=== PATIENT | female | born 1945 | race Caucasian/White ===

== ENCOUNTER 2017-07-25 07:26 | Emergency (ER) | payer MEDICARE, OTHER ==
[~2017-07-25] VITALS: Ht 144.8 cm; Wt 59.0 kg
--- OUTSIDE RECORDS SUMMARY | 2017-07-25 07:32 | XMS REPORT | Continuity of Care Document ---
Author Author [facility] Organization [facility] Address Unknown Phone Unavailable Allergies There is no data. Medications There is no data. Problems There is no data. Procedures There is no data. Results There is no data. Encounters ACCT No. Visit Date/Time Discharge Status Pt. Type Provider Facility Loc./Unit Complaint [id number] 01/31/2017 09:52:42 01/31/2017 23:59:59 [facility] Outpatient Rianna Monsalve [id number] 09/21/2015 13:25:23 09/21/2015 23:59:59 [facility] Outpatient Armando Guillaume [id number] 07/14/2015 10:42:11 07/14/2015 23:59:59 [facility] Outpatient Shama Hutton
--- OUTSIDE RECORDS SUMMARY | 2017-07-25 07:32 | XMS REPORT ---
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 Medications Active Name Start Date Estimated Completion Date SIG Comments alprazolam 0.5 mg oral tablet 01/31/2017 05/01/2017 TAKE 1/2 TO 1 TABLET DAILY IF NEEDED FOR ANXIETY levothyroxine 75 mcg oral tablet 2017 07/30/2017 take 1 tablet (75 mcg) by oral route once daily for 90 days losartan 50 mg oral tablet 2017 07/30/2017 take 1 tablet (50 mg) by oral route once daily for 90 days lovastatin 10 mg oral tablet 2017 07/30/2017 take 1 tablet (10 mg) by oral route once daily with the evening meal for 90 days Name Start Date Expiration Date SIG Comments lovastatin 10 mg oral tablet 09/07/2016 12/06/2016 take 1 tablet (10 mg) by oral route once daily with the evening meal for 90 days Problem List Not available. Vital Signs Date Time BP-Sys(mm[Hg] BP-Alia(mm[Hg]) HR(bpm) RR(rpm) Temp WT HT HC BMI BSA BMI Percentile O2 Sat(%) 01/31/2017 8:59:00 AM 130 mmHg 78 mmHg 78 bpm 18 rpm 97.5 F 135 lbs 58 in 28.21 kg/m2 1.58 m2 97 % Social History Name Description Comments Tobacco Former smoker smoked for years- quit 2009 Alcohol Use - Rare wine 3 or 4 a year Caffeine Current every day Exercises regularly walks daily retired History of Procedures Date Ordered Description Order Status 01/31/2017 12:00 AM Annual wellness visit, Medicare *Subsequent Visits* Reviewed 01/31/2017 12:00 AM Annual depression screening, 15 minutes Reviewed 01/31/2017 12:00 AM LIPID PANEL Reviewed 01/31/2017 12:00 AM COMPLETE CBC W/AUTO DIFF WBC Reviewed 01/31/2017 12:00 AM COMPREHEN METABOLIC PANEL Reviewed 01/31/2017 12:00 AM ROUTINE VENIPUNCTURE Reviewed 01/31/2017 12:00 AM ASSAY OF MAGNESIUM Reviewed 01/31/2017 12:00 AM ASSAY TRIIODOTHYRONINE (T3) Reviewed 01/31/2017 12:00 AM ASSAY OF FREE THYROXINE Reviewed 01/31/2017 12:00 AM ASSAY THYROID STIM HORMONE Reviewed Results Summary Date and Description Results 07/02/2015 8:05 AM TROPONIN-I AD <0.04 ng/mL 07/02/2015 2:00 PM TROPONIN-I AD <0.04 ng/mL 01/31/2017 9:35 AM WBC 6.0 RBC 4.40 HGB 13.40 g/dLHCT 39.30 %MCV 89.0 fLMCH 30.50 pgMCHC 34.10 g/dLRDW SD 39 RDW CV 11.90 %MPV 9.90 fLPLT 287 NRBC# 0.00 NRBC% 0.0 %NEUT 68.50 %%LYMP 20.50 %%MONO 8.80 %%EOS 1.50 %%BASO 0.50 %#NEUT 4.14 #LYMP 1.24 #MONO 0.53 #EOS 0.09 #BASO 0.03 MANUAL DIFF NOT IND GLUCOSE 102.0 mg/dLSODIUM 132.0 mmol/LPOTASSIUM 4.70 mmol/LCHLORIDE 99.0 mmol/LCO2 26.0 mmol/LBUN 8.0 mg/dLCREATININE 0.80 mg/dLSGOT/AST 16.0 IU/LSGPT/ALT 22.0 IU/LALK PHOS 101.0 IU/LTOTAL PROTEIN 6.90 g/dLALBUMIN 4.30 g/dLTOTAL BILI 0.60 mg/ dLCALCIUM 9.40 mg/dLAGE 71 GFR NonAA 71 GFR AA 86 eGFR >60 mL/min/1.73meGFR AA * >60 TRIGLYCERIDES 176.0 mg/dLCHOLESTEROL 234.0 mg/dLHDL 42.0 mg/dLTOT CHOL/ HDL 5.6 LDL (CALC) 157.0 mg/dLMAGNESIUM 2.10 mg/dLT3 TOTAL 94.0 ng/dLFREE T4 1.22 TSH 0.840 uIU/mL History Of Immunizations Not available. 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
--- OUTSIDE RECORDS SUMMARY | 2017-07-25 07:32 | XMS REPORT | CCD ---
Author Author RAJENDRA RADHA MITCHKelly Organization Unknown Address [address] [place] [id number] Care Team Providers Care Medical Reception Specialist Name Role Phone ANGIE DUNN, JULIET Valladares Attphymandy JULIET ADAMS MD Vital Signs Unknown or Not Available. Allergies Allergy Code Allergy Type Reaction Status CLEOCIN 20271224 Drug allergy Active CODEINE 2669 Drug allergy Active Procedures Procedure Code Procedure Type Date CX CHEST [address] 09/26/2015 TROPONIN-I ADV 231653950 SNOMED CT 09/26/[address] 09/26/2015 D DIMER QUANT 016226147 SNOMED CT 09/26/2015 COMPREHENSIVE METABOLIC PANEL 845710351 SNOMED CT 2015 CBC W/ AUTO DIFF (RFLX MAN DIFF IF IND) 3333019 SNOMED CT 09/26/[address] 09/26/2015 ^CBC W/AUTO DIFF 3150090 SNOMED CT 09/26/2015 History of Immunizations Unknown or Not Available. Problems Problem Code Start Date Resolved Date Status CHEST PAIN, RULE OUT ACUTE MYOCARDIAL INFARCTION 39585 Active Results COMPREHENSIVE METABOLIC PANEL - Collect Date/Time: 09/26/2015 14:05 Test Name Code Test Result Test Units Test Ref Range GLUCOSE 2345-7 93 MG/DL L=70 H=100 SODIUM 2951-2 132 MEQ/L L=135 H=148 POTASSIUM 2823-3 3.8 MEQ/L L=3.5 H=5.3 CHLORIDE 2075-0 98 MEQ/L L=96 H=110 CO2 2028-9 23 MEQ/L L=22 H=29 BUN 3094-0 8 MG/DL L=8 H=22 CREATININE 2160-0 0.7 MG/DL L=0.6 H=1.6 SGOT/AST 1920-8 14 IU/L L=10 H=40 SGPT/ALT 1742-6 19 IU/L L=8 H=54 ALK PHOS 6768-6 113 IU/L L=35 H=115 TOTAL PROTEIN 2885-2 7.4 G/DL L=5.5 H=8.5 ALBUMIN 1751-7 4.6 G/DL L=3.1 H=5.4 TOTAL BILI 1975-2 0.5 MG/DL L=0.0 H=1.5 CALCIUM 36662-8 9.7 MG/DL L=8.2 H=10.6 AGE 70 yrs GFR NonAA 83 GFR AA 101 eGFR >60 N/A eGFR AA* >60 N/A CBC W/ AUTO DIFF (RFLX MAN DIFF IF IND) - Collect Date/Time: 09/26/2015 14:05 Test Name Code Test Result Test Units Test Ref Range WBC 21867-3 8.1 TH/CMM L=4.5 H=10.8 RBC 789-8 4.79 ML/CMM L=4.20 H=5.40 HGB 718-7 14.6 G/DL L=12.0 H=16.0 HCT 4544-3 42.0 % L=37.0 H=47.0 MCV 88 FL L=81 H=99 MCH 30.5 PG L=27.0 H=33.0 MCHC 34.8 G/DL L=31.0 H=36.0 RDW SD 40 FL L=36 H=50 RDW CV 12.4 % L=0.0 H=14.8 MPV 9.3 FL L=9.3 H=12.5 PLT 777-3 278 TH/CMM L=130 H=440 NRBC# 0.00 TH/CMM L=0.00 H=0.00 NRBC% 0.0 /100WBC L=0.0 H=2.0 %NEUT 72.9 % %LYMP 19.0 % %MONO 7.1 % %EOS 0.9 % %BASO 0.1 % #NEUT 5.92 TH/CMM L=2.10 H=8.20 #LYMP 1.54 TH/CMM L=0.90 H=5.20 #MONO 0.58 TH/CMM L=0.16 H=1.00 #EOS 0.07 TH/CMM L=0.00 H=0.80 #BASO 0.01 TH/CMM L=0.00 H=0.20 MANUAL DIFF NOT IND N/A D DIMER QUANT - Collect Date/Time: 09/26/2015 14:05 Test Name Code Test Result Test Units Test Ref Range D-DIMER QUANT 28927-9 0.37 MG/L FEU L=0.00 H= 0.50 PT/PTT - Collect Date/Time: 09/26/2015 14:05 Test Name Code Test Result Test Units Test Ref Range PROTIME 00084-6 10.2 SEC L=9.9 H=11.9 INR 0.9 PTT 3173-2 27.4 SEC L=22.2 H=37.2 BNP - Collect Date/Time: 09/26/2015 14:05 Test Name Code Test Result Test Units Test Ref Range BNP 65511-0 13 PG/ML L=0 H=100 TROPONIN-I ADV - Collect Date/Time: 09/26/2015 14:05 Test Name Code Test Result Test Units [place] [address]-3 <0.04 ng/mL L=0.04 H= 0.40 MAGNESIUM - Collect Date/Time: 09/26/2015 14:05 Test Name Code Test Result Test Units Test Ref Range MAGNESIUM 14100-5 2.4 MG/DL L=1.7 H=2.8 Active Medications Medication Code Dose Units Frequency Route Modification Start Date/Time Aspirin 81MG Oral Tablet, Enteric Coated 972393 81 MILLIGRAMS DAILY ORAL 07/02/2015 15:03 Prescription Detail 81 MILLIGRAMS ORAL DAILY Ciprofloxacin 500MG Oral Tablet 791285 500 MILLIGRAMS TWO TIMES A DAY BY MOUTH 07/02/2015 15:03 Prescription Detail 500 MILLIGRAMS BY MOUTH TWO TIMES A DAYx 5 days Levothroid 75MCG Oral Tablet 930743 75 MCG DAILY ORAL 07/02/2015 15:03 Prescription Detail 75 MCG ORAL DAILY except on Monday when 2 tabs ( 150mcg) Lovastatin 10MG Oral Tablet 648004 10 MILLIGRAMS DAILY ORAL 07/02/2015 15:03 Prescription Detail 10 MILLIGRAMS ORAL DAILY Medications Administered During Visit Unknown or Not Available. Encounters Encounter Diagnosis Diagnosis Code Start Date Essential hypertension 73144167 09/26/2015 Social History Smoking Status Code Start Date End Date Never smoker [id number] Patient Decision Aids Unknown or Not Available. Discharge Instructions You were admitted to [facility] on 09/26/2015 13:24 with a principal diagnosis of Essential (primary) hypertension You had the following tests done: BNP CBC W/ AUTO DIFF (RFLX MAN DIFF IF IND) COMPREHENSIVE METABOLIC PANEL D DIMER QUANT MAGNESIUM PT/PTT TROPONIN-I ADV You were discharged from [facility] on 09/26/2015 16:43 Should you have any questions prior to discharge, please contact a member of your healthcare team. If you have left the hospital and have any questions, please contact your primary care physician. Chief Complaint and Reason For Visit Chief Complaint Date of Onset HIGH BLOOD PRESSURE Function Status Unknown or Not Available. Plan of Care Unknown or Not Available. Referral/Transition of Care Unknown or Not Available.
[2017-07-25] MEDS ORDERED: NS IV 1000 ML 1,000 ML IV ONE (07:40)
[2017-07-25] MEDS ORDERED: PROMETHAZINE INJ 25 MG/ML (PHENERGAN) AMP IVP ONE (07:45)
[2017-07-25 08:02] LABS: BASOPHILS % (AUTO) 0 % (0-10); EOSINOPHILS # (AUTO) 0.1 10^3/uL (0.0-0.3); EOSINOPHILS % (AUTO) 1 % (0-10); HEMATOCRIT 39 % (35-52); HEMOGLOBIN 13.4 G/DL (11.5-16.0); LYMPHOCYTES # (AUTO) 1.2 X 10^3 (1.0-4.0); LYMPHOCYTES % (AUTO) 13 % (12-44); MEAN CORPUSCULAR HEMOGLOBIN 30 PG (25-34); MEAN CORPUSCULAR HGB CONC 35 G/DL (32-36); MEAN CORPUSCULAR VOLUME 87 FL (80-99); MEAN PLATELET VOLUME 9.1 FL (7.4-10.4); MONOCYTES # (AUTO) 0.9 X 10^3 (0.0-1.0); MONOCYTES % (AUTO) 10 % (0-12); NEUTROPHILS # (AUTO) 6.8 X 10^3 (1.8-7.8); NEUTROPHILS % (AUTO) 76 % (42-75); PLATELET COUNT 289 10^3/uL (130-400); RED BLOOD COUNT 4.44 10^6/uL (4.35-5.85); RED CELL DISTRIBUTION WIDTH 12.1 % (10.0-14.5); WHITE BLOOD COUNT 8.9 10^3/uL (4.3-11.0)
[2017-07-25 08:19] LABS: ALANINE AMINOTRANSFERASE 25 U/L (0-55); ALKALINE PHOSPHATASE 103 U/L (40-136); BILIRUBIN,TOTAL 0.7 MG/DL (0.1-1.0); BUN/CREATININE RATIO 13; CALCIUM 9.3 MG/DL (8.5-10.1); CARBON DIOXIDE 25 MMOL/L (21-32); CHLORIDE 98 MMOL/L (98-107); CREATININE SERUM 0.77 MG/DL (0.60-1.30); GFR ESTIMATED > 60; GLUCOSE 119 MG/DL (70-105); MAGNESIUM 2.1 MG/DL (1.8-2.4); SODIUM 133 MMOL/L (135-145); TOTAL PROTEIN 6.9 GM/DL (6.4-8.2)
[2017-07-25] MEDS ORDERED: ALPR0.5T7 PO (08:25)
[2017-07-25] MEDS ORDERED: LEVO75TA6 PO (08:25)
[2017-07-25] MEDS ORDERED: LOSA50TA36 PO (08:25)
[2017-07-25] MEDS ORDERED: LOVA10TA PO (08:25)
[2017-07-25 08:40] LABS: FREE T4 (FREE THYROXINE) 1.11 NG/DL (0.70-1.48)
--- NOTE | 2017-07-25 09:10 | Diagnostic Imaging Report ---
CLINICAL INDICATION: Patient reports nausea/dizziness starting at 0430 hours. EXAM: Portable chest x-ray upright view. COMPARISONS: None. FINDINGS: Lungs/pleura: There is suspected mild left basilar atelectasis versus scarring. Otherwise, lungs are clear. There is no pneumothorax. There is no pleural effusion. Mediastinum: Unremarkable. Pulmonary vasculature: Unremarkable. Heart: Unremarkable. Bones/extrathoracic soft tissue: There are degenerative spurs involving the bilateral acromioclavicular joints. IMPRESSION: Suspected mild left basilar atelectasis versus scarring. Otherwise, there is no radiographic evidence of acute cardiopulmonary process. Dictated by: Dictated on workstation # [id number]
[2017-07-25 09:30] LABS: BILIRUBIN,URINE NEGATIVE (NEGATIVE); CLARITY,URINE CLEAR; COLOR,URINE YELLOW; GLUCOSE, URINE (UA) NEGATIVE (NEGATIVE); KETONES,URINE NEGATIVE (NEGATIVE); LEUKOCYTE ESTERASE ,URINE NEGATIVE (NEGATIVE); NITRITE,URINE NEGATIVE (NEGATIVE); PH,URINE 8 (5-9); PROTEIN,URINE NEGATIVE (NEGATIVE); UROBILINOGEN,URINE NORMAL (NORMAL)
[2017-07-25 09:46] LABS: AMORPHOUS SEDIMENT,UR FEW AMOR PHOSPHATE /LPF; BACTERIA,URINE NEGATIVE /HPF; SQUAMOUS EPITHELIAL CELL,UR 0-2 /HPF
--- NOTE | 2017-07-25 10:28 | ED Syncope ---
General Chief Complaint: Dizziness/Syncope Stated Complaint: WEAKNESS,SYNCOPE Nursing Triage Note: pt reports nausea/dizziness starting at 0430 am. Source of Information: Patient, EMS Exam Limitations: No Limitations History of Present Illness Time Seen by Provider: 07:29 Initial Comments This 72-year-old woman presents to emergency room via EMS after having fairly sudden onset of dizziness and suspected syncope at home. She woke at 04:00 with a severe cramp in her leg. She thinks she then lost consciousness, possibly because of passing out secondary to pain. She was sweaty and nauseated during the episode. EMS reports fingerstick blood sugar was 136. Temperature was 95.9. Zofran 4 mg was administered. Patient reports still feeling lightheaded. She denies any shortness of air or chest pain. She lost urine during the episode. There was no evidence of seizure-like activity or postictal state. She feels a little weak and chilled. She denies signs of infection such as cough or dysuria. She has had no prior episodes. Allergies and Home Medications Allergies Coded Allergies: codeine (Verified Allergy, Unknown, 07/25/17) Home Medications Alprazolam 0.5 Mg Tablet, 0.25 MG PO PRN, (Reported) Levothyroxine Sodium 75 Mcg Tablet, 75 MCG PO DAILY, (Reported) Losartan Potassium 50 Mg Tablet, 50 MG PO DAILY, (Reported) Lovastatin 10 Mg Tablet, 10 MG PO DAILY, (Reported) Constitutional: see HPI EENTM: no symptoms reported Respiratory: no symptoms reported Cardiovascular: see HPI, syncope Gastrointestinal: see HPI Genitourinary: see HPI : No Musculoskeletal: see HPI Skin: no symptoms reported Psychiatric/Neurological: No Symptoms Reported Past Fjiivsy-Dmydaj-Afombn Hx Patient Social History Alcohol Use: Rarely Uses Recreational Drug Use: No Smoking Status: Former Smoker Former Smoker, Quit: Aug 03, 2009 2nd Hand Smoke Exposure: No Recent Foreign Travel: No Contact w/Someone Who Travel: No Recent Infectious Disease Expo: No Recent Hopitalizations: No Physical Abuse: No Sexual Abuse: No Mistreated: No Fear: No Surgeries History of Surgeries: Yes (r shoulder, r/l carpal tunnel, r hand ) Surgeries: Hysterectomy, Oophorectomy, Orthopedic Respiratory History of Respiratory Disorde: No Cardiovascular History of Cardiac Disorders: Yes Cardiac Disorders: High Cholesterol, Hypertension Neurological History of Neurological Disord: No Genitourinary History of Genitourinary Disor: No Gastrointestinal History of Gastrointestinal Di: No Musculoskeletal History of Musculoskeletal Dis: No Endocrine History of Endocrine Disorders: Yes Endocrine Disorders: Hypothyroidsim HEENT History of HEENT Disorders: No Cancer History of Cancer: No Psychosocial History of Psychiatric Problem: Yes Behavioral Health Disorders: Anxiety Suicide Risk Score: 0 Blood Transfusions History of Blood Disorders: No Adverse Reaction to a Blood Tr: No Physical Exam Vital Signs Vital Sign - Last 12Hours 07/25/17 07:45 Temp 97.2 Pulse 64 Resp 15 B/P (MAP) 173/94 (120) Pulse Ox 99 Capillary Refill : Less Than 3 Seconds General Appearance: No Apparent Distress, WD/WN HEENT: PERRL/EOMI, Normal ENT Inspection, Other (Referring somewhat dry. Tympanic membrane's obscured by cerumen bilaterally) Neck: Normal Inspection, Non Tender, Supple, No Carotid Bruit, No JVD Cardiovascular: Regular Rate, Rhythm, No Edema, No Murmur, Normal Peripheral Pulses Respiratory: Lungs Clear, Normal Breath Sounds, No Accessory Muscle Use, No Respiratory Distress Gastrointestinal: Normal Bowel Sounds, Non Tender, Soft Back: Normal Inspection Extremities: Normal Inspection, Non Tender, No Calf Tenderness, No Pedal Edema , Other (Negative Nichole. 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 Norm as Tested Cranial Nerves: Normal Hearing, Normal Speech, PERRL Motor/Sensory: No Motor Deficit, No Sensory Deficit, No Pronator Drift Skin: Normal Color, Warm/Dry Progress/Results/Core Measures Results/Orders Lab Results Laboratory Tests Test 07/25/17 07:52 07/25/17 09:25 Range/Units White Blood Count 8.9 4.3-11.0 10^3/uL Red Blood Count 4.44 4.35-5.85 10^6/uL Hemoglobin 13.4 11.5-16.0 G/DL Hematocrit 39 35-52 % Mean Corpuscular Volume 87 80-99 FL Mean Corpuscular Hemoglobin 30 25-34 PG Mean Corpuscular Hemoglobin Concent 35 32-36 G/DL Red Cell Distribution Width 12.1 10.0-14.5 % Platelet Count 289 130-400 10^3/uL Mean Platelet Volume 9.1 7.4-10.4 FL Neutrophils (%) (Auto) 76 H 42-75 % Lymphocytes (%) (Auto) 13 12-44 % Monocytes (%) (Auto) 10 0-12 % Eosinophils (%) (Auto) 1 0-10 % Basophils (%) (Auto) 0 0-10 % Neutrophils # (Auto) 6.8 1.8-7.8 X 10^3 Lymphocytes # (Auto) 1.2 1.0-4.0 X 10^3 Monocytes # (Auto) 0.9 0.0-1.0 X 10^3 Eosinophils # (Auto) 0.1 0.0-0.3 10^3/uL Basophils # (Auto) 0.0 0.0-0.1 10^3/uL Sodium Level 133 L 135-145 MMOL/L Potassium Level 5.0 3.6-5.0 MMOL/L Chloride Level 98 98-107 MMOL/L Carbon Dioxide Level 25 21-32 MMOL/L Anion Gap 10 5-14 MMOL/L Blood Urea Nitrogen 10 7-18 MG/DL Creatinine 0.77 0.60-1.30 MG/DL Estimat Glomerular Filtration Rate > 60 BUN/Creatinine Ratio 13 Glucose Level 119 H 70-105 MG/DL Calcium Level 9.3 8.5-10.1 MG/DL Magnesium Level 2.1 1.8-2.4 MG/DL Total Bilirubin 0.7 0.1-1.0 MG/DL Aspartate Amino Transf (AST/SGOT) 17 5-34 U/L Alanine Aminotransferase (ALT/SGPT) 25 0-55 U/L Alkaline Phosphatase 103 40-136 U/L Troponin I < 0.30 <0.30 NG/ML Total Protein 6.9 6.4-8.2 GM/DL Albumin 4.0 3.2-4.5 GM/DL Thyroid Stimulating Hormone (TSH) 4.93 0.35-4.94 UIU/ML Free Thyroxine 1.11 0.70-1.48 NG/DL Urine Color YELLOW Urine Clarity CLEAR Urine pH 8 5-9 Urine Specific Henry 1.015 L 1.016-1.022 Urine Protein NEGATIVE NEGATIVE Urine Glucose (UA) NEGATIVE NEGATIVE Urine Ketones NEGATIVE NEGATIVE Urine Nitrite NEGATIVE NEGATIVE Urine Bilirubin NEGATIVE NEGATIVE Urine Urobilinogen NORMAL NORMAL MG/DL Urine Leukocyte Esterase NEGATIVE NEGATIVE Urine RBC (Auto) NEGATIVE NEGATIVE Urine RBC NONE /HPF Urine WBC NONE /HPF Urine Squamous Epithelial Cells 0-2 /HPF Urine Crystals PRESENT H /LPF Urine Amorphous Sediment FEW KEMAR PHOSPHATE H /LPF Urine Bacteria NEGATIVE /HPF Urine Casts NONE /LPF Urine Mucus NEGATIVE /LPF Urine Culture Indicated NO Micro Results Microbiology 07/25/17 Influenza Types A,B Antigen (BETH) - Final, Complete My Orders Orders - KATARZYNA MITTAL MD Cbc With Automated Diff (07/25/17 07:40) Comprehensive Metabolic Panel (07/25/17 07:40) Magnesium (07/25/17 07:40) Thyroid Stimulating Hormone (07/25/17 07:40) Troponin I (07/25/17 07:40) Ua Culture If Indicated (07/25/17 07:40) Free T4 (Free Thyroxine) (07/25/17 07:40) Saline Lock/Iv-Start (07/25/17 07:40) Ns Iv 1000 Ml (Sodium Chloride 0.9%) (07/25/17 07:40) Promethazine Injection (Phenergan Injec (07/25/17 07:45) Ekg Tracing (07/25/17 07:40) Monitor-Rhythm Ecg Trace Only (07/25/17 07:40) Influenza A And B Antigens (07/25/17 07:46) Saline Lock/Iv-Start (07/25/17 07:46) Chest 1 View, Ap/Pa Only (07/25/17 08:48) Medications Given in ED Current Medications Medications Dose Ordered Sig/Fátima Route Start Time Stop Time Status Last Admin Dose Admin Promethazine HCl 12.5 mg ONCE ONCE IVP 07/25/17 07:45 07/25/17 07:46 DC 07/25/17 08:12 12.5 MG Sodium Chloride 1,000 ml @ 0 mls/hr Q0M ONCE IV 07/25/17 07:40 07/25/17 07:46 DC 07/25/17 08:12 0 MLS/HR Vital Signs/I&O Vital Sign - Last 12Hours 07/25/17 07/25/17 07:45 11:05 Temp 97.2 98.6 Pulse 64 72 Resp 15 16 B/P (MAP) 173/94 (120) Pulse Ox 99 98 Blood Pressure Mean: 120 Progress Note : Progress Note Workup was unremarkable. Promethazine was given for residual nausea. Patient received a liter of IV fluids. Lightheadedness resolved. She was able to ambulate with out neurologic deficit. She does have some difficulty ambulating due to chronic left foot pain. She is ultimately discharged in stable condition. ECG Initial ECG Impression Date: Jul 25, 2017 Initial ECG Impression Time: 07:31 Initial ECG Rate: 64 Initial ECG Rhythm: Normal Sinus Initial ECG Intervals: Normal Initial ECG Impression: Normal Comment Normal sinus rhythm with no ST elevation or depression. No abnormal intervals or axis deviation. Diagnostic Imaging Diagonstic Imaging: Xray Plain Films/CT/US/NM/MRI: chest Comments Chest x-ray viewed by me. Report reviewed. See report below: NAME: NOEMI [facility] REC#: [id number] PT STATUS: DEP ER : 1945 PHYSICIAN: KATARZYNA MITTAL MD ADMIT DATE: 07/25/17/ER Signed Date of Exam: 07/25/17 CHEST 1 VIEW, AP/PA ONLY CLINICAL INDICATION: Patient reports nausea/dizziness starting at 0430 hours. EXAM: Portable chest x-ray upright view. COMPARISONS: None. FINDINGS: Lungs/pleura: There is suspected mild left basilar atelectasis versus scarring. Otherwise, lungs are clear. There is no pneumothorax. There is no pleural effusion. Mediastinum: Unremarkable. Pulmonary vasculature: Unremarkable. Heart: Unremarkable. Bones/extrathoracic soft tissue: There are degenerative spurs involving the bilateral acromioclavicular joints. IMPRESSION: Suspected mild left basilar atelectasis versus scarring. Otherwise, there is no radiographic evidence of acute cardiopulmonary process. Dictated by: Dictated on workstation # [id number] Dict: 07/25/17 0907 Trans: 07/25/17 1718 Interpreted by: CAMRON PRIETO MD Departure Impression Impression: Primary Impression: Syncope Qualified Codes: R55 - Syncope and collapse Additional Impressions: Lightheadedness Nausea Cerumen impaction Qualified Codes: H61.20 - Impacted cerumen, unspecified ear Left foot pain Disposition: 01 HOME, SELF-CARE Condition: Improved Departure-Patient Inst. Decision time for Depature: 10:20 Referrals: NO,LOCAL PHYSICIAN (PCP) Primary Care Physician CHEYENNE TOLEDO DPM Patient Instructions: Syncope (Fainting) (DC) Add. Discharge Instructions: Follow-up with your primary care provider as soon as possible. Return to the emergency room if you have worsening symptoms again. Drink plenty of clear liquids and continue your medications as previously prescribed. Follow-up with a theater education teacher for your left foot pain and overriding toes. Use an [id number] earwax removal drops for your cerumen impaction. All discharge instructions reviewed with patient and/or family. Voiced understanding. KATARZYNA MITTAL MD Jul 25, 2017 10:28
[2017-07-25 11:05] VITALS: BP 142/60
== END 2017-07-25 10:51 | disposition home or self-care (01) ==
LOC: ER 07:29
DX: R55 Syncope and collapse (principal); R42 Dizziness and giddiness; H61.20 Impacted cerumen, unspecified ear; R11.0 Nausea; M79.672 Pain in left foot; F41.9 Anxiety disorder, unspecified; E03.9 Hypothyroidism, unspecified; E78.00 Pure hypercholesterolemia, unspecified; I10 Essential (primary) hypertension; Z90.710 Acquired absence of both cervix and uterus; Z87.891 Personal history of nicotine dependence
CPT/HCPCS: 36415; 71045; 80053; 81000; 83735; 84439; 84443; 84484; 85025; 87804; 93005; 93041

== ENCOUNTER → 2017-09-30 | Outpatient (CLI) | payer MEDICARE, OTHER ==
[~2017-09-30] MED LIST: ALPR0.5T7 PO; LEVO75TA6 PO; LOSA50TA36 PO; LOVA10TA PO
--- NOTE | 2017-09-30 16:31 | Diagnostic Imaging Report ---
EXAM: Lumbar spine - 2-3 views. INDICATION: Fall. COMPARISON: None. FINDINGS: There are five lumbar type vertebral bodies. Normal alignment. Vertebral body heights are preserved. Mild diffuse degenerative endplate changes and lower lumbar facet arthropathy. Sacroiliac joints are unremarkable. The sacrum is normal, where seen. IMPRESSION: Mild spondylotic changes in the lumbar spine. No acute osseous findings. Dictated by: Dictated on workstation # [id number]
--- NOTE | 2017-09-30 16:32 | Diagnostic Imaging Report ---
EXAM: PELVIS WITH RIGHT HIP 2-3VIEWS INDICATION: FALL COMPARISON: None. FINDINGS: No fracture or malalignment. Mild degenerative changes in the visualized lower lumbar spine and pubic symphysis. Large amount of stool throughout the visualized colon. Soft tissue shadows are otherwise unremarkable. IMPRESSION: No acute radiographic findings in the pelvis. Dictated by: Dictated on workstation # [id number]
== END ==
LOC: RAD 15:25
PROVIDERS: ATTEND Nurse Practitioner Family
DX: M47.816 Spondylosis without myelopathy or radiculopathy, lumbar region (principal); R10.2 Pelvic and perineal pain; W19.XXXA Unspecified fall, initial encounter
CPT/HCPCS: 72100

== ENCOUNTER 2018-01-09 14:58 | Outpatient (RCR) | payer MEDICARE, OTHER ==
[~2018-01-09 14:58] MED LIST changes: +AMLO5TAB2 PO; +ASPI-586 PO; +ASPI-983 PO; +CHOL100048 PO; +FISH1CAP15 PO; +GABA-486 PO; +LEVOTHROID; +MULT-593 PO
== END 2018-01-09 17:08 | disposition home or self-care (01) ==
PROVIDERS: ATTEND Family Medicine
DX: M54.41 Lumbago with sciatica, right side (principal); R53.1 Weakness

== ENCOUNTER → 2018-04-12 | Outpatient (CLI) | payer MEDICARE, OTHER ==
[~2018-04-12] MED LIST changes: -AMLO5TAB2 PO; +AMLO5TAB7 PO; -LOSA50TA36 PO; +LOSA50TA7 PO
--- NOTE | 2018-04-12 16:26 | Diagnostic Imaging Report ---
EXAMINATION: Lumbar spine at 11:07 a.m. INDICATION: Fell, back pain. FINDINGS: AP, lateral, and spot lateral views were obtained. The lateral view shows the vertebral body heights and alignment to be generally within normal limits and similar to the prior exam of 09/30/2017. There is no fracture or acute bony abnormality evident. The osseous structures do seem demineralized however. There is no sign of a paraspinal mass. There is moderate symmetrical sclerosis of the sacroiliac joints. The sacrum and coccyx where visualized show no abnormality. IMPRESSION: 1. There is no evidence for an acute bony abnormality. 2. If clinical concern regarding an acute or subacute abnormality persists and further imaging is desired, then MRI will be recommended. Dictated by: Dictated on workstation # [id number]
--- NOTE | 2018-04-12 18:11 | Diagnostic Imaging Report ---
EXAMINATION: Right shoulder at 11:07 a.m. INDICATION: Fell, shoulder pain. FINDINGS: Three views were obtained. There is no fracture, dislocation, or acute bony abnormality evident. There is moderate degenerative disease involving the glenohumeral joint and the acromioclavicular joint does seem widened. This finding is similar to the prior chest exam of 11/10/2017. I suspect that this appearance is related to a long-standing acromioclavicular separation. The soft tissues are unremarkable. IMPRESSION: There is no evidence for an acute bony abnormality. Dictated by: Dictated on workstation # [id number]
== END ==
LOC: RAD 10:15
PROVIDERS: ATTEND Nurse Practitioner Family
DX: M25.511 Pain in right shoulder (principal); M54.5 Low back pain; W19.XXXA Unspecified fall, initial encounter
CPT/HCPCS: 72100; 73030

== ENCOUNTER 2018-07-10 09:31 | Outpatient (RCR) | payer MEDICARE, OTHER | END 2018-07-10 10:23 | disposition home or self-care (01) | PROVIDERS: ATTEND Nurse Practitioner Family | DX: M54.5 Low back pain (principal); M25.511 Pain in right shoulder ==

== ENCOUNTER 2018-10-31 09:36 | Emergency (ER) | payer MEDICARE, OTHER ==
[~2018-10-31] VITALS: Ht 160 cm; Wt 56.7 kg
[~2018-10-31 09:36] MED LIST changes: -AMLO5TAB7 PO; +AMLO5TAB9 PO; +LOSA50TA63 PO; -LOSA50TA7 PO
--- OUTSIDE RECORDS SUMMARY | 2018-10-31 09:42 | XMS REPORT | CCD ---
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 Name Role Phone PP Unavailable CCM Unavailable Summary Purpose Interface Exchange Insurance Providers Payer name Policy type / Coverage type Covered libertarian ID Effective Begin Date Effective End Date [employer] Medicare Part B [id number] Unknown [employer] Medicare Part B [id number] Unknown Family history Sister Diagnosis Age At Onset Breast cancer Unknown Depression Unknown Hypertension Unknown Alcoholism Unknown Cancer Unknown Mother Diagnosis Age At Onset kidney disease Unknown Hypertension Unknown Arthritis Unknown Osteoporosis Unknown Father Diagnosis Age At Onset Skin cancer Unknown Hypertension Unknown Brother Diagnosis Age At Onset Hypertension Unknown Social History Social History Element Codes Description Effective Dates Marital status Unknown 11/17/2017 Number of children Unknown 3 11/17/2017 Employment Unknown Retired 11/17/[address]: 6805850 Former smoker Quit in 200911/17/[address]: 200984819 Never drinks alcohol 11/17/2017 Allergies, Adverse Reactions, Alerts Substance Reaction Codes Entered Date Inactivated Date Status * NO KNOWN ENVIRONMENTAL ALLERGIES Unknown 11/17/2017 No Inactive Date Active * OTHER REACTION - SEE ANSWER BOX "[place]" Unknown 11/17/2017 No Inactive Date Active * NO KNOWN FOOD ALLERGIES Unknown 11/17/2017 No Inactive Date Active CODEINE RxNorm: 2670 11/17/2017 No Inactive Date Active Past Medical History Illness Codes Condition Status Onset Date Resolved Date Essential (primary) hypertension ICD-9: 401.1 ICD-10: I10 Active 11/17/2017 Unknown Hypothyroidism, unspecified ICD-9: 244.9 ICD-10: E03.9 Active 04/12/2018 Unknown Mixed hyperlipidemia ICD-9: 272.2 ICD-10: E78.2 Active 11/17/2017 Unknown Nasal congestion ICD-9 : 478.19 ICD-10: R09.81 Active 10/09/2018 Unknown Hypothryroidism Unknown Active 04/12/2018 Unknown Hypo-osmolality and hyponatremia ICD-9: 276.1 ICD-10: E87.1 Active 11/17/2017 Unknown Low back pain ICD-9: 724.2 ICD-10: M54.5 Active 04/12/2018 Unknown Pain in right shoulder ICD-9: 719.41 ICD-10: M25.511 Active 01/09/2018 Unknown Hyperlipidemia Unknown Active 11/17/2017 Unknown Hypertension Unknown Active 11/17/2017 Unknown Hypothyroid Unknown Active 11/17/2017 Unknown Problems Condition Codes Effective Dates Condition Status Essential (primary) hypertension ICD-9: 401.1 ICD-10: I10 11/17/2017 Active Hypothyroidism, unspecified ICD-9: 244.9 ICD-10: E03.9 04/12/2018 Active Mixed hyperlipidemia ICD-9: 272.2 ICD-10: E78.2 11/17/2017 Active Nasal congestion ICD-9 : 478.19 ICD-10: R09.81 10/09/2018 Active Hypothryroidism Unknown 04/12/2018 Active Hypo-osmolality and hyponatremia ICD-9: 276.1 ICD-10: E87.1 11/17/2017 Active Low back pain ICD-9: 724.2 ICD-10: M54.5 04/12/2018 Active Pain in right shoulder ICD-9: 719.41 ICD-10: M25.511 01/09/2018 Active Hyperlipidemia Unknown 11/17/2017 Active Hypertension Unknown 11/17/2017 Active Hypothyroid Unknown 11/17/2017 Active Medications Medication Codes Instructions Start Date Stop Date Status Fill Instructions amlodipine 5 mg tablet RxNorm: 122890 TAKE 1 & 1/2 (ONE & ONE-HALF) TABLETS BY MOUTH ONCE DAILY 08/01/2018 No Stop Date Active lovastatin 10 mg tablet RxNorm: 817984 1 Tablet(s) PO daily 10/201706/20/2019 Active levothyroxine 75 mcg tablet RxNorm: 983596 1 Tablet(s) PO daily 04/13/2018 08/10/2018 Inactive levothyroxine 75 mcg tablet RxNorm: 820375 1 Tablet(s) PO daily 04/13/2018 04/12/2018 Inactive alprazolam 0.5 mg tablet RxNorm: 176127 1/2-1 Tablet(s) PO QDAY PRN 01/09/2018 No Stop Date Active amlodipine 5 mg tablet RxNorm: 944458 1.5 Tablet(s) PO daily 07/07/2018 Inactive dose change to 1.5 tab daily levothyroxine 88 mcg tablet RxNorm: 832227 1 Tablet(s) PO daily 12/08/2017 06/05/2018 Inactive amlodipine 5 mg tablet RxNorm: 874385 1.5 Tablet(s) PO daily 01/08/2018 Inactive dose change to 1.5 tab daily amlodipine 5 mg tablet RxNorm: 629875 1 Tablet(s) PO daily 04/201812/07/2017 Inactive d/c order for 10mg dose amlodipine 10 mg tablet RxNorm: 836292 1 Tablet(s) PO daily 02/201811/29/2017 Inactive aspirin 81 mg effervescent tablet RxNorm: 5484199 1 Tablet(s) PO daily No Start Date Active multivitamin with minerals capsule RxNorm: 1 Capsule(s) PO daily No Start Date Active Vitamin D3 1,000 unit tablet RxNorm: 663117 1 Tablet(s) PO daily No Start Date Active fish oil-dha-epa 1,200 mg-144 mg-216 mg capsule RxNorm: 1 Capsule(s) PO daily No Start Date Active lovastatin 10 mg tablet RxNorm: 986897 1 Tablet(s) PO daily No Start Date 06/25/2018 Inactive alprazolam 0.5 mg tablet RxNorm: 408670 1/2-1 Tablet(s) PO QDAY PRN No Start Date 01/08/2018 Inactive levothyroxine 88 mcg tablet RxNorm: 457347 1 Tablet(s) PO daily No Start Date 12/07/2017 Inactive gabapentin 100 mg capsule RxNorm: 147655 1 Capsule(s) PO QHS No Start Date 04/11/2018 Inactive amlodipine 5 mg tablet RxNorm: 847705 1 Tablet(s) PO daily No Start Date 11/27/2017 Inactive Medication Administered No Medication Administered data Immunizations Vaccine Codes Date Status Influenza CVX: 141 03/24/2017 completed Pneumococcal CVX: 33 01/22/2016 completed Tetanus, Diptheria, Pertussis CVX: 113 completed Tetanus/Diptheria CVX: 113 01/22/1992 completed Assessments Condition Codes Effective Dates Nasal congestion ICD-10: R09.81 ICD-9: 478.19 10/09/2018 Mixed hyperlipidemia ICD-10: E78.2 ICD-9: 272.2 10/09/2018 Hypothyroidism, unspecified ICD-10: E03.9 ICD-9: 244.9 10/09/2018 Essential (primary) hypertension ICD-10: I10 ICD-9: 401.1 10/09/2018 Low back pain ICD-10: M54.5 ICD-9: 724.2 04/12/2018 Pain in right shoulder ICD-10: M25.511 ICD-9: 719.41 04/12/2018 Hypo-osmolality and hyponatremia ICD-10: E87.1 ICD-9: 276.1 12/08/2017 Reason For Visit Reason For Visit Effective Dates Notes hypertension 10/09/2018 hypertension 04/12/2018 hypertension 01/09/2018 hypertension 12/08/2017 hypertension 11/28/2017 hypertension 11/17/2017 Results Observation Observation Code Item Item Code Result Date Comp Metabolic Ooi325 NA 138 mEq/L 10/09/2018 Comp Metabolic Npz769 K 4.1 mEq/L 10/09/2018 Comp Metabolic Hnh006 CL 103 mEq/L 10/09/2018 Comp Metabolic Wtu507 CO2 29.0 mEq/L 10/09/2018 Comp Metabolic Muf346 ANION GAP 10 10/09/2018 Comp Metabolic Rjk661 GLUCOSE 99 mg/dL 10/09/2018 Comp Metabolic Ngi629 Creat 0.8 mg/dL 10/09/2018 Comp Metabolic Ubs373 eGFR 79 ml/min/1.73m2 10/09/2018 Comp Metabolic Rfl804 BUN 13 mg/dL 10/09/2018 Comp Metabolic Hgl180 B/C Ratio 17.1 Ratio 10/09/2018 Comp Metabolic Ato921 CALCIUM 9.5 mg/dL 10/09/2018 Comp Metabolic Vxz084 ALK PHOS 112 U/L 10/09/2018 Comp Metabolic Szi042 AST(SGOT) 14 U/L 10/09/2018 Comp Metabolic Els543 ALT(SGPT) 17 U/L 10/09/2018 Comp Metabolic Tqw682 BILI T 0.5 mg/dL 10/09/2018 Comp Metabolic Kkj042 ALBUMIN 4.1 g/dL 10/09/2018 Comp Metabolic Alo753 TPRO 6.5 g/dL 10/09/2018 Comp Metabolic Cjs754 GLOB 2.4 g/dL 10/09/2018 Comp Metabolic Poy821 A/G Ratio 1.8 Ratio 10/09/2018 Comp Metabolic Vkx296 Osmo 276 mOsmo 10/09/2018 Free T4 Dcn676 FREE T4 1.09 ng/dL 10/09/2018 Tsh Ord6 TSH (3rd IS) 1.12 uIU/mL 10/09/2018 Cbc With Differential Ord2 WBC 9.77 K/ul 10/09/2018 Cbc With Differential Ord2 RBC 4.49 M/ul 10/09/2018 Cbc With Differential Ord2 HGB 13.5 g/dl 10/09/2018 Cbc With Differential Ord2 HCT 39.9 % 10/09/2018 Cbc With Differential Ord2 Neut% 75.2 % 10/09/2018 Cbc With Differential Ord2 Lymph% 14.4 % 10/09/2018 Cbc With Differential Ord2 MCV 88.9 fl 10/09/2018 Cbc With Differential Ord2 [place]% 8.6 % 10/09/2018 Cbc With Differential Ord2 MCH 30.1 pg 10/09/2018 Cbc With Differential Ord2 Eos% 1.7 % 10/09/2018 Cbc With Differential Ord2 MCHC 33.8 pg 10/09/2018 Cbc With Differential Ord2 PLT 307 K/ul 10/09/2018 Cbc With Differential Ord2 Baso% 0.1 % 10/09/2018 Cbc With Differential Ord2 Neut ABS# 7.34 K/ul 10/09/2018 Cbc With Differential Ord2 RDW 12.8 % 10/09/2018 Cbc With Differential Ord2 Lymph ABS# 1.41 K/ul 10/09/2018 Cbc With Differential Ord2 [place] ABS# 0.8 K/ul 10/09/2018 Cbc With Differential Ord2 Eos ABS# 0.2 K/ul 10/09/2018 Cbc With Differential Ord2 Baso ABS# 0.0 K/ul 10/09/2018 Lipid Ord30 CHOL 212 mg/dL 10/09/2018 Lipid Ord30 HDL 47.0 mg/dl 10/09/2018 Lipid Ord30 TRIG 175 mg/dL 10/09/2018 Lipid Ord30 LDL 130 mg/dL 10/09/2018 Lipid Ord30 C/HDL 4.5 Ratio 10/09/2018 Tsh Ord6 TSH (3rd IS) 0.06 uIU/mL 04/12/2018 Free T4 Ixh875 FREE T4 1.38 ng/dL 04/12/2018 Lipid Ord30 CHOL 199 mg/dL 04/12/2018 Lipid Ord30 HDL 42.0 mg/dl 04/12/2018 Lipid Ord30 TRIG 141 mg/dL 04/12/2018 Lipid Ord30 LDL 129 mg/dL 04/12/2018 Lipid Ord30 C/HDL 4.7 Ratio 04/12/2018 Cbc With Differential Ord2 WBC 5.00 K/ul 04/12/2018 Cbc With Differential Ord2 RBC 4.64 M/ul 04/12/2018 Cbc With Differential Ord2 HGB 13.5 g/dl 04/12/2018 Cbc With Differential Ord2 HCT 40.6 % 04/12/2018 Cbc With Differential Ord2 Neut% 59.6 % 04/12/2018 Cbc With Differential Ord2 MCV 87.5 fl 04/12/2018 Cbc With Differential Ord2 Lymph% 26.0 % 04/12/2018 Cbc With Differential Ord2 MCH 29.1 pg 04/12/2018 Cbc With Differential Ord2 [place]% 11.0 % 04/12/2018 Cbc With Differential Ord2 MCHC 33.3 pg 04/12/2018 Cbc With Differential Ord2 Eos% 3.2 % 04/12/2018 Cbc With Differential Ord2 PLT 289 K/ul 04/12/2018 Cbc With Differential Ord2 Baso% 0.2 % 04/12/2018 Cbc With Differential Ord2 RDW 12.9 % 04/12/2018 Cbc With Differential Ord2 Neut ABS# 2.98 K/ul 04/12/2018 Cbc With Differential Ord2 Lymph ABS# 1.30 K/ul 04/12/2018 Cbc With Differential Ord2 [place] ABS# 0.6 K/ul 04/12/2018 Cbc With Differential Ord2 Eos ABS# 0.2 K/ul 04/12/2018 Cbc With Differential Ord2 Baso ABS# 0.0 K/ul 04/12/2018 Comp Metabolic Gzd771 NA 141 mEq/L 04/12/2018 Comp Metabolic Hzo631 K 3.9 mEq/L 04/12/2018 Comp Metabolic Vwy245 CL 106 mEq/L 04/12/2018 Comp Metabolic Glo406 CO2 28.0 mEq/L 04/12/2018 Comp Metabolic Twb359 ANION GAP 11 04/12/2018 Comp Metabolic Sdc911 GLUCOSE 92 mg/dL 04/12/2018 Comp Metabolic Rgb344 Creat 0.7 mg/dL 04/12/2018 Comp Metabolic Dtc459 eGFR 95 ml/min/1.73m2 04/12/2018 Comp Metabolic Arf240 BUN 9 mg/dL 04/12/2018 Comp Metabolic Jtm752 B/C Ratio 13.8 Ratio 04/12/2018 Comp Metabolic Glk634 CALCIUM 9.3 mg/dL 04/12/2018 Comp Metabolic Hie313 ALK PHOS 93 U/L 04/12/2018 Comp Metabolic Ktu402 AST(SGOT) 14 U/L 04/12/2018 Comp Metabolic Rww358 ALT(SGPT) 14 U/L 04/12/2018 Comp Metabolic Waj772 BILI T 0.4 mg/dL 04/12/2018 Comp Metabolic Dts901 ALBUMIN 4.0 g/dL 04/12/2018 Comp Metabolic Tsc918 TPRO 6.4 g/dL 04/12/2018 Comp Metabolic Bqw917 GLOB 2.4 g/dL 04/12/2018 Comp Metabolic Afe790 A/G Ratio 1.7 Ratio 04/12/2018 Comp Metabolic Kco211 Osmo 280 mOsmo 04/12/2018 Comp Metabolic Flq205 NA 139 mEq/L 12/08/2017 Comp Metabolic Tzn134 K 4.1 mEq/L 12/08/2017 Comp Metabolic Nbq399 CL 103 mEq/L 12/08/2017 Comp Metabolic Qcw108 CO2 28.0 mEq/L 12/08/2017 Comp Metabolic Ure298 ANION GAP 12 12/08/2017 Comp Metabolic Rna345 GLUCOSE 120 mg/dL 12/08/2017 Comp Metabolic Ukt852 Creat 0.7 mg/dL 12/08/2017 Comp Metabolic Rwg583 eGFR 90 ml/min/1.73m2 12/08/2017 Comp Metabolic Rol019 BUN 10 mg/dL 12/08/2017 Comp Metabolic Pjp560 B/C Ratio 14.7 Ratio 12/08/2017 Comp Metabolic Bxx023 CALCIUM 9.6 mg/dL 12/08/2017 Comp Metabolic Yon513 ALK PHOS 120 U/L 12/08/2017 Comp Metabolic Vsi957 AST(SGOT) 11 U/L 12/08/2017 Comp Metabolic Eoc609 ALT(SGPT) 13 U/L 12/08/2017 Comp Metabolic Dde905 BILI T 0.4 mg/dL 12/08/2017 Comp Metabolic Kvd616 ALBUMIN 4.0 g/dL 12/08/2017 Comp Metabolic Oxg267 TPRO 6.3 g/dL 12/08/2017 Comp Metabolic Enm711 GLOB 2.3 g/dL 12/08/2017 Comp Metabolic Dzw300 A/G Ratio 1.7 Ratio 12/08/2017 Comp Metabolic Yps394 Osmo 278 mOsmo 12/08/2017 Lipid Ord30 CHOL 207 mg/dL 11/17/2017 Lipid Ord30 HDL 48.0 mg/dl 11/17/2017 Lipid Ord30 TRIG 186 mg/dL 11/17/2017 Lipid Ord30 LDL 122 mg/dL 11/17/2017 Lipid Ord30 C/HDL 4.3 Ratio 11/17/2017 Cbc With Differential Ord2 WBC 8.79 K/ul 11/17/2017 Cbc With Differential Ord2 RBC 4.63 M/ul 11/17/2017 Cbc With Differential Ord2 HGB 13.8 g/dl 11/17/2017 Cbc With Differential Ord2 HCT 40.6 % 11/17/2017 Cbc With Differential Ord2 Neut% 68.8 % 11/17/2017 Cbc With Differential Ord2 MCV 87.7 fl 11/17/2017 Cbc With Differential Ord2 Lymph% 17.5 % 11/17/2017 Cbc With Differential Ord2 MCH 29.8 pg 11/17/2017 Cbc With Differential Ord2 [place]% 11.8 % 11/17/2017 Cbc With Differential Ord2 MCHC 34.0 pg 11/17/2017 Cbc With Differential Ord2 Eos% 1.3 % 11/17/2017 Cbc With Differential Ord2 PLT 573 K/ul 11/17/2017 Cbc With Differential Ord2 Baso% 0.6 % 11/17/2017 Cbc With Differential Ord2 RDW 12.9 % 11/17/2017 Cbc With Differential Ord2 Neut ABS# 6.05 K/ul 11/17/2017 Cbc With Differential Ord2 Lymph ABS# 1.54 K/ul 11/17/2017 Cbc With Differential Ord2 [place] ABS# 1.0 K/ul 11/17/2017 Cbc With Differential Ord2 Eos ABS# 0.1 K/ul 11/17/2017 Cbc With Differential Ord2 Baso ABS# 0.1 K/ul 11/17/2017 Comp Metabolic Tqo789 NA 131 mEq/L 11/17/2017 Comp Metabolic Agj099 K 4.6 mEq/L 11/17/2017 Comp Metabolic Fgz403 CL 96 mEq/L 11/17/2017 Comp Metabolic Yhr678 CO2 26.0 mEq/L 11/17/2017 Comp Metabolic Aow023 ANION GAP 14 11/17/2017 Comp Metabolic Any950 GLUCOSE 110 mg/dL 11/17/2017 Comp Metabolic Sxw462 Creat 0.6 mg/dL 11/17/2017 Comp Metabolic Hmr880 eGFR 104 ml/min/1.73m2 11/17/2017 Comp Metabolic Qyf568 BUN 14 mg/dL 11/17/2017 Comp Metabolic Yzc712 B/C Ratio 23.3 Ratio 11/17/2017 Comp Metabolic Abc751 CALCIUM 9.6 mg/dL 11/17/2017 Comp Metabolic Qsg804 ALK PHOS 232 U/L 11/17/2017 Comp Metabolic Ovl212 AST(SGOT) 10 U/L 11/17/2017 Comp Metabolic Zxf432 ALT(SGPT) 23 U/L 11/17/2017 Comp Metabolic Uif173 BILI T 0.5 mg/dL 11/17/2017 Comp Metabolic Uua387 ALBUMIN 4.1 g/dL 11/17/2017 Comp Metabolic Rox440 TPRO 6.5 g/dL 11/17/2017 Comp Metabolic Jzx722 GLOB 2.4 g/dL 11/17/2017 Comp Metabolic Kjp247 A/G Ratio 1.8 Ratio 11/17/2017 Comp Metabolic Mbq219 Osmo 264 mOsmo 11/17/2017 Review of Systems System Result Effective Dates Constitutional recent illness 10/09/2018 Constitutional No anorexia 10/09/2018 Constitutional No night sweats 2018 Constitutional No chills 10/09/2018 Constitutional No diaphoresis 10/09/2018 Constitutional No fatigue 10/09/2018 Constitutional No fever 10/09/2018 Constitutional No insomnia 10/09/2018 Constitutional No malaise 10/09/2018 Constitutional No weight loss 10/09/2018 Constitutional No weight gain 10/09/2018 Eyes No eye discharge 10/09/2018 Eyes No eye erythema 10/09/2018 Ears/Nose/Throat/Neck nasal allergies Ears/Nose/Throat/Neck nasal discharge Ears/Nose/Throat/Neck No otalgia 2018 Ears/Nose/Throat/Neck sinus congestion Ears/Nose/Throat/Neck No sore throat Cardiovascular No chest pain/pressure Respiratory No cough 10/09/2018 Gastrointestinal No vomiting 10/09/2018 Gastrointestinal No anorexia 10/09/2018 Gastrointestinal No diarrhea 10/09/2018 Gastrointestinal No constipation 2018 Gastrointestinal No abdominal pain 2018 Genitourinary/Nephrology No dysuria 10/09 Musculoskeletal back pain 10/09/2018 Dermatologic No rash 10/09/2018 Neurologic No alteration of consciousness 10/09/2018 Psychiatric No depression 10/09/2018 Endocrine No dry or coarse skin 2018 Hematologic/Lymphatic No abnormal bleeding and bruising 10/09/2018 Musculoskeletal back pain 04/12/2018 Musculoskeletal shoulder pain 04/12/2018 Ears/Nose/Throat/Neck No dental pain Ears/Nose/Throat/Neck No dizziness 2017 Ears/Nose/Throat/Neck No dysphagia 2017 Ears/Nose/Throat/Neck No headache 2017 Ears/Nose/Throat/Neck No hearing loss Ears/Nose/Throat/Neck No nasal allergies 04/12/2018 Ears/Nose/Throat/Neck No nasal discharge 04/12/2018 Ears/Nose/Throat/Neck No postnasal drip 04/12/2018 Ears/Nose/Throat/Neck No sinus congestion 04/12/2018 Ears/Nose/Throat/Neck No sore throat Ears/Nose/Throat/Neck cerumen 04/12/2018 Constitutional No recent illness 2017 Constitutional No anorexia 04/12/2018 Constitutional No night sweats 2017 Constitutional No chills 04/12/2018 Constitutional No diaphoresis 04/12/2018 Constitutional No fatigue 04/12/2018 Constitutional No fever 04/12/2018 Constitutional No insomnia 04/12/2018 Constitutional No malaise 04/12/2018 Constitutional No weight loss 04/12/2018 Constitutional No weight gain 04/12/2018 Eyes No eye discharge 04/12/2018 Eyes No eye erythema 04/12/2018 Cardiovascular No chest pain/pressure Cardiovascular No dyspnea 04/12/2018 Cardiovascular No edema 04/12/2018 Cardiovascular hypertension 04/12/2018 Respiratory No cough 04/12/2018 Gastrointestinal No abdominal pain 2017 Gastrointestinal No constipation 2017 Gastrointestinal No diarrhea 04/12/2018 Genitourinary/Nephrology No dysuria 04/12 Dermatologic No rash 04/12/2018 Neurologic No alteration of consciousness 04/12/2018 Psychiatric No depression 04/12/2018 Endocrine No dry or coarse skin 2017 Constitutional No recent illness 2017 Constitutional No anorexia 01/09/2018 Constitutional No night sweats 2017 Constitutional No chills 01/09/2018 Constitutional No diaphoresis 01/09/2018 Constitutional No fatigue 01/09/2018 Constitutional No fever 01/09/2018 Constitutional insomnia 01/09/2018 Constitutional No malaise 01/09/2018 Constitutional No weight loss 01/09/2018 Constitutional No weight gain 01/09/2018 Eyes No eye discharge 01/09/2018 Eyes No eye erythema 01/09/2018 Ears/Nose/Throat/Neck No dizziness 2017 Ears/Nose/Throat/Neck No nasal discharge 01/09/2018 Cardiovascular No chest pain/pressure Cardiovascular No dyspnea 01/09/2018 Cardiovascular No edema 01/09/2018 Respiratory No cough 01/09/2018 Gastrointestinal No abdominal pain 2017 Gastrointestinal No constipation 2017 Gastrointestinal No diarrhea 01/09/2018 Genitourinary/Nephrology No dysuria 01/09 Musculoskeletal back pain 01/09/2018 Musculoskeletal shoulder pain 01/09/2018 Dermatologic No rash 01/09/2018 Neurologic No alteration of consciousness 01/09/2018 Psychiatric anxiety 01/09/2018 Endocrine No dry or coarse skin 2017 Constitutional No recent illness 2017 Constitutional No anorexia 12/08/2017 Constitutional No night sweats 2017 Constitutional No chills 12/08/2017 Constitutional No diaphoresis 12/08/2017 Constitutional fatigue 12/08/2017 Constitutional No fever 12/08/2017 Constitutional No insomnia 12/08/2017 Constitutional No malaise 12/08/2017 Constitutional No weight loss 12/08/2017 Constitutional No weight gain 12/08/2017 Eyes No eye discharge 12/08/2017 Eyes No eye erythema 12/08/2017 Ears/Nose/Throat/Neck No dizziness 2017 Ears/Nose/Throat/Neck No nasal discharge 12/08/2017 Cardiovascular No chest pain/pressure Cardiovascular No dyspnea 12/08/2017 Cardiovascular No edema 12/08/2017 Respiratory No cough 12/08/2017 Gastrointestinal No abdominal pain 2017 Gastrointestinal No constipation 2017 Gastrointestinal No diarrhea 12/08/2017 Genitourinary/Nephrology No dysuria 12/08 Musculoskeletal back pain 12/08/2017 Musculoskeletal sciatica 12/08/2017 Musculoskeletal shoulder pain 12/08/2017 Dermatologic No rash 12/08/2017 Neurologic No alteration of consciousness 12/08/2017 Psychiatric anxiety 12/08/2017 Endocrine No dry or coarse skin 2017 Constitutional No recent illness 2017 Constitutional No anorexia 11/28/2017 Constitutional No night sweats 2017 Constitutional No chills 11/28/2017 Constitutional No diaphoresis 11/28/2017 Constitutional fatigue 11/28/2017 Constitutional No fever 11/28/2017 Constitutional No insomnia 11/28/2017 Constitutional No malaise 11/28/2017 Constitutional No weight loss 11/28/2017 Constitutional No weight gain 11/28/2017 Eyes No eye discharge 11/28/2017 Eyes No eye erythema 11/28/2017 Ears/Nose/Throat/Neck No dizziness 2017 Ears/Nose/Throat/Neck No nasal discharge 11/28/2017 Cardiovascular No chest pain/pressure 02/2018 Cardiovascular No dyspnea 11/28/2017 Cardiovascular No edema 11/28/2017 Respiratory No cough 11/28/2017 Gastrointestinal No abdominal pain 2017 Gastrointestinal No constipation 2017 Gastrointestinal No diarrhea 11/28/2017 Genitourinary/Nephrology No dysuria 11/28 Musculoskeletal back pain 11/28/2017 Musculoskeletal sciatica 11/28/2017 Musculoskeletal shoulder pain 11/28/2017 Dermatologic No rash 11/28/2017 Neurologic No alteration of consciousness 11/28/2017 Psychiatric anxiety 11/28/2017 Endocrine No dry or coarse skin 2017 Constitutional No recent illness 2017 Constitutional No anorexia 11/17/2017 Constitutional No night sweats 2017 Constitutional No chills 11/17/2017 Constitutional No diaphoresis 11/17/2017 Constitutional fatigue 11/17/2017 Constitutional No insomnia 11/17/2017 Constitutional No fever 11/17/2017 Constitutional No malaise 11/17/2017 Constitutional No weight loss 11/17/2017 Constitutional No weight gain 11/17/2017 Eyes No eye discharge 11/17/2017 Eyes No eye erythema 11/17/2017 Ears/Nose/Throat/Neck No dizziness 2017 Ears/Nose/Throat/Neck No nasal discharge 11/17/2017 Cardiovascular No chest pain/pressure Cardiovascular No dyspnea 11/17/2017 Cardiovascular No edema 11/17/2017 Respiratory No cough 11/17/2017 Gastrointestinal No abdominal pain 2017 Gastrointestinal No diarrhea 11/17/2017 Gastrointestinal No constipation 2017 Musculoskeletal sciatica 11/17/2017 Musculoskeletal back pain 11/17/2017 Musculoskeletal shoulder pain 11/17/2017 Genitourinary/Nephrology No dysuria 11/17 Dermatologic No rash 11/17/2017 Neurologic No alteration of consciousness 11/17/2017 Psychiatric anxiety 11/17/2017 Endocrine No dry or coarse skin 2017 Physical Exam Exam Name System Name Item Name Status Result Effective Dates Notes Full Exam - General 1994 Constitutional general appearance Overall: well developed 10/09/2018 None Full Exam - General 1994 Constitutional general appearance Overall: in no acute distress 10/09/2018 None Full Exam - General 1994 Constitutional general appearance Overall: well nourished 10/09/2018 None Full Exam - General 1994 Eyes conjunctiva /eyelids Overall: conjunctiva clear 10/09/2018 None Full Exam - General 1994 Eyes pupils and irises Overall: pupils equal, round, reactive to light and accomodation 10/09/2018 None Full Exam - General 1994 Ears/Nose/Throat otoscopic exam Overall: external auditory canals clear 10/09/2018 None Full Exam - General 1994 Ears/Nose/Throat otoscopic exam Overall: tympanic membranes clear 10/09/2018 None Full Exam - General 1994 Ears/Nose/Throat oral cavity/pharynx/larynx Overall: oral mucosa clear 10/09/2018 None Full Exam - General 1994 Respiratory auscultation Overall: breath sounds clear bilaterally 10/09/2018 None Full Exam - General 1994 Respiratory respiratory effort/rhythm Overall: no retractions 10/09/2018 None Full Exam - General 1994 Respiratory respiratory effort/rhythm Overall: normal rate 10/09/2018 None Full Exam - General 1994 Cardiovascular extremities Overall: no clubbing 10/09/2018 None Full Exam - General 1994 Cardiovascular auscultation of heart Overall: regular rate 10/09/2018 None Full Exam - General 1994 Cardiovascular auscultation of heart Overall: normal heart sounds 10/09/2018 None Full Exam - General 1994 Cardiovascular auscultation of heart Overall: no murmurs 10/09/2018 None Full Exam - General 1994 Abdomen abdominal exam Overall: no tenderness 10/09/2018 None Full Exam - General 1994 Abdomen abdominal exam Overall: normal bowel sounds 10/09/2018 None Full Exam - General 1994 Lymphatic neck nodes Overall: anterior cervical chain benign 10/09/2018 None Full Exam - General 1994 Lymphatic neck nodes Overall: posterior cervical chain benign 10/09/2018 None Full Exam - General 1994 Musculoskeletal gait and station Overall: normal gait 10/09/2018 None Full Exam - General 1994 Musculoskeletal gait and station Overall: normal station 10/09/2018 None Full Exam - General 1994 Integument inspection of skin Overall: few scattered moles, no gross abnormalities 10/09/2018 None Full Exam - General 1994 Neurologic cranial nerves Overall: crainial nerves 2 - 12 grossly intact 10/09/2018 None Full Exam - General 1994 Psychiatric orientation/consciousness Overall: oriented to person, place and time 10/09/2018 None Full Exam - General 1994 Constitutional general appearance Overall: well developed 04/12/2018 None Full Exam - General 1994 Constitutional general appearance Overall: in no acute distress 04/12/2018 None Full Exam - General 1994 Constitutional general appearance Overall: well nourished 04/12/2018 None Full Exam - General 1994 Constitutional general appearance Assistive Device: cane 04/12/2018 None Full Exam - General 1994 Eyes conjunctiva /eyelids Overall: conjunctiva clear 04/12/2018 None Full Exam - General 1994 Eyes pupils and irises Overall: pupils equal, round, reactive to light and accomodation 04/12/2018 None Full Exam - General 1994 Ears/Nose/Throat otoscopic exam Overall: external auditory canals clear 04/12/2018 None Full Exam - General 1994 Ears/Nose/Throat otoscopic exam Overall: tympanic membranes clear 04/12/2018 None Full Exam - General 1994 Ears/Nose/Throat oral cavity/pharynx/larynx Overall: oral mucosa clear 04/12/2018 None Full Exam - General 1994 Respiratory auscultation Overall: breath sounds clear bilaterally 04/12/2018 None Full Exam - General 1994 Respiratory respiratory effort/rhythm Overall: no retractions 04/12/2018 None Full Exam - General 1994 Respiratory respiratory effort/rhythm Overall: normal rate 04/12/2018 None Full Exam - General 1994 Cardiovascular extremities Overall: no clubbing 04/12/2018 None Full Exam - General 1994 Cardiovascular auscultation of heart Overall: regular rate 04/12/2018 None Full Exam - General 1994 Cardiovascular auscultation of heart Overall: normal heart sounds 04/12/2018 None Full Exam - General 1994 Cardiovascular auscultation of heart Overall: no murmurs 04/12/2018 None Full Exam - General 1994 Abdomen abdominal exam Overall: no tenderness 04/12/2018 None Full Exam - General 1994 Abdomen abdominal exam Overall: normal bowel sounds 04/12/2018 None Full Exam - General 1994 Lymphatic neck nodes Overall: anterior cervical chain benign 04/12/2018 None Full Exam - General 1994 Lymphatic neck nodes Overall: posterior cervical chain benign 04/12/2018 None Full Exam - General 1994 Musculoskeletal upper extremity Palpation - shoulder: pain with resisted abduction 04/12/2018 None Full Exam - General 1994 Musculoskeletal upper extremity Palpation - shoulder: pain with resisted biceps flexion 04/12/2018 None Full Exam - General 1994 Musculoskeletal upper extremity Palpation - shoulder: pain with resisted internal rotation 04/12/2018 None Full Exam - General 1994 Musculoskeletal upper extremity Palpation - shoulder: pain with resisted external rotation 04/12/2018 None Full Exam - General 1994 Musculoskeletal upper extremity ROM - shoulder: decreased abduction 04/12/2018 None Full Exam - General 1994 Musculoskeletal upper extremity ROM - shoulder: pain with abduction 04/12/2018 None Full Exam - General 1994 Musculoskeletal upper extremity ROM - shoulder: decreased adduction 04/12/2018 None Full Exam - General 1994 Musculoskeletal upper extremity ROM - shoulder: pain with adduction 04/12/2018 None Full Exam - General 1994 Musculoskeletal gait and station Overall: normal gait 04/12/2018 None Full Exam - General 1994 Musculoskeletal gait and station Overall: normal station 04/12/2018 None Full Exam - General 1994 Integument inspection of skin Overall: few scattered moles, no gross abnormalities 04/12/2018 None Full Exam - General 1994 Neurologic cranial nerves Overall: crainial nerves 2 - 12 grossly intact 04/12/2018 None Full Exam - General 1994 Psychiatric orientation/consciousness Overall: oriented to person, place and time 04/12/2018 None Full Exam - General 1994 Musculoskeletal spine, ribs and pelvis Sacroiliac joints: tender right sacroiliac joint 04/12/2018 None Full Exam - General 1994 Constitutional general appearance Overall: well developed 01/09/2018 None Full Exam - General 1994 Constitutional general appearance Overall: in no acute distress 01/09/2018 None Full Exam - General 1994 Constitutional general appearance Overall: well nourished 01/09/2018 None Full Exam - General 1994 Constitutional general appearance Assistive Device: cane 01/09/2018 None Full Exam - General 1994 Eyes conjunctiva /eyelids Overall: conjunctiva clear 01/09/2018 None Full Exam - General 1994 Eyes pupils and irises Overall: pupils equal, round, reactive to light and accomodation 01/09/2018 None Full Exam - General 1994 Ears/Nose/Throat otoscopic exam Overall: external auditory canals clear 01/09/2018 None Full Exam - General 1994 Ears/Nose/Throat otoscopic exam Overall: tympanic membranes clear 01/09/2018 None Full Exam - General 1994 Ears/Nose/Throat oral cavity/pharynx/larynx Overall: oral mucosa clear 01/09/2018 None Full Exam - General 1994 Respiratory auscultation Overall: breath sounds clear bilaterally 01/09/2018 None Full Exam - General 1994 Respiratory respiratory effort/rhythm Overall: no retractions 01/09/2018 None Full Exam - General 1994 Respiratory respiratory effort/rhythm Overall: normal rate 01/09/2018 None Full Exam - General 1994 Cardiovascular extremities Overall: no clubbing 01/09/2018 None Full Exam - General 1994 Cardiovascular auscultation of heart Overall: regular rate 01/09/2018 None Full Exam - General 1994 Cardiovascular auscultation of heart Overall: normal heart sounds 01/09/2018 None Full Exam - General 1994 Cardiovascular auscultation of heart Overall: no murmurs 01/09/2018 None Full Exam - General 1994 Abdomen abdominal exam Overall: no tenderness 01/09/2018 None Full Exam - General 1994 Abdomen abdominal exam Overall: normal bowel sounds 01/09/2018 None Full Exam - General 1994 Lymphatic neck nodes Overall: anterior cervical chain benign 01/09/2018 None Full Exam - General 1994 Lymphatic neck nodes Overall: posterior cervical chain benign 01/09/2018 None Full Exam - General 1994 Musculoskeletal gait and station Overall: normal gait 01/09/2018 None Full Exam - General 1994 Musculoskeletal gait and station Overall: normal station 01/09/2018 None Full Exam - General 1994 Integument inspection of skin Overall: few scattered moles, no gross abnormalities 01/09/2018 None Full Exam - General 1994 Neurologic cranial nerves Overall: crainial nerves 2 - 12 grossly intact 01/09/2018 None Full Exam - General 1994 Psychiatric orientation/consciousness Overall: oriented to person, place and time 01/09/2018 None Full Exam - General 1994 Musculoskeletal upper extremity Palpation - shoulder: pain with resisted abduction 01/09/2018 None Full Exam - General 1994 Musculoskeletal upper extremity Palpation - shoulder: pain with resisted biceps flexion 01/09/2018 None Full Exam - General 1994 Musculoskeletal upper extremity Palpation - shoulder: pain with resisted internal rotation 01/09/2018 None Full Exam - General 1994 Musculoskeletal upper extremity Palpation - shoulder: pain with resisted external rotation 01/09/2018 None Full Exam - General 1994 Musculoskeletal upper extremity ROM - shoulder: decreased abduction 01/09/2018 None Full Exam - General 1994 Musculoskeletal upper extremity ROM - shoulder: pain with abduction 01/09/2018 None Full Exam - General 1994 Musculoskeletal upper extremity ROM - shoulder: decreased adduction 01/09/2018 None Full Exam - General 1994 Musculoskeletal upper extremity ROM - shoulder: pain with adduction 01/09/2018 None Full Exam - General 1994 Constitutional general appearance Overall: well developed 12/08/2017 None Full Exam - General 1994 Constitutional general appearance Overall: in no acute distress 12/08/2017 None Full Exam - General 1994 Constitutional general appearance Overall: well nourished 12/08/2017 None Full Exam - General 1994 Eyes conjunctiva /eyelids Overall: conjunctiva clear 12/08/2017 None Full Exam - General 1994 Eyes pupils and irises Overall: pupils equal, round, reactive to light and accomodation 12/08/2017 None Full Exam - General 1994 Ears/Nose/Throat otoscopic exam Overall: external auditory canals clear 12/08/2017 None Full Exam - General 1994 Ears/Nose/Throat otoscopic exam Overall: tympanic membranes clear 12/08/2017 None Full Exam - General 1994 Ears/Nose/Throat oral cavity/pharynx/larynx Overall: oral mucosa clear 12/08/2017 None Full Exam - General 1994 Respiratory auscultation Overall: breath sounds clear bilaterally 12/08/2017 None Full Exam - General 1994 Respiratory respiratory effort/rhythm Overall: no retractions 12/08/2017 None Full Exam - General 1994 Respiratory respiratory effort/rhythm Overall: normal rate 12/08/2017 None Full Exam - General 1994 Cardiovascular extremities Overall: no clubbing 12/08/2017 None Full Exam - General 1994 Cardiovascular auscultation of heart Overall: regular rate 12/08/2017 None Full Exam - General 1994 Cardiovascular auscultation of heart Overall: normal heart sounds 12/08/2017 None Full Exam - General 1994 Cardiovascular auscultation of heart Overall: no murmurs 12/08/2017 None Full Exam - General 1994 Abdomen abdominal exam Overall: no tenderness 12/08/2017 None Full Exam - General 1994 Abdomen abdominal exam Overall: normal bowel sounds 12/08/2017 None Full Exam - General 1994 Lymphatic neck nodes Overall: anterior cervical chain benign 12/08/2017 None Full Exam - General 1994 Lymphatic neck nodes Overall: posterior cervical chain benign 12/08/2017 None Full Exam - General 1994 Musculoskeletal gait and station Overall: normal gait 12/08/2017 None Full Exam - General 1994 Musculoskeletal gait and station Overall: normal station 12/08/2017 None Full Exam - General 1994 Integument inspection of skin Overall: few scattered moles, no gross abnormalities 12/08/2017 None Full Exam - General 1994 Neurologic cranial nerves Overall: crainial nerves 2 - 12 grossly intact 12/08/2017 None Full Exam - General 1994 Psychiatric orientation/consciousness Overall: oriented to person, place and time 12/08/2017 None Full Exam - General 1994 Constitutional general appearance Assistive Device: cane 12/08/2017 None Full Exam - General 1994 Constitutional general appearance Overall: well developed 11/28/2017 None Full Exam - General 1994 Constitutional general appearance Overall: in no acute distress 11/28/2017 None Full Exam - General 1994 Constitutional general appearance Overall: well nourished 11/28/2017 None Full Exam - General 1994 Eyes conjunctiva /eyelids Overall: conjunctiva clear 11/28/2017 None Full Exam - General 1994 Eyes pupils and irises Overall: pupils equal, round, reactive to light and accomodation 11/28/2017 None Full Exam - General 1994 Ears/Nose/Throat otoscopic exam Overall: external auditory canals clear 11/28/2017 None Full Exam - General 1994 Ears/Nose/Throat otoscopic exam Overall: tympanic membranes clear 11/28/2017 None Full Exam - General 1994 Ears/Nose/Throat oral cavity/pharynx/larynx Overall: oral mucosa clear 11/28/2017 None Full Exam - General 1994 Respiratory auscultation Overall: breath sounds clear bilaterally 11/28/2017 None Full Exam - General 1994 Respiratory respiratory effort/rhythm Overall: no retractions 11/28/2017 None Full Exam - General 1994 Respiratory respiratory effort/rhythm Overall: normal rate 11/28/2017 None Full Exam - General 1994 Cardiovascular extremities Overall: no clubbing 11/28/2017 None Full Exam - General 1994 Cardiovascular auscultation of heart Overall: regular rate 11/28/2017 None Full Exam - General 1994 Cardiovascular auscultation of heart Overall: normal heart sounds 11/28/2017 None Full Exam - General 1994 Cardiovascular auscultation of heart Overall: no murmurs 11/28/2017 None Full Exam - General 1994 Abdomen abdominal exam Overall: no tenderness 11/28/2017 None Full Exam - General 1994 Abdomen abdominal exam Overall: normal bowel sounds 11/28/2017 None Full Exam - General 1994 Lymphatic neck nodes Overall: anterior cervical chain benign 11/28/2017 None Full Exam - General 1994 Lymphatic neck nodes Overall: posterior cervical chain benign 11/28/2017 None Full Exam - General 1994 Musculoskeletal gait and station Overall: normal gait 11/28/2017 None Full Exam - General 1994 Musculoskeletal gait and station Overall: normal station 11/28/2017 None Full Exam - General 1994 Integument inspection of skin Overall: few scattered moles, no gross abnormalities 11/28/2017 None Full Exam - General 1994 Neurologic cranial nerves Overall: crainial nerves 2 - 12 grossly intact 11/28/2017 None Full Exam - General 1994 Psychiatric orientation/consciousness Overall: oriented to person, place and time 11/28/2017 None Full Exam - General 1994 Musculoskeletal upper extremity Palpation - shoulder: pain with resisted abduction 11/28/2017 None Full Exam - General 1994 Musculoskeletal upper extremity Palpation - shoulder: pain with resisted internal rotation 11/28/2017 None Full Exam - General 1994 Musculoskeletal upper extremity Palpation - shoulder: pain with resisted external rotation 11/28/2017 None Full Exam - General 1994 Musculoskeletal upper extremity ROM - shoulder: decreased abduction 11/28/2017 None Full Exam - General 1994 Musculoskeletal upper extremity ROM - shoulder: pain with abduction 11/28/2017 None Full Exam - General 1994 Musculoskeletal upper extremity ROM - shoulder: decreased adduction 11/28/2017 None Full Exam - General 1994 Musculoskeletal upper extremity ROM - shoulder: pain with adduction 11/28/2017 None Full Exam - General 1994 Musculoskeletal upper extremity ROM - shoulder: decreased external rotation 11/28/2017 None Full Exam - General 1994 Musculoskeletal upper extremity ROM - shoulder: pain with external rotation 11/28/2017 None Full Exam - General 1994 Constitutional general appearance Overall: well developed 11/17/2017 None Full Exam - General 1994 Constitutional general appearance Overall: in no acute distress 11/17/2017 None Full Exam - General 1994 Constitutional general appearance Overall: well nourished 11/17/2017 None Full Exam - General 1994 Psychiatric orientation/consciousness Overall: oriented to person, place and time 11/17/2017 None Full Exam - General 1994 Neurologic cranial nerves Overall: crainial nerves 2 - 12 grossly intact 11/17/2017 None Full Exam - General 1994 Integument inspection of skin Overall: few scattered moles, no gross abnormalities 11/17/2017 None Full Exam - General 1994 Musculoskeletal gait and station Overall: normal gait 11/17/2017 None Full Exam - General 1994 Musculoskeletal gait and station Overall: normal station 11/17/2017 None Full Exam - General 1994 Lymphatic neck nodes Overall: posterior cervical chain benign 11/17/2017 None Full Exam - General 1994 Lymphatic neck nodes Overall: anterior cervical chain benign 11/17/2017 None Full Exam - General 1994 Abdomen abdominal exam Overall: no tenderness 11/17/2017 None Full Exam - General 1994 Abdomen abdominal exam Overall: normal bowel sounds 11/17/2017 None Full Exam - General 1994 Cardiovascular auscultation of heart Overall: no murmurs 11/17/2017 None Full Exam - General 1994 Cardiovascular auscultation of heart Overall: normal heart sounds 11/17/2017 None Full Exam - General 1994 Cardiovascular auscultation of heart Overall: regular rate 11/17/2017 None Full Exam - General 1994 Cardiovascular extremities Overall: no clubbing 11/17/2017 None Full Exam - General 1994 Respiratory auscultation Overall: breath sounds clear bilaterally 11/17/2017 None Full Exam - General 1994 Respiratory respiratory effort/rhythm Overall: no retractions 11/17/2017 None Full Exam - General 1994 Respiratory respiratory effort/rhythm Overall: normal rate 11/17/2017 None Full Exam - General 1994 Ears/Nose/Throat otoscopic exam Overall: external auditory canals clear 11/17/2017 None Full Exam - General 1994 Ears/Nose/Throat otoscopic exam Overall: tympanic membranes clear 11/17/2017 None Full Exam - General 1994 Ears/Nose/Throat oral cavity/pharynx/larynx Overall: oral mucosa clear 11/17/2017 None Full Exam - General 1994 Eyes conjunctiva /eyelids Overall: conjunctiva clear 11/17/2017 None Full Exam - General 1994 Eyes pupils and irises Overall: pupils equal, round, reactive to light and accomodation 11/17/2017 None Procedures No Procedures data Vital Signs Date Vital 10/09/2018 Blood Pressure 1: 152/72 Code : 8480-6 BMI: 27.0 Code : 32548-6 Heart Rate 1 : 85 bpm Height: 4'10" SpO2: 98% Weight: 129 lbs 04/12/2018 Blood Pressure 1: 140/82 Code : 8480-6 BMI: 25.7 Code : 05662-1 Heart Rate 1 : 78 bpm Height: 4'10" SpO2: 96% Weight: 123 lbs 01/09/2018 Blood Pressure 1: 142/72 Code : 8480-6 BMI: 26.5 Code : 95715-3 Heart Rate 1 : 87 bpm Height: 4'10" SpO2: 98% Weight: 127 lbs 12/08/2017 Blood Pressure 1: 170/88 Code : 8480-6 Heart Rate 1: 92 bpm Height: 4'10" SpO2: 96% Weight: 11/29/2017 Blood Pressure 1: 142/76 Code : 8480-6 Heart Rate 1: 92 bpm 11/28/2017 Blood Pressure 1: 170/88 Code : 8480-6 BMI: 26.1 Code : 71003-5 Heart Rate 1 : 112 bpm Height: 4'10 " SpO2: 99% Weight: 125 lbs 11/17/2017 Blood Pressure 1: 168/100 Code: 8480-6 Blood Pressure 1: 166/88 Code: 8480-6 BMI: 26.1 Code: 80938-2 Heart Rate 1: 102 bpm Height: 4'10" SpO2: 97% Weight: 125 lbs Functional Status No Functional Status data History of Present Illness Symptom Name Status Result Effective Date Notes Quality acute 2018 None Quality improving None Quality primary hypertension 10/09/2018 None Onset and Resolution sudden in onset 10/09/2018 None Onset and Resolution ongoing 10/09/2018 None Onset of Symptom during adulthood 10/09/2018 None Blood Pressure Values patient checking blood pressure at home - did not bring in readings 2018 None Frequency of Episodes decreasing 10/09/2018 None Triggers no known associated factors 10/09/2018 None Alleviating Factors medication 10/09/2018 None Exacerbating Factors change in dietary habits 10/09/2018 None Exacerbating Factors stress 10/09/2018 None Pertinent Findings Denies dizziness 10/09/2018 None Pertinent Findings Denies dyspnea 10/09/2018 None Pertinent Findings Denies edema 10/09/2018 None Location lumbar-sacral spine 10/09/2018 None Quality intermittent 10/09/2018 None Onset and Resolution ongoing 10/09/2018 None Onset of Symptom _ months ago 10/09/2018September 10th - post fall after fx foot Frequency of Episodes daily 10/09/2018 None Pertinent Findings Denies extremity numbness 10/09/2018 None Pertinent Findings Denies extremity weakness 10/09/2018 None Pertinent Findings Denies sleep disturbance 10/09/2018 None Pertinent Findings Denies weakness 10/09/2018 None Onset and Resolution sudden in onset 10/09/2018 None Onset of Symptom 1 days ago 10/09/2018 None Triggers activity None Initial treatment physical therapy 10/09/2018 None Mechanism of injury unknown 10/09/2018 None Sports Participation not significant 10/09/2018 None Severity mild 2018 None hypertension Quality acute 04/12/2018 None hypertension Quality improving 04/12/2018 None hypertension Quality primary hypertension 04/12/2018 None hypertension Onset and Resolution sudden in onset 04/12/2018 None hypertension Onset and Resolution ongoing 04/12/2018 None hypertension Onset of Symptom during adulthood 04/12/2018 None hypertension Blood Pressure Values patient checking blood pressure at home - did not bring in readings 04/12/2018 None hypertension Frequency of Episodes decreasing 04/12/2018 None hypertension Triggers no known associated factors 04/12/2018 None hypertension Alleviating Factors medication 04/12/2018 None hypertension Exacerbating Factors change in dietary habits 04/12/2018 None hypertension Exacerbating Factors stress 04/12/2018 None hypertension Pertinent Findings Denies dizziness 04/12/2018 None hypertension Pertinent Findings Denies dyspnea 04/12/2018 None hypertension Pertinent Findings Denies edema 04/12/2018 None back pain Location lumbar-sacral spine 04/12/2018 None back pain Quality intermittent 04/12/2018 None back pain Onset and Resolution ongoing 04/12/2018 None back pain Onset of Symptom _ months ago 04/12/2018 September 30 - post fall after fx foot back pain Frequency of Episodes daily 04/12/2018 None back pain Pertinent Findings Denies extremity numbness 04/12/2018 None back pain Pertinent Findings Denies extremity weakness 04/12/2018 None back pain Pertinent Findings Denies sleep disturbance 04/12/2018 None back pain Pertinent Findings Denies weakness 04/12/2018 None hypertension Quality acute 01/09/2018 None hypertension Quality primary hypertension 01/09/2018 None hypertension Onset and Resolution sudden in onset 01/09/2018 None hypertension Onset and Resolution ongoing 01/09/2018 None hypertension Onset of Symptom during adulthood 01/09/2018 None hypertension Triggers no known associated factors 01/09/2018 None hypertension Exacerbating Factors stress 01/09/2018 None hypertension Pertinent Findings Denies dizziness 01/09/2018 None hypertension Pertinent Findings Denies dyspnea 01/09/2018 None hypertension Pertinent Findings Denies edema 01/09/2018 None hypertension Blood Pressure Values patient checking blood pressure at home - did not bring in readings 01/09/2018 None hypertension Alleviating Factors medication 01/09/2018 None hypertension Exacerbating Factors change in dietary habits 01/09/2018 None hypertension Quality improving 01/09/2018 None hypertension Frequency of Episodes decreasing 01/09/2018 None hypertension Quality acute 12/08/2017 None hypertension Quality primary hypertension 12/08/2017 None hypertension Onset and Resolution sudden in onset 12/08/2017 None hypertension Onset and Resolution ongoing 12/08/2017 None hypertension Onset of Symptom during adulthood 12/08/2017 None hypertension Blood Pressure Values not checking blood pressure at home 12/08/2017 None hypertension Severity severe 12/08/2017 None hypertension Frequency of Episodes unchanged 12/08/2017 None hypertension Triggers no known associated factors 12/08/2017 None hypertension Exacerbating Factors stress 12/08/2017 None hypertension Pertinent Findings anxiety 12/08/2017 None hypertension Pertinent Findings Denies dizziness 12/08/2017 None hypertension Pertinent Findings Denies dyspnea 12/08/2017 None hypertension Pertinent Findings Denies edema 12/08/2017 in her feet hypertension Pertinent Findings Denies decreased energy 12/08/2017 None hypertension Quality acute 11/28/2017 None hypertension Quality primary hypertension 11/28/2017 None hypertension Onset and Resolution sudden in onset 11/28/2017 None hypertension Onset and Resolution ongoing 11/28/2017 None hypertension Onset of Symptom during adulthood 11/28/2017 None hypertension Blood Pressure Values not checking blood pressure at home 11/28/2017 None hypertension Severity severe 11/28/2017 None hypertension Triggers no known associated factors 11/28/2017 None hypertension Pertinent Findings Denies dizziness 11/28/2017 None hypertension Pertinent Findings Denies dyspnea 11/28/2017 None hypertension Pertinent Findings edema 11/28/2017 in her feet hypertension Pertinent Findings anxiety 11/28/2017 None hypertension Exacerbating Factors stress 11/28/2017 None shoulder pain Location on both shoulders 11/28/2017 None shoulder pain Quality chronic 11/28/2017 None shoulder pain Onset and Resolution ongoing 11/28/2017 None shoulder pain Quality worsening 11/28/2017 None shoulder pain Exacerbating Factors position change 11/28/2017 None shoulder pain Exacerbating Factors activity 11/28/2017 None shoulder pain Exacerbating Factors lifting 11/28/2017 None hypertension Frequency of Episodes unchanged 11/28/2017 None hypertension Quality acute 11/17/2017 None hypertension Quality primary hypertension 11/17/2017 None hypertension Onset and Resolution sudden in onset 11/17/2017 None hypertension Onset and Resolution ongoing 11/17/2017 None hypertension Onset of Symptom during adulthood 11/17/2017 None hypertension Blood Pressure Values not checking blood pressure at home 11/17/2017 None hypertension Severity severe 11/17/2017 None hypertension Triggers no known associated factors 11/17/2017 None hypertension Pertinent Findings anxiety 11/17/2017 None hypertension Pertinent Findings Denies decreased energy 11/17/2017 None hypertension Pertinent Findings Denies dizziness 11/17/2017 None hypertension Pertinent Findings Denies dyspnea 11/17/2017 None hypertension Pertinent Findings Denies edema 11/17/2017 None hyponatremia Quality acute 11/17/2017 None hyponatremia Onset and Resolution sudden in onset 11/17/2017 None hyponatremia Onset of Symptom during adulthood 11/17/2017 None hyponatremia Severity moderate 11/17/2017 None hyponatremia Exacerbating Factors excessive water intake 11/17/2017 None hyponatremia Alleviating Factors restricting fluid intake 11/17/2017 None hyponatremia Triggers no known associated factors 11/17/2017 None hyponatremia Pertinent Findings Denies chills 11/17/2017 None hyponatremia Pertinent Findings muscle weakness 11/17/2017 None hyponatremia Pertinent Findings Denies pain 11/17/2017 None hyponatremia Pertinent Findings poor weight gain 11/17/2017 None Advance Directives No Advance Directive data Encounters Encounter Performer Location Codes Date ([id number]) [id number] EST. PATIENT, LEVEL IV Diagnosis: Essential (primary) hypertension[ICD10: I10] Diagnosis: Hypothyroidism, unspecified[ICD10: E03.9] Diagnosis: Mixed hyperlipidemia[ICD10: E78.2] Diagnosis: Nasal congestion[ICD10: R09.81] Jackelin Damon MD, [facility] CPT-4: 42771 10/09/2018 ([id number]) 57951 EST. PATIENT, LEVEL IV Diagnosis: Essential (primary) hypertension[ICD10: I10] Diagnosis: Mixed hyperlipidemia[ICD10: E78.2] Diagnosis: Pain in right shoulder[ICD10: M25.511] Diagnosis: Low back pain[ICD10: M54.5] Diagnosis: Hypothyroidism, unspecified[ICD10: E03.9] Jackelin Damon MD, [facility] CPT-4: 43047 04/12/2018 ([id number]) 31339 EST. PATIENT, LEVEL III Diagnosis: Essential (primary) hypertension[ICD10: I10] Diagnosis: Pain in right shoulder[ICD10: M25.511] Jackelin Damon MD, [facility] CPT-4: 51902 01/09/2018 ([id number]) 20554 EST. PATIENT, LEVEL III Diagnosis: Essential (primary) hypertension[ICD10: I10] Diagnosis: Hypo-osmolality and hyponatremia[ICD10: E87.1] Jackelin Damon MD, [facility] CPT-4: 49022 12/08/2017 ([id number]) Miscellaneous no charge Diagnosis: Essential (primary) hypertension[ICD10: I10] Jackelin Damon MD, [facility] CPT-4: 10244 11/29/2017 ([id number]) 97624 EST. PATIENT, LEVEL III Diagnosis: Essential (primary) hypertension[ICD10: I10] Jackelin Damon MD, [facility] CPT-4: 72424 11/28/2017 ([id number]) [id number] EST. PATIENT, LEVEL IV Diagnosis: Essential (primary) hypertension[ICD10: I10] Diagnosis: Hypo-osmolality and hyponatremia[ICD10: E87.1] Diagnosis: Mixed hyperlipidemia[ICD10: E78.2] Jackelin Damon MD, [facility] CPT-4: 68013 11/17/2017 Plan of Care Planned Activity Notes Codes Status Date Visit Plan: Hypertension - elevated today -monitor at home - continue with current medications, continue with no added salt diet. Pt has been encouraged to exercise daily. The pt has been advised to call the office if there are any acute concerns about change in blood pressure readings at home. Hypothyroidism - pt with chronic hypothyroidism, continue with current medication, will monitor pt to signs or symptoms of lack of adequate supplementation. Pt is to continue with current dose of medication unless directed otherwise. Check labs at regular intervals q 3 months or q 6 months based on previous levels of control. Hyperlipidemia - pt has been counseled about appropriate diet, exercise, and need for low fat food choices. I have discussed the need for the patient to take medications as prescribed. If the patient has negative side effects from the medication, they are to CALL the office and not abruptly discontinue the medication without discussion with a practitioner in the office. We will check labs in 3-6 months for follow up on the patient's chronic medical problem and to assure normal liver response to medications. Sinus congestion - recommended pt to use allergy medication as prescribed. Pt has been counseled as to the appropriate use of the medication. Pt to call if allergy symptoms are not controlled with the medication. If using nasal spray, instructions as follows: Nasal spray- use twice daily, one spray per nostril twice daily, after 30 minutes, rinse out nose with saline spray.. Use opposite hand per nostril to spray in the nasal steroid allergy spray. 10/09/2018 Patient Education: Patient Medication Summary Completed 10/09/2018 Patient Education: Cholesterol Management Completed 10/09/2018 Appointment: Jackelin Fisher WPtel: [address] [place], [place] [id number] (15 min) Moderate 09/25/2018 Visit Plan: Hypertension - well controlled - continue with current medications, continue with no added salt diet. Pt has been encouraged to exercise daily. The pt has been advised to call the office if there are any acute concerns about change in blood pressure readings at home. Hyperlipidemia - pt has been counseled about appropriate diet, exercise, and need for low fat food choices. I have discussed the need for the patient to take medications as prescribed. If the patient has negative side effects from the medication, they are to CALL the office and not abruptly discontinue the medication without discussion with a practitioner in the office. We will check labs in 3-6 months for follow up on the patient's chronic medical problem and to assure normal liver response to medications. Hypothyroidism - pt with chronic hypothyroidism, continue with current medication, will monitor pt to signs or symptoms of lack of adequate supplementation. Pt is to continue with current dose of medication unless directed otherwise. Check labs at regular intervals q 3 months or q 6 months based on previous levels of control. Low back pain -refer for PT Right shoulder pain -fell in September with decreased ROM -will xray right shoulder today 04/12/2018 Appointment: Jackelin Fishertel: [facility] [place] [address] (15 min) Moderate 04/12/2018 Patient Education: Patient Medication Summary Completed 04/12/2018 Patient Education: Cholesterol Management Completed 04/12/2018 Patient Education: Back Pain Completed 04/12/2018 Appointment: Jackelin Fishertel: [phone] [id number] (15 min) Moderate 01/12/2018 Visit Plan: Hypertension - well controlled - continue with current medications, continue with no added salt diet. Pt has been encouraged to exercise daily. The pt has been advised to call the office if there are any acute concerns about change in blood pressure readings at home. Right shoulder pain-recommend xray -patient receiving PT currently-wants to wait on xray until PT complete to see if symptoms improve-instructed patient to call if shoulder not improving and we can send an order for the xray 01/09/2018 Appointment: Jackelin Fishertel: [facility] (15 min) Moderate 01/09/2018 Patient Education: Patient Medication Summary Completed 01/09/2018 Visit Plan: Hypertension - uncontrolled - the patient's medications have been modified as documented in the visit note. The patient has been counseled to cut back on salt in diet for a no added salt diet, low fat diet, start an exercise program with low weight bearing exercises and higher aerobic activity for heart health. The patient is to check blood pressure readings as an outpatient and either fax, call, or email the readings to the office next week for practitioner to review. The pt is to call for acute concerns. Low sodium-check level 12/08/2017 Appointment: [id number] (15 min) Moderate 12/08/2017 Patient Education: Patient Medication Summary Completed 12/08/2017 Appointment: Nurse Visit 11/29/2017 Patient Education: Patient Medication Summary Completed 11/29/2017 Visit Plan: Hypertension - uncontrolled - the patient's medications have been modified as documented in the visit note. The patient has been counseled to cut back on salt in diet for a no added salt diet, low fat diet, start an exercise program with low weight bearing exercises and higher aerobic activity for heart health. The patient is to check blood pressure readings as an outpatient and either fax, call, or email the readings to the office next week for practitioner to review. The pt is to call for acute concerns. 11/28/2017 Appointment: [facility] Fisher [facility]el[phone] [facility] [id number] (15 min) Moderate 11/28/2017 Patient Education: Patient Medication Summary Completed 11/28/2017 Visit Plan: Hypertension - continue with current medications, continue with no added salt diet. Pt has been encouraged to exercise daily. The pt has been advised to call the office if there are any acute concerns about change in blood pressure readings at home. 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 Hypertension - uncontrolled - the patient's medications have been modified as documented in the visit note. The patient has been counseled to cut back on salt in diet for a no added salt diet, low fat diet, start an exercise program with low weight bearing exercises and higher aerobic activity for heart health. The patient is to check blood pressure readings as an outpatient and either fax , call, or email the readings to the office next week for practitioner to review. The pt is to call for acute concerns. PT for low back pain xray right shoulder check labs . Hypertension - well controlled - continue with current medications, continue with no added salt diet. Pt has been encouraged to exercise daily. The pt has been advised to call the office if there are any acute concerns about change in blood pressure readings at home. Hyperlipidemia - pt has been counseled about appropriate diet, exercise, and need for low fat food choices. I have discussed the need for the patient to take medications as prescribed. If the patient has negative side effects from the medication, they are to CALL the office and not abruptly discontinue the medication without discussion with a practitioner in the office. We will check labs in 3-6 months for follow up on the patient's chronic medical problem and to assure normal liver response to medications. Hypothyroidism - pt with chronic hypothyroidism, continue with current medication, will monitor pt to signs or symptoms of lack of adequate supplementation. Pt is to continue with current dose of medication unless directed otherwise. Check labs at regular intervals q 3 months or q 6 months based on previous levels of control. Low back pain -refer for PT Right shoulder pain -fell in September with decreased ROM -will xray right shoulder today . Hypertension - well controlled - continue with current medications, continue with no added salt diet. Pt has been encouraged to exercise daily. The pt has been advised to call the office if there are any acute concerns about change in blood pressure readings at home. Right shoulder pain-recommend xray -patient receiving PT currently-wants to wait on xray until PT complete to see if symptoms improve-instructed patient to call if shoulder not improving and we can send an order for the xray NASAL SALINE RINSES CLARITIN (LORATADINE), ZYRTEC (CETIRIZINE) OR RUTHY (FEXOFENADINE) CALL IF YOUR SINUS CONGESTION DOES NOT RESOLVE OR IF IT GETS WORSE . Hypertension - elevated today -monitor at home - continue with current medications, continue with no added salt diet. Pt has been encouraged to exercise daily. The pt has been advised to call the office if there are any acute concerns about change in blood pressure readings at home. Hypothyroidism - pt with chronic hypothyroidism, continue with current medication, will monitor pt to signs or symptoms of lack of adequate supplementation. Pt is to continue with current dose of medication unless directed otherwise. Check labs at regular intervals q 3 months or q 6 months based on previous levels of control. Hyperlipidemia - pt has been counseled about appropriate diet, exercise, and need for low fat food choices. I have discussed the need for the patient to take medications as prescribed. If the patient has negative side effects from the medication, they are to CALL the office and not abruptly discontinue the medication without discussion with a practitioner in the office. We will check labs in 3-6 months for follow up on the patient's chronic medical problem and to assure normal liver response to medications. Sinus congestion - recommended pt to use allergy medication as prescribed. Pt has been counseled as to the appropriate use of the medication. Pt to call if allergy symptoms are not controlled with the medication. If using nasal spray, instructions as follows: Nasal spray- use twice daily, one spray per nostril twice daily, after 30 minutes, rinse out nose with saline spray.. Use opposite hand per nostril to spray in the nasal steroid allergy spray. 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 Hypertension - continue with current medications, continue with no added salt diet. Pt has been encouraged to exercise daily. The pt has been advised to call the office if there are any acute concerns about change in blood pressure readings at home. Low sodium-check labs today Hyperlipidemia-check lipids-will restart statin INCREASE AMLODIPINE TO 1.5 PILLS DAILY . Hypertension - uncontrolled - the patient's medications have been modified as documented in the visit note. The patient has been counseled to cut back on salt in diet for a no added salt diet, low fat diet, start an exercise program with low weight bearing exercises and higher aerobic activity for heart health. The patient is to check blood pressure readings as an outpatient and either fax , call, or email the readings to the office next week for practitioner to review. The pt is to call for acute concerns. Low sodium-check level
--- OUTSIDE RECORDS SUMMARY | 2018-10-31 09:43 | XMS REPORT | CCD ---
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 Role Phone PP Unavailable CCM Unavailable Summary Purpose Interface Exchange Insurance Providers Payer name Policy type / Coverage type Covered democrat ID Effective Begin Date Effective End Date [employer] Medicare Part B [id number] Unknown [employer] Medicare Part B [id number] Unknown Family history Sister Diagnosis Age At [...] Unknown Retired 11/17/[address]: 5474712 Former smoker Quit in 200911/17/[address]: 206064775 Never drinks alcohol 11/17/2017 Allergies, Adverse Reactions, [...] Fill Instructions amlodipine 5 mg tablet RxNorm: 799978 TAKE 1 & 1/2 (ONE & ONE-HALF) TABLETS BY MOUTH ONCE DAILY 08/01/2018 No Stop Date Active lovastatin 10 mg tablet RxNorm: 760987 1 Tablet(s) PO daily 10/201706/20/2019 Active levothyroxine 75 mcg tablet RxNorm: 878341 1 Tablet(s) PO daily 04/13/2018 08/10/2018 Inactive levothyroxine 75 mcg tablet RxNorm: 145780 1 Tablet(s) PO daily 04/13/2018 04/12/2018 Inactive alprazolam 0.5 mg tablet RxNorm: 417991 1/2-1 Tablet(s) PO QDAY PRN 01/09/2018 No Stop Date Active amlodipine 5 mg tablet RxNorm: 567300 1.5 Tablet(s) PO daily 07/07/2018 Inactive dose change to 1.5 tab daily levothyroxine 88 mcg tablet RxNorm: 673872 1 Tablet(s) PO daily 12/08/2017 06/05/2018 Inactive amlodipine 5 mg tablet RxNorm: 986014 1.5 Tablet(s) PO daily 01/08/2018 Inactive dose change to 1.5 tab daily amlodipine 5 mg tablet RxNorm: 287839 1 Tablet(s) PO daily 04/201812/07/2017 Inactive d/c order for 10mg dose amlodipine 10 mg tablet RxNorm: 749271 1 Tablet(s) PO daily 02/201811/29/2017 Inactive aspirin 81 mg effervescent tablet RxNorm: 6371317 1 Tablet(s) PO daily No Start Date Active multivitamin with minerals capsule RxNorm: 1 Capsule(s) PO daily No Start Date Active Vitamin D3 1,000 unit tablet RxNorm: 997568 1 Tablet(s) PO daily No Start Date Active fish oil-dha-epa 1,200 mg-144 mg-216 mg capsule RxNorm: 1 Capsule(s) PO daily No Start Date Active lovastatin 10 mg tablet RxNorm: 961651 1 Tablet(s) PO daily No Start Date 06/25/2018 Inactive alprazolam 0.5 mg tablet RxNorm: 060031 1/2-1 Tablet(s) PO QDAY PRN No Start Date 01/08/2018 Inactive levothyroxine 88 mcg tablet RxNorm: 757321 1 Tablet(s) PO daily No Start Date 12/07/2017 Inactive gabapentin 100 mg capsule RxNorm: 393736 1 Capsule(s) PO QHS No Start Date 04/11/2018 Inactive amlodipine 5 mg tablet RxNorm: 627508 1 Tablet(s) PO daily No Start Date [...] Observation Code Item Item Code Result Date Tsh Ord6 TSH (3rd IS) 0.06 uIU/mL 04/12/2018 Free T4 Oet787 FREE T4 1.38 ng/dL 04/12/2018 Lipid Ord30 [...] 29.1 pg 04/12/2018 Cbc With Differential Ord2 Beckham% 11.0 % 04/12/2018 Cbc With Differential Ord2 [...] 1.30 K/ul 04/12/2018 Cbc With Differential Ord2 Beckham ABS# 0.6 K/ul 04/12/2018 Cbc With Differential Ord2 Eos ABS# 0.2 K/ul 04/12/2018 Cbc With Differential Ord2 Baso ABS# 0.0 K/ul 04/12/2018 Comp Metabolic Dni426 NA 141 mEq/L 04/12/2018 Comp Metabolic Xaf135 K 3.9 mEq/L 04/12/2018 Comp Metabolic Wlc652 CL 106 mEq/L 04/12/2018 Comp Metabolic Dtt018 CO2 28.0 mEq/L 04/12/2018 Comp Metabolic Asd002 ANION GAP 11 04/12/2018 Comp Metabolic Owm281 GLUCOSE 92 mg/dL 04/12/2018 Comp Metabolic Cnq592 Creat 0.7 mg/dL 04/12/2018 Comp Metabolic Kiv741 eGFR 95 ml/min/1.73m2 04/12/2018 Comp Metabolic Inn335 BUN 9 mg/dL 04/12/2018 Comp Metabolic Vmk770 B/C Ratio 13.8 Ratio 04/12/2018 Comp Metabolic Ohy316 CALCIUM 9.3 mg/dL 04/12/2018 Comp Metabolic Vnc948 ALK PHOS 93 U/L 04/12/2018 Comp Metabolic Ijw753 AST(SGOT) 14 U/L 04/12/2018 Comp Metabolic Nas665 ALT(SGPT) 14 U/L 04/12/2018 Comp Metabolic Gyt033 BILI T 0.4 mg/dL 04/12/2018 Comp Metabolic Kbw745 ALBUMIN 4.0 g/dL 04/12/2018 Comp Metabolic Cml093 TPRO 6.4 g/dL 04/12/2018 Comp Metabolic Cff898 GLOB 2.4 g/dL 04/12/2018 Comp Metabolic Nbu541 A/G Ratio 1.7 Ratio 04/12/2018 Comp Metabolic Gwz445 Osmo 280 mOsmo 04/12/2018 Comp Metabolic Ucs774 NA 139 mEq/L 12/08/2017 Comp Metabolic Bkz536 K 4.1 mEq/L 12/08/2017 Comp Metabolic Atc862 CL 103 mEq/L 12/08/2017 Comp Metabolic Opi950 CO2 28.0 mEq/L 12/08/2017 Comp Metabolic Uaw356 ANION GAP 12 12/08/2017 Comp Metabolic Eiz367 GLUCOSE 120 mg/dL 12/08/2017 Comp Metabolic Zwb983 Creat 0.7 mg/dL 12/08/2017 Comp Metabolic Wxn270 eGFR 90 ml/min/1.73m2 12/08/2017 Comp Metabolic Svq487 BUN 10 mg/dL 12/08/2017 Comp Metabolic Iap511 B/C Ratio 14.7 Ratio 12/08/2017 Comp Metabolic Hso165 CALCIUM 9.6 mg/dL 12/08/2017 Comp Metabolic Jde617 ALK PHOS 120 U/L 12/08/2017 Comp Metabolic Tet140 AST(SGOT) 11 U/L 12/08/2017 Comp Metabolic Ezh166 ALT(SGPT) 13 U/L 12/08/2017 Comp Metabolic Ubm957 BILI T 0.4 mg/dL 12/08/2017 Comp Metabolic Qfw384 ALBUMIN 4.0 g/dL 12/08/2017 Comp Metabolic Tiw321 TPRO 6.3 g/dL 12/08/2017 Comp Metabolic Rij098 GLOB 2.3 g/dL 12/08/2017 Comp Metabolic Drc838 A/G Ratio 1.7 Ratio 12/08/2017 Comp Metabolic Cmu667 Osmo 278 mOsmo 12/08/2017 Lipid Ord30 CHOL [...] 29.8 pg 11/17/2017 Cbc With Differential Ord2 Beckham% 11.8 % 11/17/2017 Cbc With Differential Ord2 [...] 1.54 K/ul 11/17/2017 Cbc With Differential Ord2 Beckham ABS# 1.0 K/ul 11/17/2017 Cbc With Differential Ord2 Eos ABS# 0.1 K/ul 11/17/2017 Cbc With Differential Ord2 Baso ABS# 0.1 K/ul 11/17/2017 Comp Metabolic Gbo580 NA 131 mEq/L 11/17/2017 Comp Metabolic Ejm935 K 4.6 mEq/L 11/17/2017 Comp Metabolic Pec552 CL 96 mEq/L 11/17/2017 Comp Metabolic Yae405 CO2 26.0 mEq/L 11/17/2017 Comp Metabolic Cpz450 ANION GAP 14 11/17/2017 Comp Metabolic Lpr858 GLUCOSE 110 mg/dL 11/17/2017 Comp Metabolic Cnj653 Creat 0.6 mg/dL 11/17/2017 Comp Metabolic Vul505 eGFR 104 ml/min/1.73m2 11/17/2017 Comp Metabolic Ifn927 BUN 14 mg/dL 11/17/2017 Comp Metabolic Pyg962 B/C Ratio 23.3 Ratio 11/17/2017 Comp Metabolic Crh478 CALCIUM 9.6 mg/dL 11/17/2017 Comp Metabolic Yvr804 ALK PHOS 232 U/L 11/17/2017 Comp Metabolic Xoi268 AST(SGOT) 10 U/L 11/17/2017 Comp Metabolic Rpe222 ALT(SGPT) 23 U/L 11/17/2017 Comp Metabolic Yoz517 BILI T 0.5 mg/dL 11/17/2017 Comp Metabolic Bai193 ALBUMIN 4.1 g/dL 11/17/2017 Comp Metabolic Ral546 TPRO 6.5 g/dL 11/17/2017 Comp Metabolic Sqg258 GLOB 2.4 g/dL 11/17/2017 Comp Metabolic Cbt607 A/G Ratio 1.8 Ratio 11/17/2017 Comp Metabolic Eqm660 Osmo 264 mOsmo 11/17/2017 Review of Systems [...] Code : 8480-6 BMI: 27.0 Code : 77367-7 Heart Rate 1 : 85 bpm Height: 4'10" SpO2: 98% Weight: 129 lbs 04/12/2018 Blood Pressure 1: 140/82 Code : 8480-6 BMI: 25.7 Code : 40037-6 Heart Rate 1 : 78 bpm Height: 4'10" SpO2: 96% Weight: 123 lbs 01/09/2018 Blood Pressure 1: 142/72 Code : 8480-6 BMI: 26.5 Code : 20120-3 Heart Rate 1 : 87 bpm Height: 4'10" SpO2: 98% Weight: 127 lbs 12/08/2017 Blood Pressure 1: 170/88 Code : 8480-6 Heart Rate 1: 92 bpm Height: 4'10" SpO2: 96% Weight: 11/29/2017 Blood Pressure 1: 142/76 Code : 8480-6 Heart Rate 1: 92 bpm 11/28/2017 Blood Pressure 1: 170/88 Code : 8480-6 BMI: 26.1 Code : 99541-2 Heart Rate 1 : 112 bpm Height: 4'10 " SpO2: 99% Weight: 125 lbs 11/17/2017 Blood Pressure 1: 168/100 Code: 8480-6 Blood Pressure 1: 166/88 Code: 8480-6 BMI: 26.1 Code: 84409-8 Heart Rate 1: 102 bpm Height: 4'10" [...] None Onset of Symptom _ months ago 10/09/2018 September 30 - post fall after fx foot Frequency [...] data Encounters Encounter Performer Location Codes Date EST. PATIENT, LEVEL IV Diagnosis: Essential (primary) hypertension[ICD10: I10] Diagnosis: Hypothyroidism, unspecified[ICD10: E03.9] Diagnosis: Mixed hyperlipidemia[ICD10: E78.2] Diagnosis: Nasal congestion[ICD10: R09.81] Jackelin Damon MD, [facility] CPT-4: 22356 10/09/2018 [id number]) [id number] EST. PATIENT, LEVEL IV Diagnosis: Essential (primary) hypertension[ICD10: I10] Diagnosis: Mixed hyperlipidemia[ICD10: E78.2] Diagnosis: Pain in right shoulder[ICD10: M25.511] Diagnosis: Low back pain[ICD10: M54.5] Diagnosis: Hypothyroidism, unspecified[ICD10: E03.9] Jackelin Damon MD, [facility] CPT-4: 55044 04/12/2018 [id number]) [id number] EST. PATIENT, LEVEL III Diagnosis: Essential (primary) hypertension[ICD10: I10] Diagnosis: Pain in right shoulder[ICD10: M25.511] Jackelin Damon MD, [facility] CPT-4: 21540 01/09/2018 ([id number]) [id number] EST. PATIENT, LEVEL III Diagnosis: Essential (primary) hypertension[ICD10: I10] Diagnosis: Hypo-osmolality and hyponatremia[ICD10: E87.1] Jackelin Damon MD, [facility] CPT-4: 47460 12/08/2017 ([id number]) Miscellaneous no charge Diagnosis: Essential (primary) hypertension[ICD10: I10] Jackelin Damon MD, [facility] CPT-4: 16480 11/29/2017 ([id number]) [id number] EST. PATIENT, LEVEL III Diagnosis: Essential (primary) hypertension[ICD10: I10] Jackelin Damon MD, [facility] CPT-4: 97070 11/28/2017 ([id number]) 79522 EST. PATIENT, LEVEL IV Diagnosis: Essential (primary) hypertension[ICD10: I10] Diagnosis: Hypo-osmolality and hyponatremia[ICD10: E87.1] Diagnosis: Mixed hyperlipidemia[ICD10: E78.2] Jackelin Damon MD, [facility] CPT-4: 28077 11/17/2017 Plan of Care Planned Activity Notes [...] 10/09/2018 Patient Education: Cholesterol Management Completed 10/09/2018 Care Plan: Comp Metabolic Pending 10/09/2018 Care Plan: Cbc With Differential Pending 10/09/2018 Care Plan: Tsh Pending 10/09/2018 Care Plan: Lipid Pending 10/09/2018 Care Plan: Free T4 Pending 10/09/2018 Appointment: Jackelin Fisher WPtel: [phone] (15 min) Moderate 09/25/2018 Visit Plan: Hypertension [...] xray right shoulder today 04/12/2018 Appointment: Jackelin Fisher WPtel: [phone] [phone] (15 min) Moderate 04/12/2018 Patient Education: Patient Medication Summary Completed 04/12/2018 Patient Education: Cholesterol Management Completed 04/12/2018 Patient Education: Back Pain Completed 04/12/2018 Appointment: Jackelin Fisher WPtel: [phone] [phone] (15 min) Moderate 01/12/2018 Visit Plan: Hypertension [...] order for the xray 01/09/2018 Appointment: Jackelin Fisher WPtel: [phone] [phone] (15 min) Moderate 01/09/2018 Patient Education: Patient [...] concerns. Low sodium-check level 12/08/2017 Appointment: Jackelin Fisher WPtel: [phone] [phone] (15 min) Moderate 12/08/2017 Patient Education: Patient [...] call for acute concerns. 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
--- OUTSIDE RECORDS SUMMARY | 2018-10-31 09:44 | XMS REPORT | CCD ---
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 Phone PP Unavailable CCM Unavailable Summary Purpose Interface Exchange Insurance Providers Payer name Policy type / Coverage type Covered democrat ID Effective Begin Date Effective End Date [employer] Medicare Part B [id number] Unknown [employer] Medicare Part B [id number] Unknown Family history Sister Diagnosis Age At [...] Unknown Retired 11/17/[address]: 8577040 Former smoker Quit in 200911/17/[address]: 084789704 Never drinks alcohol 11/17/2017 Allergies, Adverse Reactions, [...] Codes Condition Status Onset Date Resolved Date Hypothryroidism Unknown Active 04/12/2018 Unknown Essential (primary) hypertension ICD-9: 401.1 ICD-10: I10 Active 11/17/2017 Unknown Hypo-osmolality and hyponatremia ICD-9: 276.1 ICD-10: E87.1 Active 11/17/2017 Unknown Hypothyroidism, unspecified ICD-9: 244.9 ICD-10: E03.9 Active 04/12/2018 Unknown Low back pain ICD-9: 724.2 ICD-10: M54.5 Active 04/12/2018 Unknown Mixed hyperlipidemia ICD-9: 272.2 ICD-10: E78.2 Active 11/17/2017 Unknown Pain in right shoulder ICD-9: 719.41 ICD-10: M25.511 Active 01/09/2018 Unknown Hyperlipidemia Unknown Active 11/17/2017 Unknown Hypertension Unknown Active 11/17/2017 Unknown Hypothyroid Unknown Active 11/17/2017 Unknown Problems Condition Codes Effective Dates Condition Status Hypothryroidism Unknown 04/12/2018 Active Essential (primary) hypertension ICD-9: 401.1 ICD-10: I10 11/17/2017 Active Hypo-osmolality and hyponatremia ICD-9: 276.1 ICD-10: E87.1 11/17/2017 Active Hypothyroidism, unspecified ICD-9: 244.9 ICD-10: E03.9 04/12/2018 Active Low back pain ICD-9: 724.2 ICD-10: M54.5 04/12/2018 Active Mixed hyperlipidemia ICD-9: 272.2 ICD-10: E78.2 11/17/2017 Active Pain in right shoulder ICD-9: 719.41 ICD-10: M25.511 01/09/2018 Active Hyperlipidemia Unknown 11/17/2017 Active Hypertension Unknown 11/17/2017 Active Hypothyroid Unknown 11/17/2017 Active Medications Medication Codes Instructions Start Date Stop Date Status Fill Instructions amlodipine 5 mg tablet RxNorm: 386675 TAKE 1 & 1/2 (ONE & ONE-HALF) TABLETS BY MOUTH ONCE DAILY 08/01/2018 No Stop Date Active lovastatin 10 mg tablet RxNorm: 811807 1 Tablet(s) PO daily 10/201706/20/2019 Active levothyroxine 75 mcg tablet RxNorm: 652863 1 Tablet(s) PO daily 04/13/2018 08/10/2018 Active levothyroxine 75 mcg tablet RxNorm: 415781 1 Tablet(s) PO daily 04/13/2018 04/12/2018 Inactive alprazolam 0.5 mg tablet RxNorm: 778918 1/2-1 Tablet(s) PO QDAY PRN 01/09/2018 No Stop Date Active amlodipine 5 mg tablet RxNorm: 880075 1.5 Tablet(s) PO daily 07/07/2018 Inactive dose change to 1.5 tab daily levothyroxine 88 mcg tablet RxNorm: 460930 1 Tablet(s) PO daily 12/08/2017 06/05/2018 Inactive amlodipine 5 mg tablet RxNorm: 595394 1.5 Tablet(s) PO daily 01/08/2018 Inactive dose change to 1.5 tab daily amlodipine 5 mg tablet RxNorm: 002169 1 Tablet(s) PO daily 04/201812/07/2017 Inactive d/c order for 10mg dose amlodipine 10 mg tablet RxNorm: 709090 1 Tablet(s) PO daily 02/201811/29/2017 Inactive aspirin 81 mg effervescent tablet RxNorm: 5320044 1 Tablet(s) PO daily No Start Date Active multivitamin with minerals capsule RxNorm: 1 Capsule(s) PO daily No Start Date Active Vitamin D3 1,000 unit tablet RxNorm: 213628 1 Tablet(s) PO daily No Start Date Active fish oil-dha-epa 1,200 mg-144 mg-216 mg capsule RxNorm: 1 Capsule(s) PO daily No Start Date Active lovastatin 10 mg tablet RxNorm: 602532 1 Tablet(s) PO daily No Start Date 06/25/2018 Inactive alprazolam 0.5 mg tablet RxNorm: 649361 1/2-1 Tablet(s) PO QDAY PRN No Start Date 01/08/2018 Inactive levothyroxine 88 mcg tablet RxNorm: 609850 1 Tablet(s) PO daily No Start Date 12/07/2017 Inactive gabapentin 100 mg capsule RxNorm: 486364 1 Capsule(s) PO QHS No Start Date 04/11/2018 Inactive amlodipine 5 mg tablet RxNorm: 014819 1 Tablet(s) PO daily No Start Date 11/27/2017 Inactive Medication Administered No Medication Administered data Immunizations Vaccine Codes Date Status Influenza CVX: 141 03/24/2017 completed Pneumococcal CVX: 33 01/22/2016 completed Tetanus, Diptheria, Pertussis CVX: 113 completed Tetanus/Diptheria CVX: 113 01/22/1992 completed Assessments Condition Codes Effective Dates Mixed hyperlipidemia ICD-10: E78.2 ICD-9: 272.2 04/12/2018 Low back pain ICD-10: M54.5 ICD-9: 724.2 04/12/2018 Hypothyroidism, unspecified ICD-10: E03.9 ICD-9: 244.9 04/12/2018 Essential (primary) hypertension ICD-10: I10 ICD-9: 401.1 04/12/2018 Pain in right shoulder ICD-10: M25.511 ICD-9: 719.41 04/12/2018 Hypo-osmolality and hyponatremia ICD-10: E87.1 ICD-9: 276.1 12/08/2017 Reason For Visit Reason For Visit Effective Dates Notes hypertension 04/12/2018 hypertension 01/09/2018 hypertension 12/08/2017 hypertension 11/28/2017 hypertension 11/17/2017 Results Observation Observation Code Item Item Code Result Date Tsh Ord6 TSH (3rd IS) 0.06 uIU/mL 04/12/2018 Free T4 Cmz276 FREE T4 1.38 ng/dL 04/12/2018 Lipid Ord30 [...] 29.1 pg 04/12/2018 Cbc With Differential Ord2 [place]% 11.0 % 04/12/2018 Cbc With Differential Ord2 [...] 1.30 K/ul 04/12/2018 Cbc With Differential Ord2 [place] ABS# 0.6 K/ul 04/12/2018 Cbc With Differential Ord2 Eos ABS# 0.2 K/ul 04/12/2018 Cbc With Differential Ord2 Baso ABS# 0.0 K/ul 04/12/2018 Comp Metabolic Ggt213 NA 141 mEq/L 04/12/2018 Comp Metabolic Vaa194 K 3.9 mEq/L 04/12/2018 Comp Metabolic Oam020 CL 106 mEq/L 04/12/2018 Comp Metabolic Fub760 CO2 28.0 mEq/L 04/12/2018 Comp Metabolic Vrp746 ANION GAP 11 04/12/2018 Comp Metabolic Lyq836 GLUCOSE 92 mg/dL 04/12/2018 Comp Metabolic Tsf713 Creat 0.7 mg/dL 04/12/2018 Comp Metabolic Wnh967 eGFR 95 ml/min/1.73m2 04/12/2018 Comp Metabolic Ghc134 BUN 9 mg/dL 04/12/2018 Comp Metabolic Xus192 B/C Ratio 13.8 Ratio 04/12/2018 Comp Metabolic Cxj995 CALCIUM 9.3 mg/dL 04/12/2018 Comp Metabolic Lie643 ALK PHOS 93 U/L 04/12/2018 Comp Metabolic Npp076 AST(SGOT) 14 U/L 04/12/2018 Comp Metabolic Zox761 ALT(SGPT) 14 U/L 04/12/2018 Comp Metabolic Uya030 BILI T 0.4 mg/dL 04/12/2018 Comp Metabolic Mfm565 ALBUMIN 4.0 g/dL 04/12/2018 Comp Metabolic Nyu038 TPRO 6.4 g/dL 04/12/2018 Comp Metabolic Oqt032 GLOB 2.4 g/dL 04/12/2018 Comp Metabolic Ruf365 A/G Ratio 1.7 Ratio 04/12/2018 Comp Metabolic Lks717 Osmo 280 mOsmo 04/12/2018 Comp Metabolic Mvp950 NA 139 mEq/L 12/08/2017 Comp Metabolic Lby426 K 4.1 mEq/L 12/08/2017 Comp Metabolic Wbq627 CL 103 mEq/L 12/08/2017 Comp Metabolic Uci829 CO2 28.0 mEq/L 12/08/2017 Comp Metabolic Wdz491 ANION GAP 12 12/08/2017 Comp Metabolic Emh125 GLUCOSE 120 mg/dL 12/08/2017 Comp Metabolic Vbu837 Creat 0.7 mg/dL 12/08/2017 Comp Metabolic Ynq387 eGFR 90 ml/min/1.73m2 12/08/2017 Comp Metabolic Jvw746 BUN 10 mg/dL 12/08/2017 Comp Metabolic Tye606 B/C Ratio 14.7 Ratio 12/08/2017 Comp Metabolic Uvx664 CALCIUM 9.6 mg/dL 12/08/2017 Comp Metabolic Bfa597 ALK PHOS 120 U/L 12/08/2017 Comp Metabolic Qpq580 AST(SGOT) 11 U/L 12/08/2017 Comp Metabolic Ynh058 ALT(SGPT) 13 U/L 12/08/2017 Comp Metabolic Sii046 BILI T 0.4 mg/dL 12/08/2017 Comp Metabolic Sju903 ALBUMIN 4.0 g/dL 12/08/2017 Comp Metabolic Vxh984 TPRO 6.3 g/dL 12/08/2017 Comp Metabolic Yjt468 GLOB 2.3 g/dL 12/08/2017 Comp Metabolic Fdm504 A/G Ratio 1.7 Ratio 12/08/2017 Comp Metabolic Rpx698 Osmo 278 mOsmo 12/08/2017 Lipid Ord30 CHOL 207 mg/dL 11/17/2017 Lipid Ord30 HDL 48.0 mg/dl 11/17/2017 Lipid Ord30 TRIG 186 mg/dL 11/17/2017 Lipid Ord30 LDL 122 mg/dL 11/17/2017 Lipid Ord30 C/HDL 4.3 Ratio 11/17/2017 Cbc With Differential Ord2 WBC 8.79 K/ul 11/17/2017 Cbc With Differential Ord2 RBC 4.63 M/ul 11/17/2017 Cbc With Differential Ord2 HGB 13.8 g/dl 11/17/2017 Cbc With Differential Ord2 Neut% 68.8 % 11/17/2017 Cbc With Differential Ord2 HCT 40.6 % 11/17/2017 Cbc With Differential Ord2 Lymph% 17.5 % 11/17/2017 Cbc With Differential Ord2 MCV 87.7 fl 11/17/2017 Cbc With Differential Ord2 [place]% 11.8 % 11/17/2017 Cbc With Differential Ord2 MCH 29.8 pg 11/17/2017 Cbc With Differential Ord2 Eos% 1.3 % 11/17/2017 Cbc With Differential Ord2 MCHC 34.0 pg 11/17/2017 Cbc With Differential Ord2 PLT 573 K/ul 11/17/2017 Cbc With Differential Ord2 Baso% 0.6 % 11/17/2017 Cbc With Differential Ord2 Neut ABS# 6.05 K/ul 11/17/2017 Cbc With Differential Ord2 RDW 12.9 % 11/17/2017 Cbc With Differential Ord2 Lymph ABS# 1.54 K/ul 11/17/2017 Cbc With Differential Ord2 [place] ABS# 1.0 K/ul 11/17/2017 Cbc With Differential Ord2 Eos ABS# 0.1 K/ul 11/17/2017 Cbc With Differential Ord2 Baso ABS# 0.1 K/ul 11/17/2017 Comp Metabolic Ell900 NA 131 mEq/L 11/17/2017 Comp Metabolic Jsq581 K 4.6 mEq/L 11/17/2017 Comp Metabolic Npd504 CL 96 mEq/L 11/17/2017 Comp Metabolic Jyx968 CO2 26.0 mEq/L 11/17/2017 Comp Metabolic Zlc507 ANION GAP 14 11/17/2017 Comp Metabolic Hed918 GLUCOSE 110 mg/dL 11/17/2017 Comp Metabolic Lie310 Creat 0.6 mg/dL 11/17/2017 Comp Metabolic Oqi523 eGFR 104 ml/min/1.73m2 11/17/2017 Comp Metabolic Qjz290 BUN 14 mg/dL 11/17/2017 Comp Metabolic Zzj969 B/C Ratio 23.3 Ratio 11/17/2017 Comp Metabolic Nvz376 CALCIUM 9.6 mg/dL 11/17/2017 Comp Metabolic Axw169 ALK PHOS 232 U/L 11/17/2017 Comp Metabolic Nao034 AST(SGOT) 10 U/L 11/17/2017 Comp Metabolic Fyo461 ALT(SGPT) 23 U/L 11/17/2017 Comp Metabolic Otq628 BILI T 0.5 mg/dL 11/17/2017 Comp Metabolic Hlw565 ALBUMIN 4.1 g/dL 11/17/2017 Comp Metabolic Lig230 TPRO 6.5 g/dL 11/17/2017 Comp Metabolic Ffk123 GLOB 2.4 g/dL 11/17/2017 Comp Metabolic Icn856 A/G Ratio 1.8 Ratio 11/17/2017 Comp Metabolic Esv602 Osmo 264 mOsmo 11/17/2017 Review of Systems System Result Effective Dates Musculoskeletal back pain 04/12/2018 Musculoskeletal shoulder pain [...] No Procedures data Vital Signs Date Vital 04/12/2018 Blood Pressure 1: 140/82 Code : 8480-6 BMI: 25.7 Code : 08191-4 Heart Rate 1 : 78 bpm Height: 4'10" SpO2: 96% Weight: 123 lbs 01/09/2018 Blood Pressure 1: 142/72 Code : 8480-6 BMI: 26.5 Code : 82621-0 Heart Rate 1 : 87 bpm Height: 4'10" SpO2: 98% Weight: 127 lbs 12/08/2017 Blood Pressure 1: 170/88 Code : 8480-6 Heart Rate 1: 92 bpm Height: 4'10" SpO2: 96% Weight: 11/29/2017 Blood Pressure 1: 142/76 Code : 8480-6 Heart Rate 1: 92 bpm 11/28/2017 Blood Pressure 1: 170/88 Code : 8480-6 BMI: 26.1 Code : 15401-5 Heart Rate 1 : 112 bpm Height: 4'10 " SpO2: 99% Weight: 125 lbs 11/17/2017 Blood Pressure 1: 168/100 Code: 8480-6 Blood Pressure 1: 166/88 Code: 8480-6 BMI: 26.1 Code: 77972-3 Heart Rate 1: 102 bpm Height: 4'10" SpO2: 97% Weight: 125 lbs Functional Status No Functional Status data History of Present Illness Symptom Name Status Result Effective Date Notes hypertension Quality acute 04/12/2018 None hypertension Quality [...] data Encounters Encounter Performer Location Codes Date ([id number]) 24011 EST. PATIENT, LEVEL IV Diagnosis: Essential (primary) hypertension[ICD10: I10] Diagnosis: Mixed hyperlipidemia[ICD10: E78.2] Diagnosis: Pain in right shoulder[ICD10: M25.511] Diagnosis: Low back pain[ICD10: M54.5] Diagnosis: Hypothyroidism, unspecified[ICD10: E03.9] Jackelin Damon MD, [facility] CPT-4: 00319 04/12/2018 ([id number]) 08829 EST. PATIENT, LEVEL III Diagnosis: Essential (primary) hypertension[ICD10: I10] Diagnosis: Pain in right shoulder[ICD10: M25.511] Jackelin Damon MD, [facility] CPT-4: 26755 01/09/2018 ([id number]) 38514 EST. PATIENT, LEVEL III Diagnosis: Essential (primary) hypertension[ICD10: I10] Diagnosis: Hypo-osmolality and hyponatremia[ICD10: E87.1] Jackelin Damon MD, [facility] CPT-4: 84681 12/08/2017 ([id number]) Miscellaneous no charge Diagnosis: Essential (primary) hypertension[ICD10: I10] Jackelin Damon MD, [facility] CPT-4: 98465 11/29/2017 ([id number]) 20504 EST. PATIENT, LEVEL III Diagnosis: Essential (primary) hypertension[ICD10: I10] Jackelin Damon MD, [facility] CPT-4: 37921 11/28/2017 ([id number]) 97733 EST. PATIENT, LEVEL IV Diagnosis: Essential (primary) hypertension[ICD10: I10] Diagnosis: Hypo-osmolality and hyponatremia[ICD10: E87.1] Diagnosis: Mixed hyperlipidemia[ICD10: E78.2] Jackelin Damon MD, [facility] CPT-4: 45161 11/17/2017 Plan of Care Planned Activity Notes Codes Status Date Visit Plan: Hypertension - well controlled - [...] shoulder today 04/12/2018 Appointment: Jackelin Fisher WPtel: [facility]2 [phone] (15 min) Moderate 04/12/2018 Patient Education: Patient Medication Summary Completed 04/12/2018 Patient Education: Cholesterol Management Completed 04/12/2018 Patient Education: Back Pain Completed 04/12/2018 Appointment: Jackelin Fisher WPtel: [facility]3 [phone] [place] (15 min) Moderate 01/12/2018 Visit Plan: Hypertension [...] the xray 01/09/2018 Appointment: Jackelin Fisher WPtel: [phone] (15 min) Moderate 01/09/2018 Patient Education: [...] level 12/08/2017 Appointment: Jackelin Fisher WPtel: [phone] [phone] [place] (15 min) Moderate 12/08/2017 Patient Education: Patient [...] acute concerns. 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
--- OUTSIDE RECORDS SUMMARY | 2018-10-31 09:45 | XMS REPORT | CCD ---
Author Author Jackelin Fisher MD, [facility] Address [address] [place] [address] Phone Care Team Providers Care Dowel Pin Man Name Role Phone PP Unavailable CCM Unavailable Summary Purpose Interface Exchange Insurance Providers Payer name Policy type / Coverage type Covered alliance party ID Effective Begin Date Effective End Date [employer] Medicare Part B [id number] Unknown [employer] Medicare Part B [id number] Unknown Family history Sister Diagnosis Age At [...] Unknown Retired 11/17/[address]: 8991647 Former smoker Quit in 200911/17/[address]: 878861068 Never drinks alcohol 11/17/2017 Allergies, Adverse Reactions, [...] Start Date Stop Date Status Fill Instructions lovastatin 10 mg tablet RxNorm: 004387 1 Tablet(s) PO daily 10/201706/20/2019 Active levothyroxine 75 mcg tablet RxNorm: 966385 1 Tablet(s) PO daily 04/13/2018 08/10/2018 Active levothyroxine 75 mcg tablet RxNorm: 270270 1 Tablet(s) PO daily 04/13/2018 04/12/2018 Inactive amlodipine 5 mg tablet RxNorm: 256335 1.5 Tablet(s) PO daily 07/07/2018 Inactive dose change to 1.5 tab daily alprazolam 0.5 mg tablet RxNorm: 690091 1/2-1 Tablet(s) PO QDAY PRN 01/09/2018 07/17/2018 Inactive levothyroxine 88 mcg tablet RxNorm: 952937 1 Tablet(s) PO daily 12/08/2017 06/05/2018 Inactive amlodipine 5 mg tablet RxNorm: 408027 1.5 Tablet(s) PO daily 01/08/2018 Inactive dose change to 1.5 tab daily amlodipine 5 mg tablet RxNorm: 764555 1 Tablet(s) PO daily 04/201812/07/2017 Inactive d/c order for 10mg dose amlodipine 10 mg tablet RxNorm: 607460 1 Tablet(s) PO daily 02/201811/29/2017 Inactive aspirin 81 mg effervescent tablet RxNorm: 3673671 1 Tablet(s) PO daily No Start Date Active multivitamin with minerals capsule RxNorm: 1 Capsule(s) PO daily No Start Date Active Vitamin D3 1,000 unit tablet RxNorm: 732313 1 Tablet(s) PO daily No Start Date Active fish oil-dha-epa 1,200 mg-144 mg-216 mg capsule RxNorm: 1 Capsule(s) PO daily No Start Date Active lovastatin 10 mg tablet RxNorm: 434269 1 Tablet(s) PO daily No Start Date 06/25/2018 Inactive alprazolam 0.5 mg tablet RxNorm: 214133 1/2-1 Tablet(s) PO QDAY PRN No Start Date 01/08/2018 Inactive levothyroxine 88 mcg tablet RxNorm: 893454 1 Tablet(s) PO daily No Start Date 12/07/2017 Inactive gabapentin 100 mg capsule RxNorm: 787915 1 Capsule(s) PO QHS No Start Date 04/11/2018 Inactive amlodipine 5 mg tablet RxNorm: 069697 1 Tablet(s) PO daily No Start Date [...] (3rd IS) 0.06 uIU/mL 04/12/2018 Free T4 Kyf741 FREE T4 1.38 ng/dL 04/12/2018 Lipid Ord30 [...] 29.1 pg 04/12/2018 Cbc With Differential Ord2 [place]% 11.0 % 04/12/2018 Cbc With Differential Ord2 [...] 1.30 K/ul 04/12/2018 Cbc With Differential Ord2 [place] ABS# 0.6 K/ul 04/12/2018 Cbc With Differential Ord2 Eos ABS# 0.2 K/ul 04/12/2018 Cbc With Differential Ord2 Baso ABS# 0.0 K/ul 04/12/2018 Comp Metabolic Lcl354 NA 141 mEq/L 04/12/2018 Comp Metabolic Npd662 K 3.9 mEq/L 04/12/2018 Comp Metabolic Dcu961 CL 106 mEq/L 04/12/2018 Comp Metabolic Yem224 CO2 28.0 mEq/L 04/12/2018 Comp Metabolic Zdt287 ANION GAP 11 04/12/2018 Comp Metabolic Axn490 GLUCOSE 92 mg/dL 04/12/2018 Comp Metabolic Vtr045 Creat 0.7 mg/dL 04/12/2018 Comp Metabolic Vdc589 eGFR 95 ml/min/1.73m2 04/12/2018 Comp Metabolic Wib583 BUN 9 mg/dL 04/12/2018 Comp Metabolic Lbk118 B/C Ratio 13.8 Ratio 04/12/2018 Comp Metabolic Mbq144 CALCIUM 9.3 mg/dL 04/12/2018 Comp Metabolic Zor000 ALK PHOS 93 U/L 04/12/2018 Comp Metabolic Xzw486 AST(SGOT) 14 U/L 04/12/2018 Comp Metabolic Uns937 ALT(SGPT) 14 U/L 04/12/2018 Comp Metabolic Umf596 BILI T 0.4 mg/dL 04/12/2018 Comp Metabolic Zft628 ALBUMIN 4.0 g/dL 04/12/2018 Comp Metabolic Brf075 TPRO 6.4 g/dL 04/12/2018 Comp Metabolic Xfe479 GLOB 2.4 g/dL 04/12/2018 Comp Metabolic Wne125 A/G Ratio 1.7 Ratio 04/12/2018 Comp Metabolic Xhb806 Osmo 280 mOsmo 04/12/2018 Comp Metabolic Qzw156 NA 139 mEq/L 12/08/2017 Comp Metabolic Lgt737 K 4.1 mEq/L 12/08/2017 Comp Metabolic Rnm030 CL 103 mEq/L 12/08/2017 Comp Metabolic Tbh307 CO2 28.0 mEq/L 12/08/2017 Comp Metabolic Mub172 ANION GAP 12 12/08/2017 Comp Metabolic Yso454 GLUCOSE 120 mg/dL 12/08/2017 Comp Metabolic Cyz814 Creat 0.7 mg/dL 12/08/2017 Comp Metabolic Spo029 eGFR 90 ml/min/1.73m2 12/08/2017 Comp Metabolic Xhs577 BUN 10 mg/dL 12/08/2017 Comp Metabolic Jps667 B/C Ratio 14.7 Ratio 12/08/2017 Comp Metabolic Ngc592 CALCIUM 9.6 mg/dL 12/08/2017 Comp Metabolic Kwg622 ALK PHOS 120 U/L 12/08/2017 Comp Metabolic Zns555 AST(SGOT) 11 U/L 12/08/2017 Comp Metabolic Rin309 ALT(SGPT) 13 U/L 12/08/2017 Comp Metabolic Ihz566 BILI T 0.4 mg/dL 12/08/2017 Comp Metabolic Zax306 ALBUMIN 4.0 g/dL 12/08/2017 Comp Metabolic Zgk355 TPRO 6.3 g/dL 12/08/2017 Comp Metabolic Ufx272 GLOB 2.3 g/dL 12/08/2017 Comp Metabolic Dwx660 A/G Ratio 1.7 Ratio 12/08/2017 Comp Metabolic Mxh756 Osmo 278 mOsmo 12/08/2017 Lipid Ord30 CHOL [...] 87.7 fl 11/17/2017 Cbc With Differential Ord2 [place]% 11.8 % 11/17/2017 Cbc With Differential Ord2 [...] 1.54 K/ul 11/17/2017 Cbc With Differential Ord2 [place] ABS# 1.0 K/ul 11/17/2017 Cbc With Differential Ord2 Eos ABS# 0.1 K/ul 11/17/2017 Cbc With Differential Ord2 Baso ABS# 0.1 K/ul 11/17/2017 Comp Metabolic Iot440 NA 131 mEq/L 11/17/2017 Comp Metabolic Owm586 K 4.6 mEq/L 11/17/2017 Comp Metabolic Znp028 CL 96 mEq/L 11/17/2017 Comp Metabolic Mug820 CO2 26.0 mEq/L 11/17/2017 Comp Metabolic Ihr874 ANION GAP 14 11/17/2017 Comp Metabolic Omg659 GLUCOSE 110 mg/dL 11/17/2017 Comp Metabolic Rnx076 Creat 0.6 mg/dL 11/17/2017 Comp Metabolic Pqm981 eGFR 104 ml/min/1.73m2 11/17/2017 Comp Metabolic Uol940 BUN 14 mg/dL 11/17/2017 Comp Metabolic Bko893 B/C Ratio 23.3 Ratio 11/17/2017 Comp Metabolic Vls744 CALCIUM 9.6 mg/dL 11/17/2017 Comp Metabolic Jpt573 ALK PHOS 232 U/L 11/17/2017 Comp Metabolic Kom800 AST(SGOT) 10 U/L 11/17/2017 Comp Metabolic Pde440 ALT(SGPT) 23 U/L 11/17/2017 Comp Metabolic Wnc517 BILI T 0.5 mg/dL 11/17/2017 Comp Metabolic Dfd680 ALBUMIN 4.1 g/dL 11/17/2017 Comp Metabolic Fdh382 TPRO 6.5 g/dL 11/17/2017 Comp Metabolic Sjy275 GLOB 2.4 g/dL 11/17/2017 Comp Metabolic Oln905 A/G Ratio 1.8 Ratio 11/17/2017 Comp Metabolic Zbe636 Osmo 264 mOsmo 11/17/2017 Review of Systems [...] flexion 04/12/2018 None Full Exam - General 1995 Musculoskeletal upper extremity Palpation - shoulder: pain [...] Code : 8480-6 BMI: 25.7 Code : 87083-2 Heart Rate 1 : 78 bpm Height: 4'10" SpO2: 96% Weight: 123 lbs 01/09/2018 Blood Pressure 1: 142/72 Code : 8480-6 BMI: 26.5 Code : 73669-1 Heart Rate 1 : 87 bpm Height: 4'10" SpO2: 98% Weight: 127 lbs 12/08/2017 Blood Pressure 1: 170/88 Code : 8480-6 Heart Rate 1: 92 bpm Height: 4'10" SpO2: 96% Weight: 11/29/2017 Blood Pressure 1: 142/76 Code : 8480-6 Heart Rate 1: 92 bpm 11/28/2017 Blood Pressure 1: 170/88 Code : 8480-6 BMI: 26.1 Code : 59383-6 Heart Rate 1 : 112 bpm Height: 4'10 " SpO2: 99% Weight: 125 lbs 11/17/2017 Blood Pressure 1: 168/100 Code: 8480-6 Blood Pressure 1: 166/88 Code: 8480-6 BMI: 26.1 Code: 31393-6 Heart Rate 1: 102 bpm Height: 4'10" [...] data Encounters Encounter Performer Location Codes Date ([id number]) 52563 EST. PATIENT, LEVEL IV Diagnosis: Essential (primary) hypertension[ICD10: I10] Diagnosis: Mixed hyperlipidemia[ICD10: E78.2] Diagnosis: Pain in right shoulder[ICD10: M25.511] Diagnosis: Low back pain[ICD10: M54.5] Diagnosis: Hypothyroidism, unspecified[ICD10: E03.9] [facility] CPT-4: 13522 04/12/2018 ([id number]) 50748 EST. PATIENT, LEVEL III Diagnosis: Essential (primary) hypertension[ICD10: I10] Diagnosis: Pain in right shoulder[ICD10: M25.511] [facility] CPT-4: 37039 01/09/2018 ([id number]) 43686 EST. PATIENT, LEVEL III Diagnosis: Essential (primary) hypertension[ICD10: I10] Diagnosis: Hypo-osmolality and hyponatremia[ICD10: E87.1] Jackelin Damon MD, [facility] CPT-4: 77731 12/08/2017 ([id number]) Miscellaneous no charge Diagnosis: Essential (primary) hypertension[ICD10: I10] Jackelin Damon MD, [facility] CPT-4: 69647 11/29/2017 ([id number]) 15882 EST. PATIENT, LEVEL III Diagnosis: Essential (primary) hypertension[ICD10: I10] Jackelin Damon MD [facility] CPT-4: 82614 11/28/2017 ([id number]) 10210 EST. PATIENT, LEVEL IV Diagnosis: Essential (primary) hypertension[ICD10: I10] Diagnosis: Hypo-osmolality and hyponatremia[ICD10: E87.1] Diagnosis: Mixed hyperlipidemia[ICD10: E78.2] Jackelin Damon MD, [facility] CPT-4: 00238 11/17/2017 Plan of Care Planned Activity Notes [...] shoulder today 04/12/2018 Appointment: Jackelin Fisher WPtel: [phone] (15 min) Moderate 04/12/2018 Patient Education: Patient Medication Summary Completed 04/12/2018 Patient Education: Cholesterol Management Completed 04/12/2018 Patient Education: Back Pain Completed 04/12/2018 Appointment: Jackelin Fisher WPtel: [phone] (15 min) Moderate 01/12/2018 Visit Plan: [...] the xray 01/09/2018 App[facility]ment[phone] (15 min) Moderate 01/09/2018 Patient Education: Patient [...] level 12/08/2017 Appointment: Jackelin Fisher WPtel: [phone] [phone] (15 min) Moderate 12/08/2017 Patient Education: [...] concerns. 11/28/2017 Appointment: Jackelin Fisher WPtel: [phone] [phone] (15 min) Moderate 11/28/2017 Patient Education: Patient [...] restart statin 11/17/2017 [facility]ment: [phone] New Patient 11/17/2017 Patient Education: Patient Medication Summary Completed 11/17/2017 Instructions Comment INCREASE AMLODIPINE TO 10MG DAILY -TAKE 2 PILLS OF THE 5MG TABS UNTIL YOUR RUN OUT AND THEN MRI TECHNICIAN NEW PRESCRIPTION FOR 10MG 1 PILL DAILY [...]
--- OUTSIDE RECORDS SUMMARY | 2018-10-31 09:46 | XMS REPORT | CCD ---
Author Author Jackelin Fisher MD, [facility] Address [address] [place] [address] Phone Care Team Providers Care Airline Pilot/First Officer Name Role Phone PP Unavailable CCM Unavailable Summary Purpose Interface Exchange Insurance Providers Payer name Policy type / Coverage type Covered constitution party ID Effective Begin Date Effective End Date [employer] Medicare Part B [id number] 2018 Unknown [employer] Medicare Part B [id number] Unknown Family history Sister Diagnosis Age At [...] Unknown Retired 11/17/[address]: 1992517 Former smoker Quit in 200911/17/[address]: 520008412 Never drinks alcohol 11/17/2017 Allergies, Adverse Reactions, [...] Fill Instructions lovastatin 10 mg tablet RxNorm: 445859 1 Tablet(s) PO daily 10/201706/20/2019 Active levothyroxine 75 mcg tablet RxNorm: 471833 1 Tablet(s) PO daily 04/13/2018 08/10/2018 Active levothyroxine 75 mcg tablet RxNorm: 785610 1 Tablet(s) PO daily 04/13/2018 04/12/2018 Inactive alprazolam 0.5 mg tablet RxNorm: 233377 1/2-1 Tablet(s) PO QDAY PRN 01/09/2018 No Stop Date Active amlodipine 5 mg tablet RxNorm: 759874 1.5 Tablet(s) PO daily 07/07/2018 Active dose change to 1.5 tab daily levothyroxine 88 mcg tablet RxNorm: 689547 1 Tablet(s) PO daily 12/08/2017 06/05/2018 Inactive amlodipine 5 mg tablet RxNorm: 419827 1.5 Tablet(s) PO daily 01/08/2018 Inactive dose change to 1.5 tab daily amlodipine 5 mg tablet RxNorm: 782512 1 Tablet(s) PO daily 04/201812/07/2017 Inactive d/c order for 10mg dose amlodipine 10 mg tablet RxNorm: 819451 1 Tablet(s) PO daily 02/201811/29/2017 Inactive aspirin 81 mg effervescent tablet RxNorm: 6988363 1 Tablet(s) PO daily No Start Date Active multivitamin with minerals capsule RxNorm: 1 Capsule(s) PO daily No Start Date Active Vitamin D3 1,000 unit tablet RxNorm: 712219 1 Tablet(s) PO daily No Start Date Active fish oil-dha-epa 1,200 mg-144 mg-216 mg capsule RxNorm: 1 Capsule(s) PO daily No Start Date Active lovastatin 10 mg tablet RxNorm: 386305 1 Tablet(s) PO daily No Start Date 06/25/2018 Inactive alprazolam 0.5 mg tablet RxNorm: 676634 1/2-1 Tablet(s) PO QDAY PRN No Start Date 01/08/2018 Inactive levothyroxine 88 mcg tablet RxNorm: 612773 1 Tablet(s) PO daily No Start Date 12/07/2017 Inactive gabapentin 100 mg capsule RxNorm: 010558 1 Capsule(s) PO QHS No Start Date 04/11/2018 Inactive amlodipine 5 mg tablet RxNorm: 485995 1 Tablet(s) PO daily No Start Date [...] (3rd IS) 0.06 uIU/mL 04/12/2018 Free T4 Dzw582 FREE T4 1.38 ng/dL 04/12/2018 Lipid Ord30 [...] 29.1 pg 04/12/2018 Cbc With Differential Ord2 Calloway% 11.0 % 04/12/2018 Cbc With Differential Ord2 [...] 1.30 K/ul 04/12/2018 Cbc With Differential Ord2 Calloway ABS# 0.6 K/ul 04/12/2018 Cbc With Differential Ord2 Eos ABS# 0.2 K/ul 04/12/2018 Cbc With Differential Ord2 Baso ABS# 0.0 K/ul 04/12/2018 Comp Metabolic Aui678 NA 141 mEq/L 04/12/2018 Comp Metabolic Fnt122 K 3.9 mEq/L 04/12/2018 Comp Metabolic Puy767 CL 106 mEq/L 04/12/2018 Comp Metabolic Fuc080 CO2 28.0 mEq/L 04/12/2018 Comp Metabolic Jjq940 ANION GAP 11 04/12/2018 Comp Metabolic Mkz387 GLUCOSE 92 mg/dL 04/12/2018 Comp Metabolic Zbt233 Creat 0.7 mg/dL 04/12/2018 Comp Metabolic Apt830 eGFR 95 ml/min/1.73m2 04/12/2018 Comp Metabolic Dly701 BUN 9 mg/dL 04/12/2018 Comp Metabolic Xzx756 B/C Ratio 13.8 Ratio 04/12/2018 Comp Metabolic Jsf038 CALCIUM 9.3 mg/dL 04/12/2018 Comp Metabolic Icm947 ALK PHOS 93 U/L 04/12/2018 Comp Metabolic Rsr330 AST(SGOT) 14 U/L 04/12/2018 Comp Metabolic Vdm989 ALT(SGPT) 14 U/L 04/12/2018 Comp Metabolic Toh168 BILI T 0.4 mg/dL 04/12/2018 Comp Metabolic Dut601 ALBUMIN 4.0 g/dL 04/12/2018 Comp Metabolic Onu586 TPRO 6.4 g/dL 04/12/2018 Comp Metabolic Uro002 GLOB 2.4 g/dL 04/12/2018 Comp Metabolic Cfx542 A/G Ratio 1.7 Ratio 04/12/2018 Comp Metabolic Nuh051 Osmo 280 mOsmo 04/12/2018 Comp Metabolic Jwn530 NA 139 mEq/L 12/08/2017 Comp Metabolic Nzw721 K 4.1 mEq/L 12/08/2017 Comp Metabolic Dpj856 CL 103 mEq/L 12/08/2017 Comp Metabolic Wbw355 CO2 28.0 mEq/L 12/08/2017 Comp Metabolic Jst521 ANION GAP 12 12/08/2017 Comp Metabolic Vcq813 GLUCOSE 120 mg/dL 12/08/2017 Comp Metabolic Joh256 Creat 0.7 mg/dL 12/08/2017 Comp Metabolic Hyv664 eGFR 90 ml/min/1.73m2 12/08/2017 Comp Metabolic Iny380 BUN 10 mg/dL 12/08/2017 Comp Metabolic Pxh750 B/C Ratio 14.7 Ratio 12/08/2017 Comp Metabolic Fqo001 CALCIUM 9.6 mg/dL 12/08/2017 Comp Metabolic Faj099 ALK PHOS 120 U/L 12/08/2017 Comp Metabolic Nqb397 AST(SGOT) 11 U/L 12/08/2017 Comp Metabolic Zrk182 ALT(SGPT) 13 U/L 12/08/2017 Comp Metabolic Sps564 BILI T 0.4 mg/dL 12/08/2017 Comp Metabolic Djm313 ALBUMIN 4.0 g/dL 12/08/2017 Comp Metabolic Yip426 TPRO 6.3 g/dL 12/08/2017 Comp Metabolic Ovj126 GLOB 2.3 g/dL 12/08/2017 Comp Metabolic Moz758 A/G Ratio 1.7 Ratio 12/08/2017 Comp Metabolic Lqg109 Osmo 278 mOsmo 12/08/2017 Lipid Ord30 CHOL [...] 87.7 fl 11/17/2017 Cbc With Differential Ord2 Calloway% 11.8 % 11/17/2017 Cbc With Differential Ord2 [...] 1.54 K/ul 11/17/2017 Cbc With Differential Ord2 [place] ABS# 1.0 K/ul 11/17/2017 Cbc With Differential Ord2 Eos ABS# 0.1 K/ul 11/17/2017 Cbc With Differential Ord2 Baso ABS# 0.1 K/ul 11/17/2017 Comp Metabolic Hjp010 NA 131 mEq/L 11/17/2017 Comp Metabolic Tmw994 K 4.6 mEq/L 11/17/2017 Comp Metabolic Ode092 CL 96 mEq/L 11/17/2017 Comp Metabolic Uit792 CO2 26.0 mEq/L 11/17/2017 Comp Metabolic Qzv914 ANION GAP 14 11/17/2017 Comp Metabolic Lfq833 GLUCOSE 110 mg/dL 11/17/2017 Comp Metabolic Blg347 Creat 0.6 mg/dL 11/17/2017 Comp Metabolic Vll334 eGFR 104 ml/min/1.73m2 11/17/2017 Comp Metabolic Izf111 BUN 14 mg/dL 11/17/2017 Comp Metabolic Lba244 B/C Ratio 23.3 Ratio 11/17/2017 Comp Metabolic Pkk475 CALCIUM 9.6 mg/dL 11/17/2017 Comp Metabolic Aux672 ALK PHOS 232 U/L 11/17/2017 Comp Metabolic Vso258 AST(SGOT) 10 U/L 11/17/2017 Comp Metabolic Fbm117 ALT(SGPT) 23 U/L 11/17/2017 Comp Metabolic Nsr042 BILI T 0.5 mg/dL 11/17/2017 Comp Metabolic Cad617 ALBUMIN 4.1 g/dL 11/17/2017 Comp Metabolic Jvs183 TPRO 6.5 g/dL 11/17/2017 Comp Metabolic Sow894 GLOB 2.4 g/dL 11/17/2017 Comp Metabolic Uos462 A/G Ratio 1.8 Ratio 11/17/2017 Comp Metabolic Rtc087 Osmo 264 mOsmo 11/17/2017 Review of Systems [...] Code : 8480-6 BMI: 25.7 Code : 65212-5 Heart Rate 1 : 78 bpm Height: 4'10" SpO2: 96% Weight: 123 lbs 01/09/2018 Blood Pressure 1: 142/72 Code : 8480-6 BMI: 26.5 Code : 18012-9 Heart Rate 1 : 87 bpm Height: 4'10" SpO2: 98% Weight: 127 lbs 12/08/2017 Blood Pressure 1: 170/88 Code : 8480-6 Heart Rate 1: 92 bpm Height: 4'10" SpO2: 96% Weight: 11/29/2017 Blood Pressure 1: 142/76 Code : 8480-6 Heart Rate 1: 92 bpm 11/28/2017 Blood Pressure 1: 170/88 Code : 8480-6 BMI: 26.1 Code : 33067-0 Heart Rate 1 : 112 bpm Height: 4'10 " SpO2: 99% Weight: 125 lbs 11/17/2017 Blood Pressure 1: 168/100 Code: 8480-6 Blood Pressure 1: 166/88 Code: 8480-6 BMI: 26.1 Code: 06708-6 Heart Rate 1: 102 bpm Height: 4'10" [...] data Encounters Encounter Performer Location Codes Date ([id number]) [id number] EST. PATIENT, LEVEL IV Diagnosis: Essential (primary) hypertension[ICD10: I10] Diagnosis: Mixed hyperlipidemia[ICD10: E78.2] Diagnosis: Pain in right shoulder[ICD10: M25.511] Diagnosis: Low back pain[ICD10: M54.5] Diagnosis: Hypothyroidism, unspecified[ICD10: E03.9] [facility] CPT-4: 19156 04/12/2018 ([id number]) 27537 EST. PATIENT, LEVEL III Diagnosis: Essential (primary) hypertension[ICD10: I10] Diagnosis: Pain in right shoulder[ICD10: M25.511] [facility] CPT-4: 00940 01/09/2018 ([id number]) 82169 EST. PATIENT, LEVEL III Diagnosis: Essential (primary) hypertension[ICD10: I10] Diagnosis: Hypo-osmolality and hyponatremia[ICD10: E87.1] Jackelin Damon MD, [facility] CPT-4: 83506 12/08/2017 ([id number]) Miscellaneous no charge Diagnosis: Essential (primary) hypertension[ICD10: I10] Jackelin Damon MD, [facility] CPT-4: 01354 11/29/2017 ([id number]) 05568 EST. PATIENT, LEVEL III Diagnosis: Essential (primary) hypertension[ICD10: I10] Jackelin Damon MD, [facility] CPT-4: 03167 11/28/2017 ([id number]) 04533 EST. PATIENT, LEVEL IV Diagnosis: Essential (primary) hypertension[ICD10: I10] Diagnosis: Hypo-osmolality and hyponatremia[ICD10: E87.1] Diagnosis: Mixed hyperlipidemia[ICD10: E78.2] Jackelin Damon MD, [facility] CPT-4: 15929 11/17/2017 Plan of Care Planned Activity Notes [...] shoulder today 04/12/2018 Appointment: Jackelin Fisher WPtel: [facility] [place] [phone] (15 min) Moderate 04/12/2018 Patient Education: Patient Medication Summary Completed 04/12/2018 Patient Education: Cholesterol Management Completed 04/12/2018 Patient Education: Back Pain Completed 04/12/2018 Appointment: Jackelin Fisher WPtel: [facility] [place] [phone] (15 min) Moderate 01/12/2018 Visit Plan: Hypertension [...] the xray 01/09/2018 Appointment: [phone] ([facility] min) Moderate 01/09/2018 Patient Education: Patient [...] sodium-check level 12/08/2017 Appointment: Jackelin Fisher WPtel: [phone] (15 min) Moderate 12/08/2017 Patient Education: Patient [...] concerns. 11/28/2017 Appointment: Jackelin Fisher WPtel: [phone] [facility] [place] [phone] (15 min) Moderate 11/28/2017 Patient Education: Patient [...] statin 11/17/2017 Appointment: [phone] New Patient 11/17/2017 Patient Education: Patient Medication Summary Completed 11/17/2017 Instructions Comment INCREASE AMLODIPINE TO 10MG DAILY -TAKE 2 PILLS OF THE 5MG TABS UNTIL YOUR RUN OUT AND THEN STUNT PERSON NEW PRESCRIPTION FOR 10MG 1 PILL DAILY [...]
[2018-10-31] MEDS ORDERED: LOVA10TA (09:47)
--- OUTSIDE RECORDS SUMMARY | 2018-10-31 09:47 | XMS REPORT | Continuity of Care Document ---
Author Organization Unknown Address Unknown Allergies Active Description Code Type Severity Reaction Onset Reported/Identified Relationship to Patient Clinical Status Yes codeine [id number] Drug Allergy Unknown N/A 07/25/2017 Medications There is no data. Problems Date Dx Coded Attending Type Code Diagnosis Diagnosed By 06/22/1022 KARLA SHERWOOD Ot M25.511 PAIN IN RIGHT SHOULDER 06/22/1022 KARLA SHERWOOD Ot M54.5 LOW BACK PAIN 07/25/2017 DAXA DUNN, KATARZYNA Infante Ot E03.9 HYPOTHYROIDISM, UNSPECIFIED 07/25/2017 DAXA DUNN, KATARZYNA Infante Ot E78.00 PURE HYPERCHOLESTEROLEMIA, UNSPECIFIED 07/25/2017 KATARZYNA MITTAL MD Ot F41.9 ANXIETY DISORDER, UNSPECIFIED 07/25/2017 KATARZYNA MITTAL MD Ot H61.20 IMPACTED CERUMEN, UNSPECIFIED EAR 07/25/2017 KATARZYNA MITTAL MD Ot I10 ESSENTIAL (PRIMARY) HYPERTENSION 07/25/2017 KATARZYNA MITTAL MD Ot M79.672 PAIN IN LEFT FOOT 07/25/2017 KATARZYNA MITTAL MD Ot R11.0 NAUSEA 07/25/2017 KATARZYNA MITTAL MD Ot R42 DIZZINESS AND GIDDINESS 07/25/2017 KATARZYNA MITTAL MD Ot R55 SYNCOPE AND COLLAPSE 07/25/2017 KATARZYNA MITTAL MD Ot Z87.891 PERSONAL HISTORY OF NICOTINE DEPENDENCE 07/25/2017 DAXA DUNN, KATARZYNA Infante Ot Z90.710 ACQUIRED ABSENCE OF BOTH CERVIX AND UTER 07/27/2017 KATARZYNA MITTAL MD Ot E03.9 HYPOTHYROIDISM, UNSPECIFIED 07/27/2017 KATARZYNA MITTAL MD Ot E78.00 PURE HYPERCHOLESTEROLEMIA, UNSPECIFIED 07/27/2017 KATARZYNA MITTAL MD Ot F41.9 ANXIETY DISORDER, UNSPECIFIED 07/27/2017 KATAZRYNA MITTAL MD Ot H61.20 IMPACTED CERUMEN, UNSPECIFIED EAR 07/27/2017 KATARZYNA MITTAL MD Ot I10 ESSENTIAL (PRIMARY) HYPERTENSION 07/27/2017 KATARZYNA MITTAL MD Ot M79.672 PAIN IN LEFT FOOT 07/27/2017 KATARZYNA MITTAL MD Ot R11.0 NAUSEA 07/27/2017 KATARZYNA MITTAL MD Ot R42 DIZZINESS AND GIDDINESS 07/27/2017 KATARZYNA MITTAL MD Ot R55 SYNCOPE AND COLLAPSE 07/27/2017 KATARZYNA MITTAL MD Ot Z87.891 PERSONAL HISTORY OF NICOTINE DEPENDENCE 07/27/2017 KATARZYNA MITTAL MD Ot Z90.710 ACQUIRED ABSENCE OF BOTH CERVIX AND UTER 08/02/2017 KATARZYNA MITTAL MD Ot E03.9 HYPOTHYROIDISM, UNSPECIFIED 08/02/2017 KATARZYNA MITTAL MD Ot E78.00 PURE HYPERCHOLESTEROLEMIA, UNSPECIFIED 08/02/2017 KATARZYNA MITTAL MD Ot F41.9 ANXIETY DISORDER, UNSPECIFIED 08/02/2017 KATARZYNA MITTAL MD Ot H61.20 IMPACTED CERUMEN, UNSPECIFIED EAR 08/02/2017 KATARZYNA MITTAL MD Ot I10 ESSENTIAL (PRIMARY) HYPERTENSION 08/02/2017 KATARZYNA MITTAL MD Ot M79.672 PAIN IN LEFT FOOT 08/02/2017 KATARZYNA MITTAL MD Ot R11.0 NAUSEA 08/02/2017 KATARZYNA MITTAL MD Ot R42 DIZZINESS AND GIDDINESS 08/02/2017 KATARZYNA MITTAL MD Ot R55 SYNCOPE AND COLLAPSE 08/02/2017 KATARZYNA MITTAL MD Ot Z87.891 PERSONAL HISTORY OF NICOTINE DEPENDENCE 08/02/2017 KATARZYNA MITTAL MD Ot Z90.710 ACQUIRED ABSENCE OF BOTH CERVIX AND UTER 10/02/2017 KELLIE SHAH APRN Ot M47.816 SPONDYLOSIS W/O MYELOPATHY OR RADICULOPA 10/02/2017 PABLOKELLIE GOAT HERDER Ot R10.2 PELVIC AND PERINEAL PAIN 10/02/2017 PABLOKELLIE GOAT HERDER Ot W19.XXXA UNSPECIFIED FALL, INITIAL ENCOUNTER 10/24/2017 KELLIE SHAH GOAT HERDER Ot M47.816 SPONDYLOSIS W/O MYELOPATHY OR RADICULOPA 10/24/2017 PABLOKELLIE L GOAT HERDER Ot R10.2 PELVIC AND PERINEAL PAIN 10/24/2017 PABLOKELLIE GOAT HERDER Ot W19.XXXA UNSPECIFIED FALL, INITIAL ENCOUNTER 11/13/2017 JC PARDO MD Ot E03.9 HYPOTHYROIDISM, UNSPECIFIED 11/13/2017 JC PARDO MD Ot E78.00 PURE HYPERCHOLESTEROLEMIA, UNSPECIFIED 11/13/2017 JC PARDO MD Ot E86.1 HYPOVOLEMIA 11/13/2017 JC PARDO MD Ot E87.1 HYPO-OSMOLALITY AND HYPONATREMIA 11/13/2017 JC PARDO MD Ot F32.9 MAJOR DEPRESSIVE DISORDER, SINGLE EPISOD 11/13/2017 JC PARDO MD Ot F41.9 ANXIETY DISORDER, UNSPECIFIED 11/13/2017 JC PARDO MD Ot I16.1 HYPERTENSIVE EMERGENCY 11/13/2017 JC PARDO MD Ot M53.3 SACROCOCCYGEAL DISORDERS, NOT ELSEWHERE 11/13/2017 JC PARDO MD Ot M54.30 SCIATICA, UNSPECIFIED SIDE 11/13/2017 JC PARDO MD Ot R53.1 WEAKNESS 11/13/2017 JC PARDO MD Ot Z87.891 PERSONAL HISTORY OF NICOTINE DEPENDENCE 11/13/2017 JC PARDO MD Ot Z91.81 HISTORY OF FALLING 11/13/2017 JC PARDO MD Ot E03.9 HYPOTHYROIDISM, UNSPECIFIED 11/13/2017 JC PARDO MD Ot E78.00 PURE HYPERCHOLESTEROLEMIA, UNSPECIFIED 11/13/2017 JC PARDO MD Ot E86.1 HYPOVOLEMIA 11/13/2017 JC PARDO MD Ot E87.1 HYPO-OSMOLALITY AND HYPONATREMIA 11/13/2017 JC PARDO MD Ot F32.9 MAJOR DEPRESSIVE DISORDER, SINGLE EPISOD 11/13/2017 JC PARDO MD Ot F41.9 ANXIETY DISORDER, UNSPECIFIED 11/13/2017 JC PARDO MD Ot I16.1 HYPERTENSIVE EMERGENCY 11/13/2017 JC PARDO MD Ot M53.3 SACROCOCCYGEAL DISORDERS, NOT ELSEWHERE 11/13/2017 JC PARDO MD Ot M54.30 SCIATICA, UNSPECIFIED SIDE 11/13/2017 JC PADRO MD Ot Z87.891 PERSONAL HISTORY OF NICOTINE DEPENDENCE 11/13/2017 JC PARDO MD Ot Z91.81 HISTORY OF FALLING 11/13/2017 JC PARDO MD Ot E03.9 HYPOTHYROIDISM, UNSPECIFIED 11/13/2017 JC PARDO MD Ot E78.00 PURE HYPERCHOLESTEROLEMIA, UNSPECIFIED 11/13/2017 JC PARDO MD Ot E86.1 HYPOVOLEMIA 11/13/2017 JC PARDO MD Ot E87.1 HYPO-OSMOLALITY AND HYPONATREMIA 11/13/2017 JC PARDO MD Ot F32.9 MAJOR DEPRESSIVE DISORDER, SINGLE EPISOD 11/13/2017 JC PARDO MD Ot F41.9 ANXIETY DISORDER, UNSPECIFIED 11/13/2017 JC PARDO MD Ot I16.1 HYPERTENSIVE EMERGENCY 11/13/2017 JC PARDO MD Ot M53.3 SACROCOCCYGEAL DISORDERS, NOT ELSEWHERE 11/13/2017 JC PARDO MD Ot M54.30 SCIATICA, UNSPECIFIED SIDE 11/13/2017 JC PARDO MD Ot Z87.891 PERSONAL HISTORY OF NICOTINE DEPENDENCE 11/13/2017 JC PARDO MD Ot Z91.81 HISTORY OF FALLING 11/13/2017 JC PARDO MD Ot E03.9 HYPOTHYROIDISM, UNSPECIFIED 11/13/2017 JC PARDO MD Ot E78.00 PURE HYPERCHOLESTEROLEMIA, UNSPECIFIED 11/13/2017 JC PARDO MD Ot E86.1 HYPOVOLEMIA 11/13/2017 JC PARDO MD Ot E87.1 HYPO-OSMOLALITY AND HYPONATREMIA 11/13/2017 JC PARDO MD Ot F32.9 MAJOR DEPRESSIVE DISORDER, SINGLE EPISOD 11/13/2017 JC PARDO MD Ot F41.9 ANXIETY DISORDER, UNSPECIFIED 11/13/2017 JC PARDO MD Ot I16.1 HYPERTENSIVE EMERGENCY 11/13/2017 JC PARDO MD Ot M53.3 SACROCOCCYGEAL DISORDERS, NOT ELSEWHERE 11/13/2017 JC PARDO MD Ot M54.30 SCIATICA, UNSPECIFIED SIDE 11/13/2017 JC PARDO MD Ot Z87.891 PERSONAL HISTORY OF NICOTINE DEPENDENCE 11/13/2017 JC PARDO MD Ot Z91.81 HISTORY OF FALLING 12/06/2017 JC PARDO MD Ot M54.41 LUMBAGO WITH SCIATICA, RIGHT SIDE 12/06/2017 JC PARDO MD Ot R53.1 WEAKNESS 01/09/2018 JC PARDO MD Ot M54.41 LUMBAGO WITH SCIATICA, RIGHT SIDE 01/09/2018 JC PARDO MD Ot R53.1 WEAKNESS 04/12/2018 KELLIE SHAH GOAT HERDER Ot M47.816 SPONDYLOSIS W/O MYELOPATHY OR RADICULOPA 04/12/2018 KELLIE SHAH GOAT HERDER Ot R10.2 PELVIC AND PERINEAL PAIN 04/12/2018 KELLIE SHAH GOAT HERDER Ot W19.XXXA UNSPECIFIED FALL, INITIAL ENCOUNTER 04/13/2018 KARLA SHERWOOD Ot M25.511 PAIN IN RIGHT SHOULDER 04/13/2018 KARLA SHERWOOD Ot M54.5 LOW BACK PAIN 04/13/2018 KARLA SHERWOODP Ot W19.XXXA UNSPECIFIED FALL, INITIAL ENCOUNTER 05/04/2018 KARLA SHERWOOD Ot M25.511 PAIN IN RIGHT SHOULDER 05/04/2018 KARLA SHERWOOD Ot M54.5 LOW BACK PAIN 05/04/2018 KARLA SHERWOOD Ot W19.XXXA UNSPECIFIED FALL, INITIAL ENCOUNTER 05/14/2018 KARLA SHERWOOD Ot M25.511 PAIN IN RIGHT SHOULDER 05/14/2018 KARLA SHERWOOD [facility] Ot M54.5 LOW BACK PAIN 06/18/2018 KARLA SHERWOOD [facility] Ot M25.511 PAIN IN RIGHT SHOULDER 06/18/2018 KARLA SHERWOOD [facility] Ot M54.5 LOW BACK PAIN Procedures There is no data. Results Test Result Range Complete blood count (CBC) with automated white blood cell (WBC) differential - 07/25/17 07:52 Blood leukocytes automated count (number/volume) 8.9 10*3/uL 4.3-11.0 Blood erythrocytes automated count (number/volume) 4.44 10*6/uL 4.35-5.85 Venous blood hemoglobin measurement (mass/volume) 13.4 g/dL 11.5-16.0 Blood hematocrit (volume fraction) 39 % 35-52 Automated erythrocyte mean corpuscular volume 87 [foz_us] 80-99 Automated erythrocyte mean corpuscular hemoglobin (mass per erythrocyte) 30 pg 25-34 Automated erythrocyte mean corpuscular hemoglobin concentration measurement ( mass/volume) 35 g/dL 32-36 Automated erythrocyte distribution width ratio 12.1 % 10.0-14.5 Automated blood platelet count (count/volume) 289 10*3/uL 130-400 Automated blood platelet mean volume measurement 9.1 [foz_us] 7.4-10.4 Automated blood neutrophils/100 leukocytes 76 % 42-75 Automated blood lymphocytes/100 leukocytes 13 % 12-44 Blood monocytes/100 leukocytes 10 % 0-12 Automated blood eosinophils/100 leukocytes 1 % 0-10 Automated blood basophils/100 leukocytes 0 % 0-10 Blood neutrophils automated count (number/volume) 6.8 10*3 1.8-7.8 Blood lymphocytes automated count (number/volume) 1.2 10*3 1.0-4.0 Blood monocytes automated count (number/volume) 0.9 10*3 0.0-1.0 Automated eosinophil count 0.1 10*3/uL 0.0-0.3 Automated blood basophil count (count/volume) 0.0 10*3/uL 0.0-0.1 Comprehensive metabolic panel - 07/25/17 07:52 Serum or plasma sodium measurement (moles/volume) 133 mmol/L 135-145 Serum or plasma potassium measurement (moles/volume) 5.0 mmol/L 3.6-5.0 Serum or plasma chloride measurement (moles/volume) 98 mmol/L 98-107 Carbon dioxide 25 mmol/L 21-32 Serum or plasma anion gap determination (moles/volume) 10 mmol/L 5-14 Serum or plasma urea nitrogen measurement (mass/volume) 10 mg/dL 7-18 Serum or plasma creatinine measurement (mass/volume) 0.77 mg/dL 0.60-1.30 Serum or plasma urea nitrogen/creatinine mass ratio 13 NRG Serum or plasma creatinine measurement with calculation of estimated glomerular filtration rate > NRG Serum or plasma glucose measurement (mass/volume) 119 mg/dL 70-105 Serum or plasma calcium measurement (mass/volume) 9.3 mg/dL 8.5-10.1 Serum or plasma total bilirubin measurement (mass/volume) 0.7 mg/dL 0.1-1.0 Serum or plasma alkaline phosphatase measurement (enzymatic activity/volume) 103 U/L 40-136 Serum or plasma aspartate aminotransferase measurement (enzymatic activity/ volume) 17 U/L 5-34 Serum or plasma alanine aminotransferase measurement (enzymatic activity/volume ) 25 U/L 0-55 Serum or plasma protein measurement (mass/volume) 6.9 g/dL 6.4-8.2 Serum or plasma albumin measurement (mass/volume) 4.0 g/dL 3.2-4.5 Magnesium - 07/25/17 07:52 Magnesium 2.1 mg/dL 1.8-2.4 Serum or plasma troponin i.cardiac measurement (mass/volume) - 07/25/17 07:52 Serum or plasma troponin i.cardiac measurement (mass/volume) < ng/ mL <0.30 THYROID STIMULATING HORMONE - 07/25/17 07:52 THYROID STIMULATING HORMONE 4.93 u[iU]/mL 0.35-4.94 Serum or plasma thyroxine (T4) free measurement (mass/volume) - 07/25/17 07:52 Serum or plasma thyroxine (T4) free measurement (mass/volume) 1.11 ng/dL 0.70-1.48 Influenza virus A and B antigen detection - 07/25/17 08:06 FLU RESULT NEGATIVE FOR INFLUENZA A AND B ANTIGENS BY IA NRG Complete urinalysis with reflex to culture - 07/25/17 09:25 Urine color determination YELLOW NRG Urine clarity determination CLEAR NRG Urine pH measurement by test strip 8 5-9 Specific gravity of urine by test strip 1.015 1.016- 1.022 Urine protein assay by test strip, semi-quantitative NEGATIVE NEGATIVE Urine glucose detection by automated test strip NEGATIVE NEGATIVE Erythrocytes detection in urine sediment by light microscopy NEGATIVE NEGATIVE Urine ketones detection by automated test strip NEGATIVE NEGATIVE Urine nitrite detection by test strip NEGATIVE NEGATIVE Urine total bilirubin detection by test strip NEGATIVE NEGATIVE Urine urobilinogen measurement by automated test strip (mass/volume) NORMAL NORMAL Urine leukocyte esterase detection by dipstick NEGATIVE NEGATIVE Automated urine sediment erythrocyte count by microscopy (number/high power field) NONE NRG Automated urine sediment leukocyte count by microscopy (number/high power field ) NONE NRG Bacteria detection in urine sediment by light microscopy NEGATIVE NRG Squamous epithelial cells detection in urine sediment by light microscopy 0-2 NRG Crystals detection in urine sediment by light microscopy PRESENT NRG Casts detection in urine sediment by light microscopy NONE NRG Mucus detection in urine sediment by light microscopy NEGATIVE NRG Complete urinalysis with reflex to culture NO NRG Amorphous sediment detection in urine sediment by light microscopy FEW KEMAR PHOSPHATE NRG Complete blood count (CBC) with automated white blood cell (WBC) differential - 11/10/17 20:15 Blood leukocytes automated count (number/volume) 8.5 10*3/uL 4.3-11.0 Blood erythrocytes automated count (number/volume) 4.54 10*6/uL 4.35-5.85 Venous blood hemoglobin measurement (mass/volume) 13.6 g/dL 11.5-16.0 Blood hematocrit (volume fraction) 38 % 35-52 Automated erythrocyte mean corpuscular volume 84 [foz_us] 80-99 Automated erythrocyte mean corpuscular hemoglobin (mass per erythrocyte) 30 pg 25-34 Automated erythrocyte mean corpuscular hemoglobin concentration measurement ( mass/volume) 36 g/dL 32-36 Automated erythrocyte distribution width ratio 12.4 % 10.0-14.5 Automated blood platelet count (count/volume) 411 10*3/uL 130-400 Automated blood platelet mean volume measurement 7.9 [foz_us] 7.4-10.4 Automated blood neutrophils/100 leukocytes 73 % 42-75 Automated blood lymphocytes/100 leukocytes 14 % 12-44 Blood monocytes/100 leukocytes 11 % 0-12 Automated blood eosinophils/100 leukocytes 2 % 0-10 Automated blood basophils/100 leukocytes 0 % 0-10 Blood neutrophils automated count (number/volume) 6.2 10*3 1.8-7.8 Blood lymphocytes automated count (number/volume) 1.2 10*3 1.0-4.0 Blood monocytes automated count (number/volume) 1.0 10*3 0.0-1.0 Automated eosinophil count 0.1 10*3/uL 0.0-0.3 Automated blood basophil count (count/volume) 0.0 10*3/uL 0.0-0.1 Whole blood basic metabolic panel - 11/10/17 20:15 Serum or plasma sodium measurement (moles/volume) 124 mmol/L 135-145 Serum or plasma potassium measurement (moles/volume) 4.0 mmol/L 3.6-5.0 Serum or plasma chloride measurement (moles/volume) 91 mmol/L 98-107 Carbon dioxide 24 mmol/L 21-32 Serum or plasma anion gap determination (moles/volume) 9 mmol/L 5-14 Serum or plasma urea nitrogen measurement (mass/volume) 8 mg/dL 7-18 Serum or plasma creatinine measurement (mass/volume) 0.64 mg/dL 0.60-1.30 Serum or plasma urea nitrogen/creatinine mass ratio 13 NRG Serum or plasma creatinine measurement with calculation of estimated glomerular filtration rate > NRG Serum or plasma glucose measurement (mass/volume) 99 mg/dL 70-105 Serum or plasma calcium measurement (mass/volume) 9.8 mg/dL 8.5-10.1 Serum or plasma creatine kinase measurement (enzymatic activity/volume) - 11/10 20:15 Serum or plasma creatine kinase measurement (enzymatic activity/volume) 13 U/L 29-168 THYROID STIMULATING HORMONE - 11/10/17 20:15 THYROID STIMULATING HORMONE 6.08 u[iU]/mL 0.35-4.94 Serum or plasma thyroxine (T4) free measurement (mass/volume) - 11/10/17 20:15 Serum or plasma thyroxine (T4) free measurement (mass/volume) 1.45 ng/dL 0.70-1.48 Magnesium - 11/10/17 20:15 Magnesium 2.0 mg/dL 1.8-2.4 Serum or plasma C reactive protein measurement (mass/volume) - 11/10/17 20:15 Serum or plasma C reactive protein measurement (mass/volume) 0.56 mg /dL 0.00-0.50 Complete urinalysis with reflex to culture - 11/10/17 21:38 Urine color determination YELLOW NRG Urine clarity determination CLEAR NRG Urine pH measurement by test strip 7 5-9 Specific gravity of urine by test strip 1.010 1.016- 1.022 Urine protein assay by test strip, semi-quantitative NEGATIVE NEGATIVE Urine glucose detection by automated test strip NEGATIVE NEGATIVE Erythrocytes detection in urine sediment by light microscopy NEGATIVE NEGATIVE Urine ketones detection by automated test strip NEGATIVE NEGATIVE Urine nitrite detection by test strip NEGATIVE NEGATIVE Urine total bilirubin detection by test strip NEGATIVE NEGATIVE Urine urobilinogen measurement by automated test strip (mass/volume) NORMAL NORMAL Urine leukocyte esterase detection by dipstick 1+ NEGATIVE Automated urine sediment erythrocyte count by microscopy (number/high power field) NONE NRG Automated urine sediment leukocyte count by microscopy (number/high power field ) [HPF] NRG Bacteria detection in urine sediment by light microscopy NEGATIVE NRG Crystals detection in urine sediment by light microscopy NONE NRG Casts detection in urine sediment by light microscopy NONE NRG Mucus detection in urine sediment by light microscopy NEGATIVE NRG Complete urinalysis with reflex to culture NO NRG Complete urinalysis with reflex to culture - 11/11/17 06:19 Urine color determination YELLOW NRG Urine clarity determination CLEAR NRG Urine pH measurement by test strip 7 5-9 Specific gravity of urine by test strip 1.010 1.016- 1.022 Urine protein assay by test strip, semi-quantitative NEGATIVE NEGATIVE Urine glucose detection by automated test strip NEGATIVE NEGATIVE Erythrocytes detection in urine sediment by light microscopy NEGATIVE NEGATIVE Urine ketones detection by automated test strip NEGATIVE NEGATIVE Urine nitrite detection by test strip NEGATIVE NEGATIVE Urine total bilirubin detection by test strip NEGATIVE NEGATIVE Urine urobilinogen measurement by automated test strip (mass/volume) NORMAL NORMAL Urine leukocyte esterase detection by dipstick NEGATIVE NEGATIVE Automated urine sediment erythrocyte count by microscopy (number/high power field) NONE NRG Automated urine sediment leukocyte count by microscopy (number/high power field ) NONE NRG Bacteria detection in urine sediment by light microscopy NEGATIVE NRG Squamous epithelial cells detection in urine sediment by light microscopy 0-2 NRG Crystals detection in urine sediment by light microscopy NONE NRG Casts detection in urine sediment by light microscopy NONE NRG Mucus detection in urine sediment by light microscopy NEGATIVE NRG Complete urinalysis with reflex to culture NO NRG Urine sodium measurement (moles/volume) - 11/11/17 06:19 Urine sodium measurement (moles/volume) 74 mmol/L 50-200 Complete blood count (CBC) with automated white blood cell (WBC) differential - 11/11/17 06:41 Blood leukocytes automated count (number/volume) 7.7 10*3/uL 4.3-11.0 Blood erythrocytes automated count (number/volume) 4.34 10*6/uL 4.35-5.85 Venous blood hemoglobin measurement (mass/volume) 12.9 g/dL 11.5-16.0 Blood hematocrit (volume fraction) 36 % 35-52 Automated erythrocyte mean corpuscular volume 83 [foz_us] 80-99 Automated erythrocyte mean corpuscular hemoglobin (mass per erythrocyte) 30 pg 25-34 Automated erythrocyte mean corpuscular hemoglobin concentration measurement ( mass/volume) 36 g/dL 32-36 Automated erythrocyte distribution width ratio 12.4 % 10.0-14.5 Automated blood platelet count (count/volume) 392 10*3/uL 130-400 Automated blood platelet mean volume measurement 8.0 [foz_us] 7.4-10.4 Automated blood neutrophils/100 leukocytes 71 % 42-75 Automated blood lymphocytes/100 leukocytes 15 % 12-44 Blood monocytes/100 leukocytes 12 % 0-12 Automated blood eosinophils/100 leukocytes 2 % 0-10 Automated blood basophils/100 leukocytes 0 % 0-10 Blood neutrophils automated count (number/volume) 5.4 10*3 1.8-7.8 Blood lymphocytes automated count (number/volume) 1.2 10*3 1.0-4.0 Blood monocytes automated count (number/volume) 0.9 10*3 0.0-1.0 Automated eosinophil count 0.2 10*3/uL 0.0-0.3 Automated blood basophil count (count/volume) 0.0 10*3/uL 0.0-0.1 Whole blood basic metabolic panel - 11/11/17 06:41 Serum or plasma sodium measurement (moles/volume) 131 mmol/L 135-145 Serum or plasma potassium measurement (moles/volume) 4.2 mmol/L 3.6-5.0 Serum or plasma chloride measurement (moles/volume) 102 mmol/L 98-107 Carbon dioxide 21 mmol/L 21-32 Serum or plasma anion gap determination (moles/volume) 8 mmol/L 5-14 Serum or plasma urea nitrogen measurement (mass/volume) 6 mg/dL 7-18 Serum or plasma creatinine measurement (mass/volume) 0.58 mg/dL 0.60-1.30 Serum or plasma urea nitrogen/creatinine mass ratio 10 NRG Serum or plasma creatinine measurement with calculation of estimated glomerular filtration rate > NRG Serum or plasma glucose measurement (mass/volume) 108 mg/dL 70-105 Serum or plasma calcium measurement (mass/volume) 9.1 mg/dL 8.5-10.1 Capillary blood glucose measurement by glucometer (mass/volume) - 11/11/17 10: 35 Capillary blood glucose measurement by glucometer (mass/volume) 142 mg/dL 70-110 Complete blood count (CBC) with automated white blood cell (WBC) differential - 11/12/17 04:15 Blood leukocytes automated count (number/volume) 9.7 10*3/uL 4.3-11.0 Blood erythrocytes automated count (number/volume) 4.22 10*6/uL 4.35-5.85 Venous blood hemoglobin measurement (mass/volume) 12.7 g/dL 11.5-16.0 Blood hematocrit (volume fraction) 36 % 35-52 Automated erythrocyte mean corpuscular volume 85 [foz_us] 80-99 Automated erythrocyte mean corpuscular hemoglobin (mass per erythrocyte) 30 pg 25-34 Automated erythrocyte mean corpuscular hemoglobin concentration measurement ( mass/volume) 35 g/dL 32-36 Automated erythrocyte distribution width ratio 12.6 % 10.0-14.5 Automated blood platelet count (count/volume) 431 10*3/uL 130-400 Automated blood platelet mean volume measurement 8.1 [foz_us] 7.4-10.4 Automated blood neutrophils/100 leukocytes 73 % 42-75 Automated blood lymphocytes/100 leukocytes 13 % 12-44 Blood monocytes/100 leukocytes 11 % 0-12 Automated blood eosinophils/100 leukocytes 2 % 0-10 Automated blood basophils/100 leukocytes 0 % 0-10 Blood neutrophils automated count (number/volume) 7.1 10*3 1.8-7.8 Blood lymphocytes automated count (number/volume) 1.3 10*3 1.0-4.0 Blood monocytes automated count (number/volume) 1.1 10*3 0.0-1.0 Automated eosinophil count 0.2 10*3/uL 0.0-0.3 Automated blood basophil count (count/volume) 0.0 10*3/uL 0.0-0.1 Whole blood basic metabolic panel - 11/12/17 04:15 Serum or plasma sodium measurement (moles/volume) 129 mmol/L 135-145 Serum or plasma potassium measurement (moles/volume) 4.3 mmol/L 3.6-5.0 Serum or plasma chloride measurement (moles/volume) 98 mmol/L 98-107 Carbon dioxide 21 mmol/L 21-32 Serum or plasma anion gap determination (moles/volume) 10 mmol/L 5-14 Serum or plasma urea nitrogen measurement (mass/volume) 11 mg/dL 7-18 Serum or plasma creatinine measurement (mass/volume) 0.63 mg/dL 0.60-1.30 Serum or plasma urea nitrogen/creatinine mass ratio 17 NRG Serum or plasma creatinine measurement with calculation of estimated glomerular filtration rate > NRG Serum or plasma glucose measurement (mass/volume) 105 mg/dL 70-105 Serum or plasma calcium measurement (mass/volume) 9.4 mg/dL 8.5-10.1 Encounters ACCT No. Visit Date/Time Discharge Status Pt. Type Provider Facility Loc./Unit Complaint [id number] 09/04/2017 10:31:51 09/04/2017 23:59:59 CLS Outpatient Rianna Monsalve [id number] 01/31/2017 09:52:42 01/31/2017 23:59:59 CLS Outpatient Rianna Monsalve [id number] 09/21/2015 13:25:23 09/21/2015 23:59:59 CLS Outpatient Armando Guillaume [id number] 07/14/2015 10:42:11 07/14/2015 23:59:59 CLS Outpatient Shama Hutton [id number] 11/13/2017 16:04:46 11/13/2017 23:59:59 CLS Outpatient [id number] 07/10/2018 09:31:00 07/10/2018 10:23:00 DIS Outpatient KARLA SHERWOOD [facility] REHAB LOW BACK PAIN; R SHOULDER PAIN [id number] 04/12/2018 10:15:00 04/12/2018 23:59:59 CLS Outpatient KARLA SHERWOOD [facility] RAD R SHOULDER PAIN, LOW BACK PAIN [id number] 01/09/2018 14:58:00 01/09/2018 17:08:00 DIS Outpatient CHAR DUNN, JC Blanca [facility] REHAB WEAKNESS; SCIATICA [id number] 11/11/2017 13:02:00 11/13/2017 14:30:00 DIS Inpatient CHAR DUNN, JC Blanca [facility] 4TH HYPONATREMIA, HYPERTENSIVE URGENCY [id number] 09/30/2017 15:25:00 09/30/2017 23:59:59 CLS Outpatient KELLIE SHAH APRN [facility] RAD S79.911A,M25.559,R10.2 [id number] 07/25/2017 07:29:00 07/25/2017 10:51:00 DIS Emergency DAXA DUNN, KATARZYNA Infante [facility] ER WEAKNESS,SYNCOPE [id number] 10/31/2018 09:37:00 ACT Emergency MICHELINE DUNN, LARRY Mccauley [facility] ER KNEE PAIN
[2018-10-31] MEDS ORDERED: KETOROLAC 30 MG/ML VIAL IM STA (09:48)
--- NOTE | 2018-10-31 10:14 | ED Lower Extremity ---
General Chief Complaint: Lower Extremity Stated Complaint: KNEE PAIN Nursing Triage Note: TO ED PER W/C C/O PAIN BEHINDE R KNEE NO INJURY Nursing Sepsis Screen: No Definite Risk Source: patient Exam Limitations: no limitations (LARRY TOBIAS MD) History of Present Illness Date Seen by Provider: Oct 31, 2018 Time Seen by Provider: 09:43 Initial Comments Here with complaint of pain behind the right knee. Denies specific injury. States that she was out walking her dog this morning when she started getting pain behind her right knee and then it suddenly became quite severe. She called her neighbor who got her home. Ultimately she presented here because of the pain. Does note that she's had some intermittent pain behind her right knee over the last 2 months. Onset: just prior to arrival (approximately one hour ago) Method of Injury: unknown Modifying Factors: Improves With Immobilization (pain is essentially gone when leg is straight.); Worse With Movement (LARRY TOBIAS MD) Allergies and Home Medications Allergies Coded Allergies: codeine (Verified Allergy, Unknown, 07/25/17) Home Medications Alprazolam 0.5 Mg Tablet, 0.25-0.5 MG PO DAILY PRN for ANXIETY, (Reported) TAKES 1/2 TO 1 OF A (0.5 MG) TABLET Amlodipine Besylate 5 Mg Tablet, 5 MG PO DAILY Prescribed by: JC PARDO on 11/12/17 1237 Aspirin 81 Mg Tablet.dr, 81 MG PO HS, (Reported) Cholecalciferol (Vitamin D3) 1,000 Unit Capsule, 1,000 UNIT PO DAILY, (Reported) Fish Oil/Dha/Epa 1 Each Capsule, 1,200 MG PO DAILY, (Reported) Gabapentin 100 Mg Capsule, 100 MG PO HS, (Reported) Multivitamin with Minerals 1 Each Tablet, 1 TAB PO DAILY, (Reported) [Levothroid] , 88 MCG DAILY Prescribed by: LAZARO LYLE on 11/13/17 1216 Patient Home Medication List Home Medication List Reviewed: Yes (LARRY TOBIAS MD) Review of Systems Constitutional: see HPI; No chills, No fever Respiratory: no symptoms reported Cardiovascular: No chest pain, No edema Musculoskeletal: see HPI, joint pain, muscle pain Skin: No change in color, No lesions Psychiatric/Neurological: No Symptoms Reported (LARRY TOBIAS MD) Past Iqfzqcg-Uvtqad-Ezvmja Hx Past Med/Social Hx: Reviewed Nursing Past Med/Soc Hx (LARRY TOBIAS MD) Patient Social History Alcohol Use: Denies Use Recreational Drug Use: No Smoking Status: Former Smoker Type Used: Cigarettes Former Smoker, Quit: Aug 03, 2009 2nd Hand Smoke Exposure: No Recent Foreign Travel: No Contact w/Someone Who Travel: No Recent Infectious Disease Expo: No Recent Hopitalizations: No (LARRY TOBIAS MD) Immunizations Up To Date Date of Pneumonia Vaccine: Apr 23, 2016 (LARRY TOBIAS MD) Seasonal Allergies Seasonal Allergies: No (LARRY TOBIAS MD) Past Medical History Surgeries: Yes (rt shoulder, rt/lt carpal tunnel, rt hand ) Hysterectomy, Oophorectomy, Orthopedic Respiratory: No Currently Using CPAP: No Currently Using BIPAP: No Cardiac: Yes High Cholesterol, Hypertension Neurological: No Genitourinary: No Gastrointestinal: No Musculoskeletal: Yes Arthritis Endocrine: Yes Hypothyroidsim HEENT: No Cancer: No Psychosocial: Yes Anxiety, Depression Integumentary: No Blood Disorders: No Adverse Reaction/Blood Tranf: No (LARRY TOBIAS MD) Family Medical History Reviewed Nursing Family Hx (LARRY TOBIAS MD) Alcoholism G8 SISTER Arthritis 19 MOTHER Cataracts 19 MOTHER Dementia 19 FATHER FH: breast cancer G8 SISTER FH: lung cancer G8 SISTER FH: macular degeneration 19 MOTHER Hypertension 19 FATHER 19 MOTHER Kidney disease 19 MOTHER Physical Exam Vital Signs Vital Signs - First Documented 10/31/18 09:38 Temp 99.3 Pulse 91 Resp 18 B/P (MAP) 152/95 (114) Pulse Ox 98 O2 Delivery Room Air (TD VILLALTA APRN) Vital Signs Capillary Refill : Less Than 3 Seconds (LARRY TOBIAS MD) Height, Weight, BMI Height: 5'3.00" Weight: 125lbs. 3.2oz. [id number]; 26.6 BMI Method:Stated General Appearance: WD/WN, no apparent distress Cardiovascular: regular rate, rhythm, no murmur Respiratory: lungs clear, normal breath sounds Knees: left knee non-tender, left knee normal inspection, left knee normal range of motion; right knee joint effusion, right knee pain (posterior), right knee soft tissue tenderness (posterior), right knee other ( negative drawer and negative medial or lateral laxity) Feet: bilateral foot non-tender, bilateral foot normal inspection, bilateral foot normal range of motion Neurologic/Tendon: normal sensation, normal motor functions, normal tendon functions Neurologic/Psychiatric: alert, oriented x 3 Skin: normal color, warm/dry (LARRY TOBIAS MD) Progress/Results/Core Measures Results/Orders Vital Signs/I&O 10/31/18 09:38 Temp 99.3 Pulse 91 Resp 18 B/P (MAP) 152/95 (114) Pulse Ox 98 O2 Delivery Room Air (TD VILLALTA APRN) Blood Pressure Mean: 114 Progress Progress Note : Progress Note Seen and evaluated. Toradol 30 mg IM. Right knee x-ray and right leg venous ultrasound. (LARRY TOBIAS MD) Departure Communication (Admissions) venous ultrasound is negative and x-ray is unremarkable aside from osteopenia (TD VILLALTA APRN) Impression Primary Impression: Knee pain Qualified Codes: M25.569 - Pain in unspecified knee Disposition: 01 HOME, SELF-CARE Condition: Stable Departure-Patient Inst. Decision time for Depature: 11:19 (TD VILLALTA APRN) Referrals: SURY DAMON MD (PCP) Primary Care Physician Patient Instructions: Knee Pain (DC) Add. Discharge Instructions: 1. Follow-up with Dr. Damon. If the pain persists the next step will be an MRI of the knee to evaluate other structures such as the meniscus All discharge instructions reviewed with patient and/or family. Voiced understanding. Copy Copies To 1: SURY DAMON MD, TIMOTHY D MD Oct 31, 2018 10:14 TD VILLALTA APRN Oct 31, 2018 11:20
--- NOTE | 2018-10-31 11:10 | Diagnostic Imaging Report ---
PATIENT HISTORY: Pain at the posterior right knee. TECHNIQUE: 3 views of the right knee COMPARISON: None FINDINGS: There is diffuse osteopenia. No acute fracture or dislocation is seen in the right knee. Alignment appears normal. No significant joint effusion is seen, although the knee is in increased flexion. There is mild enthesopathy at the patella. There is calcific atherosclerosis. IMPRESSION: Osteopenia with no acute osseous abnormalities seen in the right knee. Dictated by: Dictated on workstation # [id number]
--- NOTE | 2018-10-31 11:12 | Diagnostic Imaging Report ---
PROCEDURE: US right lower extremity venous. TECHNIQUE: Multiple real-time grayscale images were obtained over the right lower extremity in various projections. Additional spectral analysis and color Doppler duplex images were also obtained. INDICATION: Leg pain and swelling There are no prior studies available for comparison There is generally good blood flow and compressibility at all levels of the deep venous system. There is no evidence for a deep venous thrombosis. IMPRESSION: There is no evidence for a deep venous thrombosis of the right lower extremity. Dictated by: Dictated on workstation # [id number]
[2018-10-31 11:39] VITALS: BP 152/95
--- NOTE | 2018-10-31 11:39 | NUR ---
PATIENT GIVEN RX FOR KNEE IMMOBLIZER DUE TO NONE IN STOCK THAT FIT HER.
== END 2018-10-31 11:37 | disposition home or self-care (01) ==
LOC: EDUNIT# 09:36 → ER 09:37
DX: M25.561 Pain in right knee (principal); G56.03 Carpal tunnel syndrome, bilateral upper limbs; E78.00 Pure hypercholesterolemia, unspecified; I10 Essential (primary) hypertension; E03.9 Hypothyroidism, unspecified; F41.9 Anxiety disorder, unspecified; F32.9 Major depressive disorder, single episode, unspecified; Z80.3 Family history of malignant neoplasm of breast; Z80.1 Family history of malignant neoplasm of trachea, bronchus and lung; Z82.49 Family history of ischemic heart disease and other diseases of the circulatory system; Z88.5 Allergy status to narcotic agent; Z79.82 Long term (current) use of aspirin; Z87.891 Personal history of nicotine dependence; Z90.710 Acquired absence of both cervix and uterus
CPT/HCPCS: 73562

== ENCOUNTER → 2018-11-14 | Outpatient (CLI) | payer MEDICARE, OTHER ==
[~2018-11-14] MED LIST changes: +LOVA10TA
--- NOTE | 2018-11-14 17:31 | Diagnostic Imaging Report ---
PROCEDURE: MRI right joint lower extremity without contrast. TECHNIQUE: Multiplanar, multisequence [id number] MRI of the right lower extremity was accomplished. INDICATION: Knee pain. FINDINGS: There are no prior MRI examinations available for comparison. The plain film examination of the right knee performed on 10/31/2018 failed to show any sign of an acute bony abnormality. On the proton dense fat-saturated series of this exam, there is a broad irregular tear extending through the posterior horn of the medial meniscus. There is a much smaller area of abnormal signal involving the anterior horn of the medial meniscus, but I do suspect that the anterior horn is also torn. There are also very small tears involving the articular surface of the anterior and posterior horns of the lateral meniscus. The anterior and posterior cruciate ligaments, the quadriceps and infrapatellar tendons are intact. There is edema/inflammation about both the medial collateral ligament and the fibular collateral ligament. The ligaments appear to be intact, but the abnormal signal does suggest edema/inflammation. The biceps tendon and the subscapularis tendon and the medial and lateral retinacula are unremarkable for an acute injury. On the STIR coronal series, there is increased signal in the subarticular region of the medial aspect of the proximal tibia. This may be due to bone edema from a recent bone contusion and/or microfracture. There is no other acute bony abnormality identified. There is only mild degenerative disease of the articular surfaces of the medial and lateral femoral condyles given the patient's age. The patellofemoral space is well maintained, and there is no sign of chondromalacia patella. There is a small joint effusion present. There is also edema/inflammation of the soft tissues about the knee joint. There is no Castillo's cyst identified. IMPRESSION: 1. There is a broad irregular tear extending through the posterior horn of the medial meniscus. The anterior horn of the medial meniscus is also torn, and there are small tears of the anterior and posterior horns of the lateral meniscus as well. 2. There is edema/inflammation about both collateral ligaments. The ligaments seem to be intact, however. 3. The other major ligaments and tendons show no sign of an acute injury. 4. There is bone edema involving the subarticular region of the medial aspect of the proximal tibia. Most likely, this is related to a recent contusion and/or microfracture. There is also a small joint effusion present and generalized soft tissue edema about the knee joint. Dictated on workstation # [id number]
== END ==
LOC: RAD 15:29
PROVIDERS: ATTEND Nurse Practitioner Family
DX: S83.241A Other tear of medial meniscus, current injury, right knee, initial encounter (principal); S83.281A Other tear of lateral meniscus, current injury, right knee, initial encounter; M89.9 Disorder of bone, unspecified
CPT/HCPCS: 73721

== ENCOUNTER 2019-04-11 11:11 | Outpatient (RCR) | payer MEDICARE, OTHER | END 2019-04-11 15:36 | disposition home or self-care (01) | PROVIDERS: ATTEND Orthopaedic Surgery | DX: M17.12 Unilateral primary osteoarthritis, left knee (principal) ==

== ENCOUNTER 2021-02-14 22:12 | Emergency (ER) | payer MEDICARE, OTHER ==
[~2021-02-14] VITALS: Ht 147 cm; Wt 54.5 kg
[~2021-02-14 22:12] MED LIST changes: +AMLO-250 PO; -AMLO5TAB9 PO; +ASPI-1238 PO; -ASPI-983 PO
[2021-02-14 22:54] LABS: BILIRUBIN,URINE NEGATIVE (NEGATIVE); CLARITY,URINE SL CLOUDY; COLOR,URINE YELLOW; GLUCOSE, URINE (UA) NEGATIVE (NEGATIVE); KETONES,URINE NEGATIVE (NEGATIVE); LEUKOCYTE ESTERASE ,URINE 3+ (NEGATIVE); NITRITE,URINE NEGATIVE (NEGATIVE); PROTEIN,URINE 1+ (NEGATIVE)
[2021-02-14 23:01] LABS: BACTERIA,URINE NEGATIVE /HPF; RBC,URINE >100 /HPF; WBC,URINE >100 /HPF
--- NOTE | 2021-02-14 23:07 | ED GU-Female ---
General Chief Complaint: - Urinary Stated Complaint: URINATING OFTEN / BLOOD IN URINE Allergies and Home Medications Allergies Coded Allergies: codeine (Verified Allergy, Unknown, 07/25/17) Home Medications Alprazolam 0.5 Mg Tablet, 0.25-0.5 MG PO DAILY PRN for ANXIETY, (Reported) TAKES 1/2 TO 1 OF A (0.5 MG) TABLET Amlodipine Besylate 5 Mg Tablet, 5 MG PO DAILY Prescribed by: JC PARDO on 11/12/17 1237 Aspirin 81 Mg Tablet.dr, 81 MG PO HS, (Reported) Cholecalciferol (Vitamin D3) 1,000 Unit Capsule, 1,000 UNIT PO DAILY, (Reported) Fish Oil/Dha/Epa 1 Each Capsule, 1,200 MG PO DAILY, (Reported) Gabapentin 100 Mg Capsule, 100 MG PO HS, (Reported) Multivitamin with Minerals 1 Each Tablet, 1 TAB PO DAILY, (Reported) Phenazopyridine HCl 200 Mg Tablet, 1 TAB PO TID Prescribed by: SLY JOHN on 02/14/212308 Sulfamethoxazole/Trimethoprim 1 Each Tablet, 1 EACH PO BID Prescribed by: SLY JOHN on 02/14/212308 [Levothroid] , 88 MCG DAILY Prescribed by: LAZARO LYLE on 11/13/17 1216 Past Jjppxgm-[id number]-Qjrfjb Hx Patient Social History Tobacco Use?: No Substance use?: No Alcohol Use?: No Immunizations Up To Date Influenza Vaccine Up-to-Date: Yes; Up-to-Date Seasonal Allergies Seasonal Allergies: No Past Medical History Surgeries: Yes (rt shoulder, rt/lt carpal tunnel, rt hand ) Hysterectomy, Oophorectomy, Orthopedic Respiratory: No Currently Using CPAP: No Currently Using BIPAP: No Cardiac: Yes High Cholesterol, Hypertension Neurological: No Genitourinary: No Gastrointestinal: No Musculoskeletal: Yes Arthritis Endocrine: Yes Hypothyroidsim HEENT: No Cancer: No Psychosocial: Yes Anxiety, Depression Integumentary: No Blood Disorders: No Adverse Reaction/Blood Tranf: No Family Medical History Alcoholism G8 SISTER Arthritis 19 MOTHER Cataracts 19 MOTHER Dementia 19 FATHER FH: breast cancer G8 SISTER FH: lung cancer G8 SISTER FH: macular degeneration 19 MOTHER Hypertension 19 FATHER 19 MOTHER Kidney disease 19 MOTHER Physical Exam Vital Signs Vital Signs - First Documented 02/14/21 22:24 Temp 36.8 Pulse 101 Resp 18 B/P (MAP) 171/79 (109) Pulse Ox 97 O2 Delivery Room Air Capillary Refill : Height, Weight, BMI Height: 5'3.00" Weight: 125lbs. 3.2oz. 56.680280hk; 26.6 BMI Method:Stated Progress/Results/Core Measures Suspected Sepsis SIRS Temperature: Pulse: Respiratory Rate: Blood Pressure / Mean: Results/Orders Lab Results Laboratory Tests Test 02/14/21 22:24 Range/Units Urine Color YELLOW Urine Clarity SL CLOUDY Urine pH 7.0 5-9 Urine Specific [place] 1.015 L 1.016-1.022 Urine Protein 1+ H NEGATIVE Urine Glucose (UA) NEGATIVE NEGATIVE Urine Ketones NEGATIVE NEGATIVE Urine Nitrite NEGATIVE NEGATIVE Urine Bilirubin NEGATIVE NEGATIVE Urine Urobilinogen 0.2 < = 1.0 MG/DL Urine Leukocyte Esterase 3+ H NEGATIVE Urine RBC (Auto) 3+ H NEGATIVE Urine RBC >100 H /HPF Urine WBC >100 H /HPF Urine Squamous Epithelial Cells NONE /HPF Urine Renal Epithelial Cells NONE /HPF Urine Crystals NONE /LPF Urine Bacteria NEGATIVE /HPF Urine Casts NONE /LPF Urine Mucus NEGATIVE /LPF Urine Culture Indicated NO My Orders Orders - SLY JOHN DO Ua Culture If Indicated (02/14/21 22:47) Rx-Trimeth/Sulfameth Ds Tab (Rx-Bactrim/ (02/14/21 23:09) Phenazopyridine Tablet (Pyridium Tablet) (02/14/21 23:15) Vital Signs/I&O 02/14/21 22:24 Temp 36.8 Pulse 101 Resp 18 B/P (MAP) 171/79 (109) Pulse Ox 97 O2 Delivery Room Air Capillary Refill : Departure Impression Primary Impression: Urinary tract infection Additional Impression: Acute hemorrhagic cystitis Disposition: HOME, SELF-CARE Condition: Stable Departure-Patient Inst. Decision time for Depature: 23:00 Referrals: SURY FULLER MD Patient Instructions: Blood in the Urine (Hematuria), Adult (DC), Urinary Tract Infection, Adult (DC) Add. Discharge Instructions: LOTS OF CLEAR LIQUIDS TYLENOL AND MOTRIN NEEDED FOR PAIN FOLLOW UP WITH DR. FULLER'S OFFICE IN 3-4 DAYS IF NO BETTER All discharge instructions reviewed with patient and/or family. Voiced understanding. Scripts Phenazopyridine HCl (Pyridium) 200 Mg Tablet 1 TAB PO TID, #15 TAB Prov: SLY JOHN DO 02/14/21 Sulfamethoxazole/Trimethoprim (Bactrim Ds Tablet) 1 Each Tablet 1 EACH PO BID, #20 TAB Prov: SLY JOHN DO 02/14/21 SLY JOHN DO Feb 14, 2021 23:07
[2021-02-14] MEDS ORDERED: PHEN-640 PO (23:09)
[2021-02-14] MEDS ORDERED: RX-TRIMETH/SULFA. 160-800 MG (BACTRIM DS) TAB PPK#2 PO STA (23:09)
[2021-02-14] MEDS ORDERED: SULF1TAB38 PO (23:09)
[2021-02-14] MEDS ORDERED: PHENAZOPYRIDINE 100 MG (PYRIDIUM) TABLET PO ONE (23:15)
[2021-02-14 23:33] VITALS: BP 171/79
== END 2021-02-14 22:33 | disposition home or self-care (01) ==
LOC: EDUNIT# 22:12 → ER 22:14
DX: N39.0 Urinary tract infection, site not specified (principal); I10 Essential (primary) hypertension; F41.9 Anxiety disorder, unspecified; Z79.82 Long term (current) use of aspirin; Z79.899 Other long term (current) drug therapy
CPT/HCPCS: 81000; 99283